=== PATIENT | female | born 1930 | race Caucasian/White ===

== ENCOUNTER 2018-11-25 21:15 | Inpatient (IN) | payer OTHER ==
[~2018-11-25] VITALS: Ht 170.2 cm; Wt 78.9 kg
[2018-11-25 21:30] VITALS: Ht 170.2 cm; Wt 78.9 kg
[2018-11-25] MEDS ORDERED: SOD CHLORIDE 0.9% 2,860 ML IV ONE (22:00)
[2018-11-25] MEDS ORDERED: CEFEPIME 2GM/50 ML (PMX) 50 ML IVPB STA (22:46)
[2018-11-25] MEDS ORDERED: VANCOMYCIN 1 GM (PMX) 250 ML IVPB ONE (23:00)
--- NOTE | 2018-11-25 23:55 | ERD ---
ER Documentation Chief Complaint Chief Complaint BIB RA FROM BOARD AND CARE FOR HYPOTENSION AND LOW O2 SAT HPI 88-year-old female brought in by ambulance from her board and care for low oxygen saturations and hypotension. However when ambulance did her vitals, they did not note any low blood pressure. Her oxygen saturation was in the 90s. Patient is otherwise altered and unable to answer questions appropriately. She only states that she does not feel well but is unable to explain further. ROS Limited due to altered mental status Allergies Allergies: Coded Allergies: No Known Allergy (Unverified , 11/25/18) PMhx/Soc Medical and Surgical Hx: Unable to obtain History of Surgery: No (UNABLE TO OBTAIN) Anesthesia Reaction: No Hx Neurological Disorder: Yes (ALZHEIMER'S) Hx Respiratory Disorders: No Hx Cardiac Disorders: Yes (CHF, AFIB) Hx Psychiatric Problems: No Hx Miscellaneous Medical Probl: No Hx Alcohol Use: No Hx Substance Use: No Hx Tobacco Use: No Smoking Status: Unknown if ever smoked FmHx Unable to obtain Physical Exam Vitals Vital Signs Date Temp Pulse Resp B/P (MAP) Pulse Ox O2 O2 Flow FiO2 Time Delivery Rate 11/25/18 71 20 124/85 97 Nasal 2.0 23:30 (98) Cannula 11/25/18 76 25 130/94 96 Nasal 2.0 23:00 (106) Cannula 11/25/18 98.4 78 20 104/38 98 Nasal 2.0 22:30 (60) Cannula 11/25/18 98.8 77 20 113/62 91 21:30 (79) Physical Exam INITIAL VITAL SIGNS: Reviewed by me GENERAL: Patient is lying on gurney, no apparent distress, ill-appearing HEAD: Normocephalic EYES: EOMI. PERRL. No icterus. No pallor. Lids, lashes, and conjunctiva clear. ENT: Mucous membranes dry, no erythema or tonsillar exudates. Airway patent. NECK: Supple. No masses. Full range of motion. No meningismus. No lymphadenopathy RESPIRATORY: Clear to auscultation bilaterally but poor respiratory effort. No wheezing, No rales, No rhonchi. No accessory muscle use. No retractions. CV: Regular rate and rhythm. No murmurs, No rubs or gallops. ABDOMEN: Soft, non-distended, no grimacing with palpation. No guarding. No rebound. No pulsatile mass. Bowel sounds normal. BACK: Non-tender. No CVA tenderness. EXTREMITIES: No edema. No clubbing or cyanosis. Pulses symmetric. No deficits or delays. Calves non-tender. No cords. SKIN: Warm and dry. Decreased turgor. No obvious rash, petechiae or purpura. NEUROLOGIC: Awake and alert. Normal speech. Oriented to self only. Moves all extremities equally. No focal deficits. Result Diagram: 11/26/18 0706 11/26/18 07 Results 24 hrs Laboratory Tests Test 11/25/18 21:51 11/25/18 21:52 11/25/18 21:59 11/25/18 22:36 White Blood Count 7.9 10^3/ul Red Blood Count 3.90 10^6/ul Hemoglobin 12.0 g/dl Hematocrit 36.7 % Mean Corpuscular 94.1 fl Volume Mean Corpuscular 30.8 pg Hemoglobin Mean Corpuscular 32.7 g/dl Hemoglobin Concent Red Cell 16.0 % Distribution Width Platelet Count 53 10^3/UL Mean Platelet Volume 13.1 fl Immature 0.400 % Granulocytes % Neutrophils % % Segmented 75 % Neutrophils % (Manual) Band Neutrophils % 19 % (Manual) Lymphocytes % % Lymphocytes % 5 % (Manual) Monocytes % % Monocytes % (Manual) 1 % Eosinophils % % Basophils % % Nucleated Red Blood 0.3 /100WBC Cells % Immature 0.030 10^3/ul Granulocytes # Neutrophils # 10^3/ul Neutrophils # 6.0 10^3/ul (Manual) Band Neutrophils # 1.5 10^3/ul Lymphocytes (Manual) 0.3 10^3/ul Lymphocytes # 10^3/ul Monocytes # 10^3/ul Monocytes # (Manual) 0.0 10^3/ul Eosinophils # 10^3/ul Basophils # 10^3/ul Nucleated Red Blood 10^3/ul Cells # Platelet Estimate DECREASED Giant Platelets 3 % Polychromasia 2+ Anisocytosis 2+ Macrocytosis 2+ Lactic Acid Level 4.3 mmol/L Ammonia 55 umol/l Sodium Level 139 mmol/L Potassium Level 3.9 mmol/L Chloride Level 108 mmol/L Carbon Dioxide Level 22 mmol/L Anion Gap 9 Blood Urea Nitrogen 39 mg/dl Creatinine 0.72 mg/dl Est Glomerular mL/min Filtrat Rate mL/min Glucose Level 169 mg/dl Calcium Level 9.3 mg/dl Total Bilirubin 1.1 mg/dl Direct Bilirubin 0.00 mg/dl Indirect Bilirubin 1.1 mg/dl Aspartate Amino 53 IU/L Transf (AST/SGOT) Alanine 36 IU/L Aminotransferase (AL T/SGPT) Alkaline Phosphatase 116 IU/L Troponin I 0.727 ng/ml Total Protein 4.7 g/dl Albumin 2.2 g/dl Globulin 2.50 g/dl Albumin/Globulin 0.88 Ratio Free Thyroxine Index 1.87 ug/ml Thyroxine (T4) 3.6 ug/dl Triiodothyronine 52.0 % (T3) Uptake Salicylates Level < 1.0 mg/dl Acetaminophen Level < 10.0 ug/ml Ethyl Alcohol Level < 10.0 mg/dl Bedside Glucose 155 mg/dL Urine Opiates Screen Negative Urine Barbiturates Negative Urine Amphetamines Negative Screen Urine Negative Benzodiazepines Screen Urine Cocaine Screen Negative Urine Cannabinoids Negative Test 11/25/18 23:16 11/25/18 23:24 Urine Color SCOTT Urine Clarity SLIGHTLY CLOUDY Urine pH 5.0 Urine Specific 1.021 [place] Urine Ketones NEGATIVE mg/dL Urine Nitrite NEGATIVE mg/dL Urine Bilirubin NEGATIVE mg/dL Urine Urobilinogen 1+ mg/dL Urine Leukocyte TRACE Casey/ul Esterase Urine Microscopic 2 /HPF RBC Urine Microscopic 15 /HPF WBC Urine Squamous FEW /HPF Epithelial Cells Urine Transitional FEW /HPF Epithelial Cells Urine Bacteria FEW /HPF Urine Mucus FEW /HPF Urine Hemoglobin NEGATIVE mg/dL Urine Glucose NEGATIVE mg/dL Urine Total Protein NEGATIVE mg/dl Lactic Acid Level 3.7 mmol/L Thyroid Stimulating 4.630 MIU/L Hormone (TSH) Current Medications Medications Dose Sig/Stanley Start Time Status Last (Trade) Ordered Route PRN Stop Time Admin Dose Reason Admin Sodium 2,860 ml @ BOLUS X1 11/25/18 DC 11/25/18 Chloride 1,430 mls/hr ONCE IV 22:00 11/26/18 22:01 10:23 Cefepime HCl 50 ml @ ONCE STAT 11/25/18 DC 11/25/18 100 mls/hr IVPB 22:46 11/25/18 23:49 23:15 Vancomycin 250 ml @ ONCE ONCE 11/25/18 DC 11/25/18 HCl 125 mls/hr IVPB 23:00 11/26/18 23:49 00:59 Procedures/MDM EMERGENT LABS AND DIAGNOSTIC STUDIES: Lab Results above were reviewed and interpreted by me. CBC: Mild anemia, thrombocytopenia CMP: Elevated BUN with normal creatinine, likely secondary to dehydration and prerenal azotemia. No evidence of clinically significant electrolyte abnormality, acidosis, renal failure, hypoglycemia, liver disease, or biliary obstruction Troponin elevated, c concerning for NSTEMI Lactate elevated, concerning for hypoperfusion and septic shock UA: no clear evidence of infection 12-lead EKG was interpreted by Beverly Gibson MD: Sinus rhythm with PVCs Normal axis Normal intervals No acute ST or T wave changes suggestive of acute ischemia or STEMI. Radiology Results as interpreted by Radiology below were reviewed by SAntony Ashby. Pepe shaw MD: Chest x-ray: Cardiomegaly. Left greater than right pleural effusions with associated basilar atelectasis versus infiltrates. CT head pending Initial Nursing notes reviewed. Previous Medical Records requested via the Electronic Health Record. EMERGENCY DEPARTMENT COURSE / MEDICAL DECISION MAKING: Admit MDM: Patient is presenting with altered mental status. She does look clinically dehydrated. Workup did not show any specific source of infection. CT head was still pending on admission. She was treated with IV fluids and antibiotics. the patient's infectious symptoms have not stabilized, and the patient is at risk of rapid decompensation. The patient will be admitted for careful hydration, antibiotic therapy, and infectious source control. I spoke with Maury and the authorized admission here as the patient is unstable. Severe Sepsis criteria: Infectious source: Unknown End organ damage indicated by: Lactate > 2.0 mmol/L Sepsis Management: Time of recognition of severe sepsis: 22:39 Within 3 hours of recognition: Blood cultures x 2 before broad-spectrum antibiotics:Yes 30 ml/kg NS bolus Completed Initial lactate 4.3 Repeat lactate pending Septic Shock Assessment: Any lactic acid > 4.0 YES Persistent hypotension (SBP < 90 or 40 mmHg drop, MAP < 65) despite 30 mL/kg IV fluid bolus No A focused sepsis perfusion/reperfusion reassessment examination was performed post 30ml/kg bolus @ 23:30 Temp 98.4F, BP 124/85, HR 71, RR 20, Pox 95% Accepting Care Team Current data and ongoing care discussed. Admitting Physician: Abdullahi Robotic Maintenance Technician(s): Outstanding Data: cultures Critical Care Time: 40 minutes Treatments/Evaluations: Close monitoring and treatment of unstable vital signs, cardiorespiratory, and neurologic status, while maintaining tight balance of fluid, respiratory, and cardiac interventions. This includes the administration of emergency fluid management while maintaining close respiratory support as well as the provision of immediate and broad-spectrum antibiotic therapy, while performing a simultaneous assessment for possible sources in order to direct ta rgeted therapy. This time includes discussing the case with the patient and the patients family.This time also includes the consideration for invasive and chemical support to prevent cardiopulmonary collapse. This time does not include all procedures stated elsewhere in this record. This time also includes reviewing old records, labs and radiological studies. This time includes examining and reexamining the patient. Additionally, this time also includes arranging care with admitting and consulting physicians. Departure Diagnosis: Primary Impression: Lactic acidosis Additional Impressions: Severe dehydration Prerenal azotemia Non-STEMI (non-ST elevated myocardial infarction) Altered mental status Altered mental status type: unspecified Qualified Codes: R41.82 - Altered mental status, unspecified Condition: Critical LIZ GIBSON MD Nov 25, 2018 23:54
[2018-11-26] VITALS (13 sets, daily range): BP systolic 122–136; BP diastolic 62–70; PULSE 37–90; RESP 17–18
[2018-11-26] MEDS ORDERED: NACL 0.9% 3 ML SYG IV SCH
[2018-11-26] MEDS ORDERED: DOCUSATE SODIUM 100 MG CAP PO PRN
[2018-11-26] MEDS ORDERED: PIPER-TAZO 3.375 GM IV (PMX) 100 ML IVPB SCH
[2018-11-26] MEDS ORDERED: ACETAMINOPHEN 325 MG TAB PO PRN
[2018-11-26] MEDS ORDERED: ONDANSETRON 4 MG INJ IV PRN ×2
--- NOTE | 2018-11-26 01:00 | HP ---
Date/Time of Note Date/Time of Note DATE: 11/26/18 TIME: 01:00 Assessment/Plan VTE Prophylaxis SCD applied (from Ns): No SCD contraindicated: other (Will obtain right lower extremity Dopplers to rule out DVT prior to initiating SCDs) Pharmacological prophylaxis: NA/contraindicated Pharm contraindication: thrombocytopenia Lines/Catheters [facility] Saline Lock Urinary Cath still in place: Yes Reason Cath still needed: other (indicate) (critical illness) Assessment/Plan Hospital Course This is a 88-year-old female was being admitted to the telemetry floor for: #1 acute on chronic encephalopathy: Unsure patient's baseline. She does have Alzheimer's. Possibly secondary to underlying urinary tract infection. CT scan of the brain did not show any acute ab normality's. Will monitor closely. We will need to discuss with family regarding patient's baseline status. Her daughter Britany does state that she will come visit her in the hospital today. #2 non-STEMI: Type I versus type II. Patient at the current time is not complaining of any chest pain and she does not appear to be in any acute dist ress. Secondary to demand given patient's underlying urinary tract infection. Will trend cardiac enzymes, will consult cardiology. Will check an echocardiogram. Consider aspirin, though will need to monitor her thrombocytopenia. #3 Lower extremity edema: possibly underlying CHF. will check echo. She did receive fluid bolus in the ED, at the current time will try albumin instead of IVF given overload state. #4 lactic acidosis: Possibly secondary to underlying dehydration, urinary tract infection. Will give albumin at the current time given the fact that the patient has had bilateral lower extremity edema as well as some mild congestion noted on the chest x-ray. She does not appear to be in any respiratory distress at the current time. Will trend lactic acid levels. Continue antibiotics. #5 Question urinary tract infection: aztreonam at the current time, will hold vancomycin and cefepime secondary to patient's thrombus cytopenia. Await culture results. #6 thrombocytopenia: Etiology unknown, will check an abdominal ultrasound to assess liver and spleen. Will hold off on any anticoagulation at the current time. #7 CODE STATUS: DNR/DNI, I did discuss with the daughter Britany over the phone regarding the patient's clinical condition. At the current time we will try con servative treatment and if any other clinical conditions arise will discuss further care with the daughter Britany. She does understand her mother's overall health as well as poor functionality/stability. her phone number is in the patient's paper chart and she will be coming to visit her mother today. Consider hospice evaluation. Further treatment strategy will be implemented as per the clinical course Result Diagram: 11/25/18215011/25/182151 Results 24hrs Laboratory Tests Test 11/25/18 21:51 11/25/18 21:52 11/25/18 21:59 11/25/18 22:36 White Blood Count 7.9 Red Blood Count 3.90 L Hemoglobin 12.0 Hematocrit 36.7 L Mean Corpuscular 94.1 Volume Mean Corpuscular 30.8 Hemoglobin Mean Corpuscular 32.7 Hemoglobin Concent Red Cell 16.0 H Distribution Width Platelet Count 53 L Mean Platelet 13.1 H Volume Immature 0.400 Granulocytes % Neutrophils % Segmented 75 Neutrophils % (Manual) Band Neutrophils % 19 H (Manual) Lymphocytes % Lymphocytes % 5 L (Manual) Monocytes % Monocytes % 1 (Manual) Eosinophils % Basophils % Nucleated Red 0.3 H Blood Cells % Immature 0.030 Granulocytes # Neutrophils # Neutrophils # 6.0 (Manual) Band Neutrophils # 1.5 H Lymphocytes 0.3 L (Manual) Lymphocytes # Monocytes # Monocytes # 0.0 L (Manual) Eosinophils # Basophils # Nucleated Red Blood Cells # Platelet Estimate DECREASED Giant Platelets 3 H Polychromasia 2+ Anisocytosis 2+ Macrocytosis 2+ Lactic Acid Level 4.3 *H Ammonia 55 H Sodium Level 139 Potassium Level 3.9 Chloride Level 108 Carbon Dioxide 22 Level Anion Gap 9 Blood Urea 39 H Nitrogen Creatinine 0.72 Est Glomerular Filtrat Rate mL/min Glucose Level 169 Calcium Level 9.3 Total Bilirubin 1.1 Direct Bilirubin 0.00 Indirect Bilirubin 1.1 Aspartate Amino 53 H Transf (AST/SGOT) Alanine 36 Aminotransferase ( ALT/SGPT) Alkaline 116 Phosphatase Troponin I 0.727 *H Total Protein 4.7 L Albumin 2.2 L Globulin 2.50 Albumin/Globulin 0.88 Ratio Free Thyroxine 1.87 Index Thyroxine (T4) 3.6 L Triiodothyronine 52.0 H (T3) Uptake Salicylates Level < 1.0 L Acetaminophen < 10.0 L Level Ethyl Alcohol < 10.0 H Level Bedside Glucose 155 Urine Opiates Negative Screen Urine Barbiturates Negative Urine Amphetamines Negative Screen Urine Negative Benzodiazepines Screen Urine Cocaine Negative Screen Urine Cannabinoids Negative Test 11/25/18 23:16 11/25/18 23:24 Urine Color SCOTT Urine Clarity SLIGHTLY CLOUDY A Urine pH 5.0 Urine Specific 1.021 [place] Urine Ketones NEGATIVE Urine Nitrite NEGATIVE Urine Bilirubin NEGATIVE Urine Urobilinogen 1+ H Urine Leukocyte TRACE A Esterase Urine Microscopic 2 RBC Urine Microscopic 15 H WBC Urine Squamous FEW Epithelial Cells Urine Transitional FEW A Epithelial Cells Urine Bacteria FEW A Urine Mucus FEW A Urine Hemoglobin NEGATIVE Urine Glucose NEGATIVE Urine Total NEGATIVE Protein Lactic Acid Level 3.7 *H Thyroid 4.630 Stimulating Hormone (TSH) HPI/ROS Admit Date/Time Admit Date/Time Hx of Present Illness Chief complaint: Hypertension, low oxygenation and boarding care The following history was obtained from the ED physician documentation as well as from the daughter Britany over the phone as patient was not able to provide hi story given her Alzheimer's. This 88-year-old female brought in by ambulance from her board and care for low oxygen saturations and hypotension. However when ambulance did her vitals, they did not note any low blood pressure. Her oxygen saturation was in the 90s. Patient is otherwise altered and unable to answer questions appropriately. She only states that she does not feel well but is unable to explain further. On exam she does not appear to be in any acute distress. She does appear to be dehydrated. She does have bilateral lower extremity edema right greater than left. Of note there was not much history provided from the boarding care aside from that the patient has Alzheimer's. And the patient's daughter did not know specifically what medications the patient was on. Allergies: NKDA Medications: Unknown ROS Subjective hx not possible: other (Alzheimer's dementia unable to provide adequate history) PMH/Family/Social Past Medical History Alzheimer's Medications Current Medications Vancomycin HCl 250 ml @ 125 mls/hr ONCE ONCE IVPB Last administered on 11/25/18at 23:49; Admin Dose 125 MLS/HR; Start 11/25/18 at 23:00; Stop 11/26/18 at 00:59 Ondansetron HCl (Zofran Inj) 4 mg ER BRIDGE PRN IV NAUSEA/VOMITING; Start 11/26/18 at 00:00; Stop 11/26/18 at 23:59 Acetaminophen (Tylenol Tab) 650 mg ER BRIDGE PRN PO .MILD PAIN 1-3 OR TEMP; Start 11/26/18 at 00:00; Stop 11/26/18 at 23:59 IV Flush (NS 3 ml) 3 ml PER PROTOCOL IV ; Start 11/26/18 at 00:00 Ondansetron HCl (Zofran Inj) 4 mg Q6H PRN IV NAUSEA/VOMITING; Start 11/26/18 at 00:00 Acetaminophen (Tylenol Tab) 650 mg Q6H PRN PO .PAIN 1-3 OR TEMP; Start 11/26/18 at 00:00 Docusate Sodium (Colace) 100 mg Q12H PRN PO .CONSTIPATION; Start 11/26/18 at 00:00 Bisacodyl (Dulcolax) 5 mg DAILY PRN PO .CONSTIPATION; Start 11/26/18 at 00:00 Albumin Human 100 ml @ 100 mls/hr Q1H IV ; Start 11/26/18 at 00:00; Stop 11/26/18 at 01:59 Aztreonam 50 ml @ 100 mls/hr Q12 IVPB ; Start 11/26/18 at 04:00; Status UNV Coded Allergies: No Known Allergy (Unverified , 11/25/18) Past Surgical History Past Surgical Hx: no surgical history Family History Significant Family History: no pertinent family hx Social History Alcohol Use: none Smoking Status: Never smoker Drug Use: none Exam/Review of Systems Vital Signs Vitals Vital Signs Date Temp Pulse Resp B/P (MAP) Pulse Ox O2 O2 Flow FiO2 Time Delivery Rate 11/25/18 76 25 130/94 96 Nasal 2.0 23:00 (106) Cannula 11/25/18 98.4 22:30 Intake and Output 11/25/18 11/25/18 11/26/18 1414:59 22:59 06:59 IntakeIntake Total 2910 ml BalanceBalance 2910 ml Exam Exam General: Patient is currently lying in bed, she does not appear to be in any ac reji distress, she does have Alzheimer's and does not hemorrhage do appear dry HEENT: Atraumatic, normocephalic. The pupils are equal, round and reactive. Extraocular motor are intact, mucous members dry Neck: Supple with full range of motion. No rigidity or meningismus Chest: Nontender Lungs: Clear to auscultation bilaterally no crackles rales or wheezing Heart: Normal S1-S2, Regular rhythm and rate. No murmur, S3, or S4 Abdomen: Soft , nontender, nondistended , bowel sounds are present. No guarding no rebound tenderness , No masses or organomegaly. No costovertebral temporal angle mass Extremities: Bilateral lower extremity edema, greater on the right leg Neurologic: Awake, unable to provide meaningful history given patient's Alzheimer's. I am unsure of her baseline at the current moment as well. Additional Comments PROCEDURE: XR Chest. CLINICAL INDICATION: Altered mental status. TECHNIQUE: Single frontal chest x-ray. COMPARISON: None. FINDINGS: Heart is enlarged.. There is no congestive heart failure.. There are left greater right pleural effusions with associated basilar atelectasis versus infiltrate.. There is no pleural effusion. There is no pneumothorax. There are degenerative changes of the thoracic spine and shoulders.. IMPRESSION: Cardiomegaly. Left arm right pleural effusions with associated basilar atelectasis versus infiltrates. RPTAT: HMVK .Mathieu Lunsford MD, MD Date Time Electronically viewed and signed by .Mathieu Lunsford MD, on 11/25/2018 23:03 .K/ CC: LIZ VILLARREAL MD [id number] 12-lead EKG Normal Sinus Rhythm with ventricular rate of [] beats per minute Normal axis Normal intervals No acute ST or T wave changes suggestive of acute ischemia or STEMI. JOE MUNOZ Nov 26, 2018 01:00
[2018-11-26] MEDS: ALBUMIN HUMAN 25% 100 ML IV SCH ×3 (01:08→02:09)
[2018-11-26] MEDS ORDERED: AZTREONAM 1 GM/NS (PMX) 50 ML IVPB SCH (04:00)
[2018-11-26] MEDS ORDERED: ASPIRIN (EC) 325 MG TAB PO ONE (09:30)
--- NOTE | 2018-11-26 11:17 | RADRPT ---
Echocardiogram Report Patient Name: VIPIN ANDRESPatient ID: [id number] : [id number] (88y 6m)Study Date: 11/26/2018 8:02:37 AM Gender: FAccession #: [id number] Tech: Rodney Lopes [facility] Location: [id number]- Ref.Physician: JOE MUNOZ Height(Cm): BSA: Weight(Kg): Quality: AdequateAccount #: Procedures: Echocardiographic Report: Transthoracic echocardiogram with complete 2D, M-Mode, and doppler examination. Indications: Elevated Troponin. Measurements: 2D/M Mode Doppler Measurement Value Normal Range Measurement Value Normal Range LVIDd 2D 5.7 [ 3.8 - 5.2 ] cm GILBERTO VTI 0.5 [ 2.0 - 4.0 ] cm2 LVIDs 2D 5.1 [ 2.2 - 3.5 ] cm AV Mean Xavier 2.3 [ 70.0 - 90.0 ] cm/sec LVPWd 2D 0.9 [ 0.6 - 0.9 ] cm AV Mean PG 24.0 [ 2.0 - 4.0 ] mmHg IVSd 2D 0.8 [ 0.6 - 0.9 ] cm AV Peak Xavier 2.7 [ 100.0 - 170.0 ] cm/se c AoR Diam 2D 2.8 [ 2.3 - 3.1 ] cm AV Peak PG 28.0 [ 2.0 - 9.0 ] mmHg EDV 2D 161.0 [ 46.0 - 106.0 ] ml AV VTI 90.2 cm ESV 2D 122.0 [ 14.0 - 42.0 ] ml LVOT Mean Xavier 0.3 [ 60.0 - 80.0 ] cm/sec EF 2D 24.2 [ 54.0 - 74.0 ] percent LVOT Peak Xavier 0.5 [ 70.0 - 110.0 ] cm/sec LA Dimen 2D 3.7 [ 2.7 - 3.8 ] cm LVOT Peak PG 1.0 [ 2.0 - 6.0 ] mmHg LVOT Diam 2.0 [ 2.1 - 2.5 ] cm LVOT VTI 13.4 [ 20.0 - 30.0 ] cm MV E Peak Xavier 0.6 [ 60.0 - 130.0 ] cm/sec MV A Peak Xavier 0.6 [ 100.0 - 120.0 ] cm/se c MV E/A 0.9 [ 0.8 - 1.5 ] ratio MV PHT 55.0 [ 20.0 - 100.0 ] msec MV Decel Time 187 [ 104 - 258 ] msec MV Decel [place] 3 Lat E` Xavier 0.0 [ 10.0 - 15.0 ] cm/sec Lateral E/E` 15.6 [ 1.0 - 2.0 ] ratio Med E` Xavier 0.0 cm/sec MV E/A 0.9 [ 0.8 - 1.5 ] ratio MVA PHT 4.0 [ 2.0 - 4.0 ] cm2 TR Peak Xavier 3.0 [ 100.0 - 280.0 ] cm/se c TR Peak PG 37.0 mmHg RVSP 37.0 [ 10.0 - 36.0 ] mmHg RA Pressure 12.0 mmHg Findings: Left Ventricle: Normal left ventricular wall thickness. Mild enlargement of left ventricle cavity. Severe global left ventricular systolic dysfunction. Ejection fraction is visually estimated at 30 %. Tissue Doppler/Mitral Doppler indices are consistent with impaired relaxation (Stage I diastolic dysfunction). Right Ventricle: Normal right ventricular size. Moderate right ventricular hypokinesis. Left Atrium: There is moderate enlargement of left atrium. Right Atrium: There is moderate enlargement of right atrium. Atrial Septum: Normal atrial septum. Ventricular septum: Normal/intact ventricular septum. Mitral Valve: Normal appearance of the mitral valve. Mild mitral valve regurgitation. Aortic Valve: Severe aortic stenosis. Aortic valve Max velocity 3.26 m/sec. Max PG 42.40 mmHg. Mean PG 24.00 mmHg. Aortic valve area 0.47 cm2. Aortic cusps appear severely calcified. Mild aortic valve regurgitation. Tricuspid Valve: Normal appearance of the tricuspid valve. Estimated peak PA systolic pressure 49 mmHg. There is mild to moderate tricuspid regurgitation. Pulmonic Valve: Normal pulmonic valve appearance. No evidence of pulmonic regurgitation. Pericardium: Pleural effusion seen. Aorta: Normal aortic root. IVC: Dilated inferior vena cava with poor inspiratory collapse consistent with elevated right atrial pressures. Pulmonary Artery: Not well visualized. Conclusions: Normal left ventricular wall thickness. Mild enlargement of left ventricle cavity. Severe global left ventricular systolic dysfunction. Ejection fraction is visually estimated at 30 %. Tissue Doppler/Mitral Doppler indices are consistent with impaired relaxation (Stage I diastolic dysfunction). Low-flow, low gradient severe aortic stenosis. Aortic valve Max velocity 3.26 m/sec. Max PG 42.40 mmHg. Mean PG 24.00 mmHg. Aortic valve area 0.47 cm2. Dimensionless index 0.14. Aortic cusps appear severely calcified. Mild aortic valve regurgitation. There is mild to moderate tricuspid regurgitation. There is moderate enlargement of left atrium.There is moderate enlargement of right atrium. Pleural effusion seen. Estimated peak PA systolic pressure 49 mmHg based on RA pressure of 15 mmHg. Electronically Signed By: Pavan Sam 2018-11-26 11:15:54 PDT
[2018-11-26] MEDS: FUROSEMIDE 20 MG INJ IV SCH ×2 (11:20→18:21)
--- NOTE | 2018-11-26 11:42 | PN ---
Date/Time of Note Date/Time of Note DATE: 11/26/18 TIME: 11:39 Assessment/Plan VTE Prophylaxis SCD applied (from Nsg): Yes Pharmacological prophylaxis: heparin Lines/Catheters IV Catheter Type (from Nrsg): Saline Lock Urinary Cath still in place: Yes Reason Cath still needed: urinary retention Assessment/Plan Hospital Course EXAM: Resitng comfotably Mild tachypnea + JVD 2/6 systolic murmur Tachypneic, nonlabored Abdomen soft, mild tenderness to deep palpation in RUQ No peripheral edema A/P: 88 yo female with dementia who presented with respiratory distress and hypotension. Found to have systolic CHF, , bactremia and possible cholecystitis Acute systolic CHF with causing b/l pleural effusions and respiratory failure: - Cautious diuresis initiated bacteremia with possible cholecytisis: - Continue vanco/aztreonema - Await BC speciation - Cholecystostomy tube evaluation Dementia: - Stable NSTEMI: - Likely type II CT DNR per family Result Diagram: 11/26/18 0706 11/26/18 0706 Results 24hrs Laboratory Tests Test 11/25/18 21:51 11/25/18 21:52 11/25/18 21:59 11/25/18 22:36 White Blood Count 7.9 Red Blood Count 3.90 L Hemoglobin 12.0 Hematocrit 36.7 L Mean Corpuscular 94.1 Volume Mean Corpuscular 30.8 Hemoglobin Mean Corpuscular 32.7 Hemoglobin Concent Red Cell 16.0 H Distribution Width Platelet Count 53 L Mean Platelet 13.1 H Volume Immature 0.400 Granulocytes % Neutrophils % Segmented 75 Neutrophils % (Manual) Band Neutrophils % 19 H (Manual) Lymphocytes % Lymphocytes % 5 L (Manual) Monocytes % Monocytes % 1 (Manual) Eosinophils % Basophils % Nucleated Red 0.3 H Blood Cells % Immature 0.030 Granulocytes # Neutrophils # Neutrophils # 6.0 (Manual) Band Neutrophils # 1.5 H Lymphocytes 0.3 L (Manual) Lymphocytes # Monocytes # Monocytes # 0.0 L (Manual) Eosinophils # Basophils # Nucleated Red Blood Cells # Platelet Estimate DECREASED Giant Platelets 3 H Polychromasia 2+ Anisocytosis 2+ Macrocytosis 2+ Lactic Acid Level 4.3 *H Ammonia 55 H Sodium Level 139 Potassium Level 3.9 Chloride Level 108 Carbon Dioxide 22 Level Anion Gap 9 Blood Urea 39 H Nitrogen Creatinine 0.72 Est Glomerular Filtrat Rate mL/min Glucose Level 169 Calcium Level 9.3 Total Bilirubin 1.1 Direct Bilirubin 0.00 Indirect Bilirubin 1.1 Aspartate Amino 53 H Transf (AST/SGOT) Alanine 36 Aminotransferase ( ALT/SGPT) Alkaline 116 Phosphatase Troponin I 0.727 *H Total Protein 4.7 L Albumin 2.2 L Globulin 2.50 Albumin/Globulin 0.88 Ratio Free Thyroxine 1.87 Index Thyroxine (T4) 3.6 L Triiodothyronine 52.0 H (T3) Uptake Salicylates Level < 1.0 L Acetaminophen < 10.0 L Level Ethyl Alcohol < 10.0 H Level Bedside Glucose 155 Urine Opiates Negative Screen Urine Barbiturates Negative Urine Amphetamines Negative Screen Urine Negative Benzodiazepines Screen Urine Cocaine Negative Screen Urine Cannabinoids Negative Test 11/25/18 23:16 11/25/18 23:24 11/26/18 01:26 11/26/18 01:27 Urine Color SCOTT Urine Clarity SLIGHTLY CLOUDY A Urine pH 5.0 Urine Specific 1.021 [place] Urine Ketones NEGATIVE Urine Nitrite NEGATIVE Urine Bilirubin NEGATIVE Urine Urobilinogen 1+ H Urine Leukocyte TRACE A Esterase Urine Microscopic 2 RBC Urine Microscopic 15 H WBC Urine Squamous FEW Epithelial Cells Urine Transitional FEW A Epithelial Cells Urine Bacteria FEW A Urine Mucus FEW A Urine Hemoglobin NEGATIVE Urine Glucose NEGATIVE Urine Total NEGATIVE Protein Lactic Acid Level 3.7 *H 3.3 *H Thyroid 4.630 Stimulating Hormone (TSH) Creatine Kinase 38 Creatine Kinase 12.4 Index Creatinine Kinase 4.70 H MB (Mass) Troponin I 0.789 *H Test 11/26/18 07:06 White Blood Count 8.5 Red Blood Count 3.71 L Hemoglobin 11.3 L Hematocrit 35.1 L Mean Corpuscular 94.6 Volume Mean Corpuscular 30.5 Hemoglobin Mean Corpuscular 32.2 Hemoglobin Concent Red Cell 16.0 H Distribution Width Platelet Count 42 #L Mean Platelet 13.4 H Volume Immature 0.800 H Granulocytes % Neutrophils % Segmented 83 H Neutrophils % (Manual) Band Neutrophils % 12 H (Manual) Lymphocytes % Lymphocytes % 4 L (Manual) Monocytes % Monocytes % 1 (Manual) Eosinophils % Basophils % Nucleated Red 0.2 H Blood Cells % Immature 0.070 H Granulocytes # Neutrophils # Neutrophils # 7.1 (Manual) Band Neutrophils # 1.0 H Lymphocytes 0.3 L (Manual) Lymphocytes # Monocytes # Monocytes # 0.0 L (Manual) Eosinophils # Basophils # Nucleated Red Blood Cells # Platelet Estimate DECREASED Polychromasia 1+ Poikilocytosis 2+ Anisocytosis 1+ Macrocytosis 1+ Ovalocytes 1+ Sodium Level 140 Potassium Level 4.3 Chloride Level 111 H Carbon Dioxide 21 Level Anion Gap 8 Blood Urea 38 H Nitrogen Creatinine 0.62 Est Glomerular Filtrat Rate mL/min Glucose Level 107 # Hemoglobin A1c 5.2 Lactic Acid Level 2.6 *H Calcium Level 9.0 Magnesium Level 1.9 Total Bilirubin 1.2 Direct Bilirubin 0.00 Indirect Bilirubin 1.2 H Aspartate Amino 72 H Transf (AST/SGOT) Alanine 31 Aminotransferase ( ALT/SGPT) Alkaline 98 Phosphatase Creatine Kinase 64 Creatine Kinase 18.3 Index Creatinine Kinase 11.70 H MB (Mass) Troponin I 1.400 *H B-Type Natriuretic 7210 H Peptide Total Protein 5.5 L Albumin 2.8 L Globulin 2.70 Albumin/Globulin 1.03 Ratio Triglycerides 64 Level Cholesterol Level 81 L LDL Cholesterol, 39 Calculated HDL Cholesterol 29 L Cholesterol/HDL 2.7 Ratio Subjective 24 Hr Interval Summary Free Text/Dictation Patient appears comfortable Clearly with dementia though able to answer simple questions Does not seem to have any major pain Exam/Review of Systems Exam Vitals Vital Signs Date Temp Pulse Resp B/P (MAP) Pulse Ox O2 O2 Flow FiO2 Time Delivery Rate 11/26/18 Nasal 2.0 08:30 Cannula 11/26/18 60 08:01 11/26/18 98.2 18 124/70 98 07:34 (88) Intake and Output 11/25/18 11/25/18 11/26/18 1515:00 23:00 07:00 IntakeIntake Total 2910 ml BalanceBalance 2910 ml Results Results 24hrs Laboratory Tests Test 11/25/18 21:51 11/25/18 21:52 11/25/18 21:59 11/25/18 22:36 White Blood Count 7.9 Red Blood Count 3.90 L Hemoglobin 12.0 Hematocrit 36.7 L Mean Corpuscular 94.1 Volume Mean Corpuscular 30.8 Hemoglobin Mean Corpuscular 32.7 Hemoglobin Concent Red Cell 16.0 H Distribution Width Platelet Count 53 L Mean Platelet 13.1 H Volume Immature 0.400 Granulocytes % Neutrophils % Segmented 75 Neutrophils % (Manual) Band Neutrophils % 19 H (Manual) Lymphocytes % Lymphocytes % 5 L (Manual) Monocytes % Monocytes % 1 (Manual) Eosinophils % Basophils % Nucleated Red 0.3 H Blood Cells % Immature 0.030 Granulocytes # Neutrophils # Neutrophils # 6.0 (Manual) Band Neutrophils # 1.5 H Lymphocytes 0.3 L (Manual) Lymphocytes # Monocytes # Monocytes # 0.0 L (Manual) Eosinophils # Basophils # Nucleated Red Blood Cells # Platelet Estimate DECREASED Giant Platelets 3 H Polychromasia 2+ Anisocytosis 2+ Macrocytosis 2+ Lactic Acid Level 4.3 *H Ammonia 55 H Sodium Level 139 Potassium Level 3.9 Chloride Level 108 Carbon Dioxide 22 Level Anion Gap 9 Blood Urea 39 H Nitrogen Creatinine 0.72 Est Glomerular Filtrat Rate mL/min Glucose Level 169 Calcium Level 9.3 Total Bilirubin 1.1 Direct Bilirubin 0.00 Indirect Bilirubin 1.1 Aspartate Amino 53 H Transf (AST/SGOT) Alanine 36 Aminotransferase ( ALT/SGPT) Alkaline 116 Phosphatase Troponin I 0.727 *H Total Protein 4.7 L Albumin 2.2 L Globulin 2.50 Albumin/Globulin 0.88 Ratio Free Thyroxine 1.87 Index Thyroxine (T4) 3.6 L Triiodothyronine 52.0 H (T3) Uptake Salicylates Level < 1.0 L Acetaminophen < 10.0 L Level Ethyl Alcohol < 10.0 H Level Bedside Glucose 155 Urine Opiates Negative Screen Urine Barbiturates Negative Urine Amphetamines Negative Screen Urine Negative Benzodiazepines Screen Urine Cocaine Negative Screen Urine Cannabinoids Negative Test 11/25/18 23:16 11/25/18 23:24 11/26/18 01:26 11/26/18 01:27 Urine Color SCOTT Urine Clarity SLIGHTLY CLOUDY A Urine pH 5.0 Urine Specific 1.021 [place] Urine Ketones NEGATIVE Urine Nitrite NEGATIVE Urine Bilirubin NEGATIVE Urine Urobilinogen 1+ H Urine Leukocyte TRACE A Esterase Urine Microscopic 2 RBC Urine Microscopic 15 H WBC Urine Squamous FEW Epithelial Cells Urine Transitional FEW A Epithelial Cells Urine Bacteria FEW A Urine Mucus FEW A Urine Hemoglobin NEGATIVE Urine Glucose NEGATIVE Urine Total NEGATIVE Protein Lactic Acid Level 3.7 *H 3.3 *H Thyroid 4.630 Stimulating Hormone (TSH) Creatine Kinase 38 Creatine Kinase 12.4 Index Creatinine Kinase 4.70 H MB (Mass) Troponin I 0.789 *H Test 11/26/18 07:06 White Blood Count 8.5 Red Blood Count 3.71 L Hemoglobin 11.3 L Hematocrit 35.1 L Mean Corpuscular 94.6 Volume Mean Corpuscular 30.5 Hemoglobin Mean Corpuscular 32.2 Hemoglobin Concent Red Cell 16.0 H Distribution Width Platelet Count 42 #L Mean Platelet 13.4 H Volume Immature 0.800 H Granulocytes % Neutrophils % Segmented 83 H Neutrophils % (Manual) Band Neutrophils % 12 H (Manual) Lymphocytes % Lymphocytes % 4 L (Manual) Monocytes % Monocytes % 1 (Manual) Eosinophils % Basophils % Nucleated Red 0.2 H Blood Cells % Immature 0.070 H Granulocytes # Neutrophils # Neutrophils # 7.1 (Manual) Band Neutrophils # 1.0 H Lymphocytes 0.3 L (Manual) Lymphocytes # Monocytes # Monocytes # 0.0 L (Manual) Eosinophils # Basophils # Nucleated Red Blood Cells # Platelet Estimate DECREASED Polychromasia 1+ Poikilocytosis 2+ Anisocytosis 1+ Macrocytosis 1+ Ovalocytes 1+ Sodium Level 140 Potassium Level 4.3 Chloride Level 111 H Carbon Dioxide 21 Level Anion Gap 8 Blood Urea 38 H Nitrogen Creatinine 0.62 Est Glomerular Filtrat Rate mL/min Glucose Level 107 # Hemoglobin A1c 5.2 Lactic Acid Level 2.6 *H Calcium Level 9.0 Magnesium Level 1.9 Total Bilirubin 1.2 Direct Bilirubin 0.00 Indirect Bilirubin 1.2 H Aspartate Amino 72 H Transf (AST/SGOT) Alanine 31 Aminotransferase ( ALT/SGPT) Alkaline 98 Phosphatase Creatine Kinase 64 Creatine Kinase 18.3 Index Creatinine Kinase 11.70 H MB (Mass) Troponin I 1.400 *H B-Type Natriuretic 7210 H Peptide Total Protein 5.5 L Albumin 2.8 L Globulin 2.70 Albumin/Globulin 1.03 Ratio Triglycerides 64 Level Cholesterol Level 81 L LDL Cholesterol, 39 Calculated HDL Cholesterol 29 L Cholesterol/HDL 2.7 Ratio Medications Medication Current Medications Ondansetron HCl (Zofran Inj) 4 mg ER BRIDGE PRN IV NAUSEA/VOMITING; Start 11/26/18 at 00:00; Stop 11/26/18 at 23:59 Acetaminophen (Tylenol Tab) 650 mg ER BRIDGE PRN PO .MILD PAIN 1-3 OR TEMP; Start 11/26/18 at 00:00; Stop 11/26/18 at 23:59 IV Flush (NS 3 ml) 3 ml PER PROTOCOL IV ; Start 11/26/18 at 00:00 Ondansetron HCl (Zofran Inj) 4 mg Q6H PRN IV NAUSEA/VOMITING; Start 11/26/18 at 00:00 Acetaminophen (Tylenol Tab) 650 mg Q6H PRN PO .PAIN 1-3 OR TEMP; Start 11/26/18 at 00:00 Docusate Sodium (Colace) 100 mg Q12H PRN PO .CONSTIPATION; Start 11/26/18 at 00:00 Bisacodyl (Dulcolax) 5 mg DAILY PRN PO .CONSTIPATION; Start 11/26/18 at 00:00 Aztreonam 50 ml @ 100 mls/hr Q12H IVPB Last administered on 11/26/18at 03:42; Admin Dose 100 MLS/HR; Start 11/26/18 at 04:00 Furosemide (Lasix) 20 mg BID DIURETICS IV Last administered on 11/26/18at 11:20; Admin Dose 20 MG; Start 11/26/18 at 10:30 Aspirin (Aspirin) 81 mg DAILY PO ; Start 11/27/18 at 09:00; Status UNV Atorvastatin Calcium (Lipitor) 20 mg HS PO ; Start 11/26/18 at 21:00; Status UNV Vancomycin HCl (Vanco Iv Per Pharmacy) VANCOMYCIN PER PHARMACY PER PROTOCOL XX ; Start 11/26/18 at 12:00; Status UNV SCOTT JAIME MD Nov 26, 2018 11:42
--- NOTE | 2018-11-26 11:46 | CONS ---
Assessment/Plan Assessment/Plan Hospital Course (Demo Recall) NSTEMI: still likely type II in setting of severe , possible underlying CAD, sepsis, and now CHF. She was also reportedly hypotensive at the board and care. her troponin trend 0.7 then 0.7 on admission does not suggest ACS and the recent 1.4 is due to the 3L fluid she received. No symptoms and no EKG changes. I do not think heparin is a good idea at this time as she may need surgical inte rvention Severe : low-flow low-gradient. Acute on ?chronic systolic heart failure: EF 30%. Now decompensated after IVF Bacteremia: GPC chains. Possibly enterococcus from cholecystitis but also has a leg wound Sepsis Acute cholecystitis Dementia Incomplete data -no anticoagulation -trend trops -repeat CXR -ASA 81mg -lipitor 20mg -no BB with bradycardia -agree with gentle diuresis 20mg IV BID -antibiotics -too high risk for surgical cholecystectomy if indicated. Would consider cholecystostomy tube instead Consultation Date/Type/Reason Admit Date/Time Date of Consultation: Nov 26, 2018 Type of Consult Cardiology Reason for Consultation NSTEMI Requesting Provider: JOE MUNOZ Date/Time of Note DATE: 11/26/18 TIME: 11:33 Hx of Present Illness 88 yo F with unclear medical history except for dementia, who was brought in from her board and care for hypoxia and altered mentation. She was noted to have lactic acidosis and was given 3L IVF on admission and started on antibiotics. She was noted to have a troponin of 0.7 -->0.7-->this am 1.4. No EKG changes. This am her cultures are positive for GPC chains. Abd ultrasound shows acute c holecystitis. She is altered but able to note she has abdominal pain. No chest pain. Hemodynamically stable. Bradycardic at baseline. very limited due to dementia Past Medical History limited information Medications Current Medications Ondansetron HCl (Zofran Inj) 4 mg ER BRIDGE PRN IV NAUSEA/VOMITING; Start 11/26/18 at 00:00; Stop 11/26/18 at 23:59 Acetaminophen (Tylenol Tab) 650 mg ER BRIDGE PRN PO .MILD PAIN 1-3 OR TEMP; Start 11/26/18 at 00:00; Stop 11/26/18 at 23:59 IV Flush (NS 3 ml) 3 ml PER PROTOCOL IV ; Start 11/26/18 at 00:00 Ondansetron HCl (Zofran Inj) 4 mg Q6H PRN IV NAUSEA/VOMITING; Start 11/26/18 at 00:00 Acetaminophen (Tylenol Tab) 650 mg Q6H PRN PO .PAIN 1-3 OR TEMP; Start 11/26/18 at 00:00 Docusate Sodium (Colace) 100 mg Q12H PRN PO .CONSTIPATION; Start 11/26/18 at 00:00 Bisacodyl (Dulcolax) 5 mg DAILY PRN PO .CONSTIPATION; Start 11/26/18 at 00:00 Aztreonam 50 ml @ 100 mls/hr Q12H IVPB Last administered on 11/26/18at 03:42; Admin Dose 100 MLS/HR; Start 11/26/18 at 04:00 Furosemide (Lasix) 20 mg BID DIURETICS IV ; Start 11/26/18 at 10:30 Allergies: Coded Allergies: No Known Allergy (Unverified , 11/25/18) Past Surgical History Past Surgical Hx: no surgical history Social History Alcohol Use: none Smoking Status: Never smoker Drug Use: none Exam/Review of Systems Vital Signs Vitals Vital Signs Date Temp Pulse Resp B/P (MAP) Pulse Ox O2 O2 Flow FiO2 Time Delivery Rate 11/26/18 Nasal 2.0 08:30 Cannula 11/26/18 60 08:01 11/26/18 98.2 18 124/70 98 07:34 (88) Intake and Output 11/25/18 11/25/18 11/26/18 1515:00 23:00 07:00 IntakeIntake Total 2910 ml BalanceBalance 2910 ml Exam Constitutional: alert; No oriented, No distress Head: normocephalic, atraumatic Neck: jvd (10-12cm) Respiratory: crackles/rales; No clear to auscultation Cardiovascular: edema (1+), systolic murmur (3/6 late peaking KWAME); No regular rate and rhythm (bradycardic, normal rhythm) Gastrointestinal: soft; No non-tender (ruq tenderness ), No distended Musculoskeletal: No nl extremities to inspection Neurological: No nl mental status, No nl speech Labs Result Diagram: 11/26/1870511/26/18 07 Results 24hrs Laboratory Tests Test 11/25/18 21:51 11/25/18 21:52 11/25/18 21:59 11/25/18 22:36 White Blood Count 7.9 Red Blood Count 3.90 L Hemoglobin 12.0 Hematocrit 36.7 L Mean Corpuscular 94.1 Volume Mean Corpuscular 30.8 Hemoglobin Mean Corpuscular 32.7 Hemoglobin Concent Red Cell 16.0 H Distribution Width Platelet Count 53 L Mean Platelet 13.1 H Volume Immature 0.400 Granulocytes % Neutrophils % Segmented 75 Neutrophils % (Manual) Band Neutrophils % 19 H (Manual) Lymphocytes % Lymphocytes % 5 L (Manual) Monocytes % Monocytes % 1 (Manual) Eosinophils % Basophils % Nucleated Red 0.3 H Blood Cells % Immature 0.030 Granulocytes # Neutrophils # Neutrophils # 6.0 (Manual) Band Neutrophils # 1.5 H Lymphocytes 0.3 L (Manual) Lymphocytes # Monocytes # Monocytes # 0.0 L (Manual) Eosinophils # Basophils # Nucleated Red Blood Cells # Platelet Estimate DECREASED Giant Platelets 3 H Polychromasia 2+ Anisocytosis 2+ Macrocytosis 2+ Lactic Acid Level 4.3 *H Ammonia 55 H Sodium Level 139 Potassium Level 3.9 Chloride Level 108 Carbon Dioxide 22 Level Anion Gap 9 Blood Urea 39 H Nitrogen Creatinine 0.72 Est Glomerular Filtrat Rate mL/min Glucose Level 169 Calcium Level 9.3 Total Bilirubin 1.1 Direct Bilirubin 0.00 Indirect Bilirubin 1.1 Aspartate Amino 53 H Transf (AST/SGOT) Alanine 36 Aminotransferase ( ALT/SGPT) Alkaline 116 Phosphatase Troponin I 0.727 *H Total Protein 4.7 L Albumin 2.2 L Globulin 2.50 Albumin/Globulin 0.88 Ratio Free Thyroxine 1.87 Index Thyroxine (T4) 3.6 L Triiodothyronine 52.0 H (T3) Uptake Salicylates Level < 1.0 L Acetaminophen < 10.0 L Level Ethyl Alcohol < 10.0 H Level Bedside Glucose 155 Urine Opiates Negative Screen Urine Barbiturates Negative Urine Amphetamines Negative Screen Urine Negative Benzodiazepines Screen Urine Cocaine Negative Screen Urine Cannabinoids Negative Test 11/25/18 23:16 11/25/18 23:24 11/26/18 01:26 11/26/18 01:27 Urine Color SCOTT Urine Clarity SLIGHTLY CLOUDY A Urine pH 5.0 Urine Specific 1.021 [place] Urine Ketones NEGATIVE Urine Nitrite NEGATIVE Urine Bilirubin NEGATIVE Urine Urobilinogen 1+ H Urine Leukocyte TRACE A Esterase Urine Microscopic 2 RBC Urine Microscopic 15 H WBC Urine Squamous FEW Epithelial Cells Urine Transitional FEW A Epithelial Cells Urine Bacteria FEW A Urine Mucus FEW A Urine Hemoglobin NEGATIVE Urine Glucose NEGATIVE Urine Total NEGATIVE Protein Lactic Acid Level 3.7 *H 3.3 *H Thyroid 4.630 Stimulating Hormone (TSH) Creatine Kinase 38 Creatine Kinase 12.4 Index Creatinine Kinase 4.70 H MB (Mass) Troponin I 0.789 *H Test 11/26/18 07:06 White Blood Count 8.5 Red Blood Count 3.71 L Hemoglobin 11.3 L Hematocrit 35.1 L Mean Corpuscular 94.6 Volume Mean Corpuscular 30.5 Hemoglobin Mean Corpuscular 32.2 Hemoglobin Concent Red Cell 16.0 H Distribution Width Platelet Count 42 #L Mean Platelet 13.4 H Volume Immature 0.800 H Granulocytes % Neutrophils % Segmented 83 H Neutrophils % (Manual) Band Neutrophils % 12 H (Manual) Lymphocytes % Lymphocytes % 4 L (Manual) Monocytes % Monocytes % 1 (Manual) Eosinophils % Basophils % Nucleated Red 0.2 H Blood Cells % Immature 0.070 H Granulocytes # Neutrophils # Neutrophils # 7.1 (Manual) Band Neutrophils # 1.0 H Lymphocytes 0.3 L (Manual) Lymphocytes # Monocytes # Monocytes # 0.0 L (Manual) Eosinophils # Basophils # Nucleated Red Blood Cells # Platelet Estimate DECREASED Polychromasia 1+ Poikilocytosis 2+ Anisocytosis 1+ Macrocytosis 1+ Ovalocytes 1+ Sodium Level 140 Potassium Level 4.3 Chloride Level 111 H Carbon Dioxide 21 Level Anion Gap 8 Blood Urea 38 H Nitrogen Creatinine 0.62 Est Glomerular Filtrat Rate mL/min Glucose Level 107 # Hemoglobin A1c 5.2 Lactic Acid Level 2.6 *H Calcium Level 9.0 Magnesium Level 1.9 Total Bilirubin 1.2 Direct Bilirubin 0.00 Indirect Bilirubin 1.2 H Aspartate Amino 72 H Transf (AST/SGOT) Alanine 31 Aminotransferase ( ALT/SGPT) Alkaline 98 Phosphatase Creatine Kinase 64 Creatine Kinase 18.3 Index Creatinine Kinase 11.70 H MB (Mass) Troponin I 1.400 *H B-Type Natriuretic 7210 H Peptide Total Protein 5.5 L Albumin 2.8 L Globulin 2.70 Albumin/Globulin 1.03 Ratio Triglycerides 64 Level Cholesterol Level 81 L LDL Cholesterol, 39 Calculated HDL Cholesterol 29 L Cholesterol/HDL 2.7 Ratio Medications Medications Current Medications Ondansetron HCl (Zofran Inj) 4 mg ER BRIDGE PRN IV NAUSEA/VOMITING; Start 11/26/18 at 00:00; Stop 11/26/18 at 23:59 Acetaminophen (Tylenol Tab) 650 mg ER BRIDGE PRN PO .MILD PAIN 1-3 OR TEMP; Start 11/26/18 at 00:00; Stop 11/26/18 at 23:59 IV Flush (NS 3 ml) 3 ml PER PROTOCOL IV ; Start 11/26/18 at 00:00 Ondansetron HCl (Zofran Inj) 4 mg Q6H PRN IV NAUSEA/VOMITING; Start 11/26/18 at 00:00 Acetaminophen (Tylenol Tab) 650 mg Q6H PRN PO .PAIN 1-3 OR TEMP; Start 11/26/18 at 00:00 Docusate Sodium (Colace) 100 mg Q12H PRN PO .CONSTIPATION; Start 11/26/18 at 00:00 Bisacodyl (Dulcolax) 5 mg DAILY PRN PO .CONSTIPATION; Start 11/26/18 at 00:00 Aztreonam 50 ml @ 100 mls/hr Q12H IVPB Last administered on 11/26/18at 03:42; Admin Dose 100 MLS/HR; Start 11/26/18 at 04:00 Furosemide (Lasix) 20 mg BID DIURETICS IV ; Start 11/26/18 at 10:30 ISELA WORTHINGTON Nov 26, 2018 11:46
[2018-11-26] MEDS ORDERED: IOHEXOL 14.3 MG(I)/ML (ADULT) BTL PO ONE (12:00)
[2018-11-26] MEDS ORDERED: VANCOMYCIN IV PER PHARMACY XX SCH (12:00)
[2018-11-26] MEDS ORDERED: IOHEXOL 300MG/ML 150 ML BTL ONE (12:14)
[2018-11-26] MEDS ORDERED: SOD CHLORIDE 0.9% 100 ML ONE (12:14)
[2018-11-26] MEDS: VANCOMYCIN 1 GM 250 ML IVPB SCH (13:27)
[2018-11-26] MEDS ORDERED: MIDAZOLAM 1 MG/ML 2 ML INJ ONE (15:16)
[2018-11-26] MEDS ORDERED: FENTAnyl 50 MCG/ML VIAL ONE (15:16)
[2018-11-26] MEDS ORDERED: LIDOCAINE 1% (MDV) 20 ML INJ ONE (15:17)
--- NOTE | 2018-11-26 17:25 | HPN ---
Date/Time of Note Date/Time of Note DATE: 11/26/18 TIME: 17:25 Interval H&P Admission Note Pt. seen H&P reviewed: No system changes ERIS THAO MD Nov 26, 2018 17:25
--- NOTE | 2018-11-26 18:03 | CONS ---
DATE OF ADMISSION: 11/25/2018 DATE OF CONSULTATION: 11/26/2018 TYPE OF CONSULTATION: Infectious disease. REASON FOR CONSULTATION: Antibiotic management. HISTORY OF PRESENT ILLNESS: Eladia Ayala is an 88-year-old female who was brought in from a [facility] and care for hypertension and low oxygen saturation. Her oxygen saturation was in the 90s. She wa s altered and unable to answer questions. PAST PROBLEMS INCLUDE: 1. Alzheimer disease. 2. Coronary artery disease with congestive failure. 3. Atrial fibrillation. 4. Hypotension. FAMILY HISTORY: Noncontributory. SOCIAL HISTORY: She does not smoke, drink or abuse drugs. ALLERGIES: NONE TO PENICILLIN, SULFA OR FOODS. MEDICATIONS: Per chart. REVIEW OF SYSTEMS: As per HPI. PHYSICAL EXAMINATION: GENERAL: The patient is an elderly, appearing female who is awake, responsive, in no acute distress, somewhat disheveled. VITAL SIGNS: Stable. She is afebrile. SKIN: Without generalized rash. HEENT: Within normal limits. NECK: Supple. LYMPH NODES: None palpable. CHEST: Decreased breath sounds at the bases. HEART: Without murmur or gallop. ABDOMEN: Soft, nontender, without organosplenomegaly or masses. EXTREMITIES: Without cyanosis, clubbing, or edema. RECTAL AND GENITAL: Deferred. NEUROLOGIC: No focal neurological abnormality. ANCILLARY LABORATORY DATA: White count is 7.9, H and H of 12 and 36.7, platelet count 53,000. BUN a nd creatinine 39/0.72, glucose of 169 random. Urinalysis shows trace leukocyte esterase, 15 white ce lls per high-power field. The patient was started on vancomycin and cefepime. The patient had blood cultures drawn. Her chest x-ray showed left greater than right pleural effusion with associated basilar atelectasis versus inf iltrates. DVT study was negative. Chest x-ray on the 7th: Mild cardiomegaly. Moderate left and rig ht bilateral basilar pleural effusions. Benign chronic changes elsewhere throughout the body. CT sc an of the abdomen and pelvis shows distended gallbladder with pericholecystic fluid or gallbladder wa ll edema; no visualized stones; bilateral pleural effusions, right greater than left; left lower lobe basilar collapse with dependent atelectasis, right lower lobe; multiple splenic infarcts; left upper quadrant varices; rule out portal hypertension; senescent and degenerative changes; vascular calcifi cations; small volume ascites and anasarca. Abdominal ultrasound: Large gallstone and gallbladder w all thickening suggesting acute cholecystitis. The patient was seen today by Dr. Hawthorne. The patie nt had mild tachypnea, grade II/ systolic ejection murmur. Abdomen is soft, with mild tenderness. She was found to have bacteremia. Her urine actually has group B strep, and her blood cultures are also positive for gram-positive cocci in clusters, so she has UTI with sepsis. She is on vancomycin and aztreonam. FAR I KNOW, THERE ARE NO ALLERGIES TO PENICILLIN. The patient was seen by Dr. Michael coats who noted she had an NSTEMI in the setting of severe aortic stenosis, possibly underlying c oronary artery disease. This could all be related to a UTI with sepsis. She could also have need fo r cholecystectomy. If indicated, will consider cholecystostomy since she is quite ill at this point. She has dementia and gram-positive cocci in her blood. I am going to change her aztreonam to cefep [place] 1 gm q.12, ____ to Rocephin 2 gm q.24. I will dictate my findings to the hospitalists and Dr. Valente siegel.. Dictated By: DAVE HOLLOWAY MD, JD/SHREYAS Conf#: [id number] DID#: [id number] CC: JOE MUNOZ MD;*EndCC*
[2018-11-26] MEDS: CEFEPIME 1GM/50 ML (PMX) 50 ML IVPB SCH (20:31)
[2018-11-26] MEDS: ATORVASTATIN 20 MG TAB PO SCH (20:31)
[2018-11-27] VITALS (10 sets, daily range): BP systolic 125–139; BP diastolic 62–73; PULSE 56–94; RESP 18–70
[2018-11-27] MEDS: FUROSEMIDE 20 MG INJ IV SCH ×2 (06:08→17:11)
[2018-11-27] MEDS: ASPIRIN 81 MG TAB PO SCH (08:41)
--- NOTE | 2018-11-27 11:19 | CONS ---
Assessment/Plan Assessment/Plan Hospital Course (Demo Recall) NSTEMI: still likely type II in setting of severe , possible underlying CAD, sepsis, and CHF. She was also reportedly hypotensive at the board and care. Peak trop 1.8. No symptoms and no EKG changes. She may be a cath candidate if her mentation improves and she is thought to be a TAVR candidate. Severe : low-flow low-gradient. Acute on ?chronic systolic heart failure: EF 30%. Now decompensated after IVF. Improving with diuresis Strep bacteremia Sepsis Acute cholecystitis: s/p cholecystostomy tube 11/26/18 Dementia Incomplete data -ASA 81mg -lipitor 20mg -no BB with bradycardia -lasix 20mg IV BID -antibiotics Ok for transfer to [place] from my perspective Consultation Date/Type/Reason Admit Date/Time Nov 25, 2018 at 23:49 Initial Consult Date 11/26/18 Type of Consult Cardiology Requesting Provider: JOE MUNOZ Date/Time of Note DATE: 11/27/18 TIME: 11:16 24 HR Interval Summary Free Text/Dictation s/p cholecystostomy tube yesterday. More alert today but still confused at times. Strep bacteremia. Diuresing well. Exam/Review of Systems Vital Signs Vitals Vital Signs Date Temp Pulse Resp B/P (MAP) Pulse Ox O2 O2 Flow FiO2 Time Delivery Rate 11/27/18 63 08:01 11/27/18 98.0 18 128/63 98 07:52 (84) 11/26/18 Nasal 2.0 20:30 Cannula Intake and Output 11/26/18 11/26/18 11/27/18 1515:00 23:00 07:00 IntakeIntake Total 250 ml 350 ml OutputOutput Total 700 ml 1270 ml BalanceBalance -450 ml -920 ml Exam Constitutional: alert; No oriented Psych: no complaints, nl mood/affect Neck: jvd (9cm) Respiratory: crackles/rales; No clear to auscultation Cardiovascular: regular rate and rhythm, edema (1+), systolic murmur (3/6 late peaking KWAME) Gastrointestinal: soft, non-tender, other (cholecystostomy tube in place ); No distended Musculoskeletal: No nl extremities to inspection Neurological: nl mental status, nl speech Labs Result Diagram: 11/27/1852811/27/18528 Results 24hrs Laboratory Tests Test 11/26/18 18:48 11/27/18 05:29 Creatine Kinase 54 Creatine Kinase Index 25.7 Creatinine Kinase MB (Mass) 13.90 H Troponin I 1.820 *H White Blood Count 10.0 Red Blood Count 4.09 L Hemoglobin 12.7 Hematocrit 37.9 Mean Corpuscular Volume 92.7 Mean Corpuscular Hemoglobin 31.1 Mean Corpuscular Hemoglobin Concent 33.5 Red Cell Distribution Width 15.7 H Platelet Count 34 L Mean Platelet Volume Immature Granulocytes % 0.600 H Neutrophils % 81.3 H Lymphocytes % 7.7 L Monocytes % 9.5 Eosinophils % 0.6 Basophils % 0.3 Nucleated Red Blood Cells % 0.0 Immature Granulocytes # 0.060 H Neutrophils # 8.1 H Lymphocytes # 0.8 Monocytes # 1.0 H Eosinophils # 0.1 Basophils # 0.0 Nucleated Red Blood Cells # 0.0 Sodium Level 141 Potassium Level 3.8 Chloride Level 112 H Carbon Dioxide Level 22 Anion Gap 7 Blood Urea Nitrogen 38 H Creatinine 0.62 Est Glomerular Filtrat Rate mL/min Glucose Level 83 Calcium Level 9.1 Total Bilirubin 1.1 Direct Bilirubin 0.00 Indirect Bilirubin 1.1 Aspartate Amino Transf (AST/SGOT) 61 H Alanine Aminotransferase (ALT/SGPT) 50 Alkaline Phosphatase 102 Total Protein 4.8 L Albumin 2.3 L Globulin 2.50 Albumin/Globulin Ratio 0.92 Medications Medications Current Medications IV Flush (NS 3 ml) 3 ml PER PROTOCOL IV ; Start 11/26/18 at 00:00 Ondansetron HCl (Zofran Inj) 4 mg Q6H PRN IV NAUSEA/VOMITING; Start 11/26/18 at 00:00 Acetaminophen (Tylenol Tab) 650 mg Q6H PRN PO .PAIN 1-3 OR TEMP; Start 11/26/18 at 00:00 Docusate Sodium (Colace) 100 mg Q12H PRN PO .CONSTIPATION; Start 11/26/18 at 00:00 Bisacodyl (Dulcolax) 5 mg DAILY PRN PO .CONSTIPATION; Start 11/26/18 at 00:00 Furosemide (Lasix) 20 mg BID DIURETICS IV Last administered on 11/27/18at 06:08; Admin Dose 20 MG; Start 11/26/18 at 10:30 Aspirin (Aspirin) 81 mg DAILY PO Last administered on 11/27/18 08:41; Admin Dose 81 MG; Start 11/27/18 at 09:00 Atorvastatin Calcium (Lipitor) 20 mg HS PO Last administered on 11/26/18at 20:31; Admin Dose 20 MG; Start 11/26/18 at 21:00 Vancomycin HCl (Vanco Iv Per Pharmacy) VANCOMYCIN PER PHARMACY PER PROTOCOL XX ; Start 11/26/18 at 12:00 Vancomycin HCl 250 ml @ 125 mls/hr Q24H IVPB Last administered on 11/26/18at 13:27; Admin Dose 125 MLS/HR; Start 11/26/18 at 14:00 Cefepime HCl 50 ml @ 100 mls/hr Q24H IVPB Last administered on 11/26/18at 20:31; Admin Dose 100 MLS/HR; Start 11/26/18 at 21:00 ISELA WORTHINGTON Nov 27, 2018 11:19
[2018-11-27] MEDS: VANCOMYCIN 1 GM 250 ML IVPB SCH (13:11)
--- NOTE | 2018-11-27 14:26 | PN ---
Date/Time of Note Date/Time of Note DATE: 11/27/18 TIME: 14:24 Assessment/Plan VTE Prophylaxis Risk score (from Nsg)>0 risk: 9 Pharmacological prophylaxis: NA/contraindicated Pharm contraindication: surgical contra Lines/Catheters IV Catheter Type (from Nrsg): Saline Lock Assessment/Plan Hospital Course 88 yo female with dementia who presented with respiratory distress and hypotension. Found to have systolic CHF, , bacteremia and possible cholecystitis Acute systolic CHF with causing b/l pleural effusions and respiratory failure: - Cautious diuresis initiated bacteremia with possible cholecystitis - Continue vanco/aztreonema - Await BC speciation -Status post cholecystostomy -ID following Dementia: - Stable NSTEMI: Type II -Cardiology consultation appreciated DNR per family DC planning: Await culture specifics, anticipate DC back to facility in the next 1-2 days Result Diagram: 11/27/18 0529 11/27/1829 Results 24hrs Laboratory Tests Test 11/26/18 18:48 11/27/18 05:29 Creatine Kinase 54 Creatine Kinase Index 25.7 Creatinine Kinase MB (Mass) 13.90 H Troponin I 1.820 *H White Blood Count 10.0 Red Blood Count 4.09 L Hemoglobin 12.7 Hematocrit 37.9 Mean Corpuscular Volume 92.7 Mean Corpuscular Hemoglobin 31.1 Mean Corpuscular Hemoglobin Concent 33.5 Red Cell Distribution Width 15.7 H Platelet Count 34 L Mean Platelet Volume Immature Granulocytes % 0.600 H Neutrophils % 81.3 H Lymphocytes % 7.7 L Monocytes % 9.5 Eosinophils % 0.6 Basophils % 0.3 Nucleated Red Blood Cells % 0.0 Immature Granulocytes # 0.060 H Neutrophils # 8.1 H Lymphocytes # 0.8 Monocytes # 1.0 H Eosinophils # 0.1 Basophils # 0.0 Nucleated Red Blood Cells # 0.0 Sodium Level 141 Potassium Level 3.8 Chloride Level 112 H Carbon Dioxide Level 22 Anion Gap 7 Blood Urea Nitrogen 38 H Creatinine 0.62 Est Glomerular Filtrat Rate mL/min Glucose Level 83 Calcium Level 9.1 Total Bilirubin 1.1 Direct Bilirubin 0.00 Indirect Bilirubin 1.1 Aspartate Amino Transf (AST/SGOT) 61 H Alanine Aminotransferase (ALT/SGPT) 50 Alkaline Phosphatase 102 Total Protein 4.8 L Albumin 2.3 L Globulin 2.50 Albumin/Globulin Ratio 0.92 Subjective 24 Hr Interval Summary Constitutional: disoriented Exam/Review of Systems Exam Vitals Vital Signs Date Temp Pulse Resp B/P (MAP) Pulse Ox O2 O2 Flow FiO2 Time Delivery Rate 11/27/18 63 12:01 11/27/18 98.2 70 131/70 98 11:55 (90) 11/27/18 Nasal 2.0 08:00 Cannula Intake and Output 11/26/18 11/26/18 11/27/18 1515:00 23:00 07:00 IntakeIntake Total 250 ml 350 ml OutputOutput Total 700 ml 1270 ml BalanceBalance -450 ml -920 ml Psych: confusion Respiratory: clear to auscultation Cardiovascular: regular rate and rhythm Gastrointestinal: soft; No distended Musculoskeletal: nl extremities to inspection Results Results 24hrs Laboratory Tests Test 11/26/18 18:48 11/27/18 05:29 Creatine Kinase 54 Creatine Kinase Index 25.7 Creatinine Kinase MB (Mass) 13.90 H Troponin I 1.820 *H White Blood Count 10.0 Red Blood Count 4.09 L Hemoglobin 12.7 Hematocrit 37.9 Mean Corpuscular Volume 92.7 Mean Corpuscular Hemoglobin 31.1 Mean Corpuscular Hemoglobin Concent 33.5 Red Cell Distribution Width 15.7 H Platelet Count 34 L Mean Platelet Volume Immature Granulocytes % 0.600 H Neutrophils % 81.3 H Lymphocytes % 7.7 L Monocytes % 9.5 Eosinophils % 0.6 Basophils % 0.3 Nucleated Red Blood Cells % 0.0 Immature Granulocytes # 0.060 H Neutrophils # 8.1 H Lymphocytes # 0.8 Monocytes # 1.0 H Eosinophils # 0.1 Basophils # 0.0 Nucleated Red Blood Cells # 0.0 Sodium Level 141 Potassium Level 3.8 Chloride Level 112 H Carbon Dioxide Level 22 Anion Gap 7 Blood Urea Nitrogen 38 H Creatinine 0.62 Est Glomerular Filtrat Rate mL/min Glucose Level 83 Calcium Level 9.1 Total Bilirubin 1.1 Direct Bilirubin 0.00 Indirect Bilirubin 1.1 Aspartate Amino Transf (AST/SGOT) 61 H Alanine Aminotransferase (ALT/SGPT) 50 Alkaline Phosphatase 102 Total Protein 4.8 L Albumin 2.3 L Globulin 2.50 Albumin/Globulin Ratio 0.92 Medications Medication Current Medications IV Flush (NS 3 ml) 3 ml PER PROTOCOL IV ; Start 11/26/18 at 00:00 Ondansetron HCl (Zofran Inj) 4 mg Q6H PRN IV NAUSEA/VOMITING; Start 11/26/18 at 00:00 Acetaminophen (Tylenol Tab) 650 mg Q6H PRN PO .PAIN 1-3 OR TEMP; Start 11/26/18 at 00:00 Docusate Sodium (Colace) 100 mg Q12H PRN PO .CONSTIPATION; Start 11/26/18 at 00:00 Bisacodyl (Dulcolax) 5 mg DAILY PRN PO .CONSTIPATION; Start 11/26/18 at 00:00 Furosemide (Lasix) 20 mg BID DIURETICS IV Last administered on 11/27/18 06:08; Admin Dose 20 MG; Start 11/26/18 at 10:30 Aspirin (Aspirin) 81 mg DAILY PO Last administered on 11/27/18at 08:41; Admin Dose 81 MG; Start 11/27/18 at 09:00 Atorvastatin Calcium (Lipitor) 20 mg HS PO Last administered on 11/26/18at 20:31; Admin Dose 20 MG; Start 11/26/18 at 21:00 Vancomycin HCl (Vanco Iv Per Pharmacy) VANCOMYCIN PER PHARMACY PER PROTOCOL XX ; Start 11/26/18 at 12:00 Vancomycin HCl 250 ml @ 125 mls/hr Q24H IVPB Last administered on 11/27/18at 13:11; Admin Dose 125 MLS/HR; Start 11/26/18 at 14:00 Cefepime HCl 50 ml @ 100 mls/hr Q24H IVPB Last administered on 11/26/18at 20:31; Admin Dose 100 MLS/HR; Start 11/26/18 at 21:00 SHAY SANTILLAN Nov 27, 2018 14:26
--- NOTE | 2018-11-27 14:50 | CONS ---
Assessment/Plan Assessment/Plan Hospital Course (Demo Recall) Patient is awake lying comfortably in bed no fevers overnight. WBC today 10 with neutrophils 81.3 BUN 38 creatinine 0.62 Blood cultures since admission grew gram-positive cocci in chains urine culture growing strep agalactiae Antimicrobials: Cefepime, vancomycin Indwelling: Right upper quadrant pigtail, Cabrera catheter Chest x-ray yesterday revealed mild cardiomegaly with volume overload Physical examination: Fragile well-developed elderly woman who is alert in no distress. Head atraumatic normocephalic sclera nonicteric. Neck is supple chest rise symmetrical breath sounds diminished bases. Heart: S1-S2. Abdomen soft bowel sounds present extremities without cyanosis Assessment: 1. Sepsis, present on admission 2. Bacteremia 3. Urinary tract infection 4. Cholecystitis, status post CT-guided cholecystostomy catheter placement 5. Non-ST elevation [place] Plan: Patient is stable, on appropriate antibiotic regimen, 2D echo on admission revealed no vegetations, will repeat blood cultures Consultation Date/Type/Reason Admit Date/Time Nov 25, 2018 at 23:49 Initial Consult Date 11/26/18 Type of Consult id Requesting Provider: JOE MUNOZ Date/Time of Note DATE: 11/27/18 TIME: 14:49 Exam/Review of Systems Exam Vitals Vital Signs Date Temp Pulse Resp B/P (MAP) Pulse Ox O2 O2 Flow FiO2 Time Delivery Rate 11/27/18 63 12:01 11/27/18 98.2 70 131/70 98 11:55 (90) 11/27/18 Nasal 2.0 08:00 Cannula Intake and Output 11/26/18 11/26/18 11/27/18 1515:00 23:00 07:00 IntakeIntake Total 250 ml 350 ml OutputOutput Total 700 ml 1270 ml BalanceBalance -450 ml -920 ml Results Result Diagram: 11/27/18 0529 11/27/18 0529 Results 24hrs Laboratory Tests Test 11/26/18 18:48 11/27/18 05:29 Creatine Kinase 54 Creatine Kinase Index 25.7 Creatinine Kinase MB (Mass) 13.90 H Troponin I 1.820 *H White Blood Count 10.0 Red Blood Count 4.09 L Hemoglobin 12.7 Hematocrit 37.9 Mean Corpuscular Volume 92.7 Mean Corpuscular Hemoglobin 31.1 Mean Corpuscular Hemoglobin Concent 33.5 Red Cell Distribution Width 15.7 H Platelet Count 34 L Mean Platelet Volume Immature Granulocytes % 0.600 H Neutrophils % 81.3 H Lymphocytes % 7.7 L Monocytes % 9.5 Eosinophils % 0.6 Basophils % 0.3 Nucleated Red Blood Cells % 0.0 Immature Granulocytes # 0.060 H Neutrophils # 8.1 H Lymphocytes # 0.8 Monocytes # 1.0 H Eosinophils # 0.1 Basophils # 0.0 Nucleated Red Blood Cells # 0.0 Sodium Level 141 Potassium Level 3.8 Chloride Level 112 H Carbon Dioxide Level 22 Anion Gap 7 Blood Urea Nitrogen 38 H Creatinine 0.62 Est Glomerular Filtrat Rate mL/min Glucose Level 83 Calcium Level 9.1 Total Bilirubin 1.1 Direct Bilirubin 0.00 Indirect Bilirubin 1.1 Aspartate Amino Transf (AST/SGOT) 61 H Alanine Aminotransferase (ALT/SGPT) 50 Alkaline Phosphatase 102 Total Protein 4.8 L Albumin 2.3 L Globulin 2.50 Albumin/Globulin Ratio 0.92 Medications Medication Current Medications IV Flush (NS 3 ml) 3 ml PER PROTOCOL IV ; Start 11/26/18 at 00:00 Ondansetron HCl (Zofran Inj) 4 mg Q6H PRN IV NAUSEA/VOMITING; Start 11/26/18 at 00:00 Acetaminophen (Tylenol Tab) 650 mg Q6H PRN PO .PAIN 1-3 OR TEMP; Start 11/26/18 at 00:00 Docusate Sodium (Colace) 100 mg Q12H PRN PO .CONSTIPATION; Start 11/26/18 at 00:00 Bisacodyl (Dulcolax) 5 mg DAILY PRN PO .CONSTIPATION; Start 11/26/18 at 00:00 Furosemide (Lasix) 20 mg BID DIURETICS IV Last administered on 11/27/18at 06:08; Admin Dose 20 MG; Start 11/26/18 at 10:30 Aspirin (Aspirin) 81 mg DAILY PO Last administered on 11/27/18at 08:41; Admin Dose 81 MG; Start 11/27/18 at 09:00 Atorvastatin Calcium (Lipitor) 20 mg HS PO Last administered on 11/26/18at 20:31; Admin Dose 20 MG; Start 11/26/18 at 21:00 Vancomycin HCl (Vanco Iv Per Pharmacy) VANCOMYCIN PER PHARMACY PER PROTOCOL XX ; Start 11/26/18 at 12:00 Vancomycin HCl 250 ml @ 125 mls/hr Q24H IVPB Last administered on 11/27/18at 13:11; Admin Dose 125 MLS/HR; Start 11/26/18 at 14:00 Cefepime HCl 50 ml @ 100 mls/hr Q24H IVPB Last administered on 11/26/18at 20:31; Admin Dose 100 MLS/HR; Start 11/26/18 at 21:00 DAYAN DENT [employer] Nov 27, 2018 14:50
[2018-11-27] MEDS: ACETAMINOPHEN 325 MG TAB PO PRN (21:44)
[2018-11-27] MEDS: CEFEPIME 1GM/50 ML (PMX) 50 ML IVPB SCH (21:44)
[2018-11-27] MEDS: ATORVASTATIN 20 MG TAB PO SCH (21:44)
[2018-11-28] VITALS (9 sets, daily range): BP systolic 119–131; BP diastolic 61–70; PULSE 56–82; RESP 18
[2018-11-28] MEDS: FUROSEMIDE 20 MG INJ IV SCH (06:17)
[2018-11-28] MEDS: ASPIRIN 81 MG TAB PO SCH (09:23)
[2018-11-28] MEDS: BISACODYL (EC) 5 MG TAB PO PRN (09:25)
[2018-11-28] MEDS: ACETAMINOPHEN 325 MG TAB PO PRN (10:45)
--- NOTE | 2018-11-28 14:11 | PN ---
Date/Time of Note Date/Time of Note DATE: 11/28/18 TIME: 14:09 Assessment/Plan VTE Prophylaxis Risk score (from Nsg)>0 risk: 8 Pharmacological prophylaxis: NA/contraindicated Pharm contraindication: surgical contra Lines/Catheters IV Catheter Type (from Nrsg): Saline Lock Assessment/Plan Hospital Course 88 yo female with dementia who presented with respiratory distress and hypotension. Found to have systolic CHF, , bacteremia and possible cholecystitis Acute systolic CHF with causing b/l pleural effusions and respiratory failure: - Cautious diuresis initiated bacteremia with possible cholecystitis - Continue vancomycin and cefepime -Blood cultures show group B strep, gallbladder fluid culture also is consistent with group B strep -Follow-up on repeat blood cultures -Status post cholecystostomy -ID following Dementia: - Stable, resides in a fpc NSTEMI: Type II -Cardiology consultation appreciated DNR per family DC planning: Follow-up on repeat blood cultures, anticipate DC in 1-2 days back to fpc Result Diagram: 11/27/1829 11/27/18528 Subjective 24 Hr Interval Summary Constitutional: disoriented Exam/Review of Systems Exam Vitals Vital Signs Date Temp Pulse Resp B/P (MAP) Pulse Ox O2 O2 Flow FiO2 Time Delivery Rate 11/28/18 98.0 78 18 131/70 98 12:01 (90) 11/28/18 Nasal 2.0 08:45 Cannula Intake and Output 11/27/18 11/27/18 11/28/18 1515:00 23:00 07:00 IntakeIntake Total 1000 ml 100 ml OutputOutput Total 1300 ml 720 ml BalanceBalance -300 ml -620 ml Psych: confusion Respiratory: clear to auscultation Cardiovascular: regular rate and rhythm Gastrointestinal: soft; No distended Musculoskeletal: nl extremities to inspection Medications Medication Current Medications IV Flush (NS 3 ml) 3 ml PER PROTOCOL IV ; Start 11/26/18 at 00:00 Ondansetron HCl (Zofran Inj) 4 mg Q6H PRN IV NAUSEA/VOMITING; Start 11/26/18 at 00:00 Acetaminophen (Tylenol Tab) 650 mg Q6H PRN PO .PAIN 1-3 OR TEMP Last administered on 11/28/18at 10:45; Admin Dose 650 MG; Start 11/26/18 at 00:00 Docusate Sodium (Colace) 100 mg Q12H PRN PO .CONSTIPATION; Start 11/26/18 at 00:00 Bisacodyl (Dulcolax) 5 mg DAILY PRN PO .CONSTIPATION Last administered on 11/28/18 09:25; Admin Dose 5 MG; Start 11/26/18 at 00:00 Furosemide (Lasix) 20 mg BID DIURETICS IV Last administered on 11/28/18 06:17; Admin Dose 20 MG; Start 11/26/18 at 10:30 Aspirin (Aspirin) 81 mg DAILY PO Last administered on 11/28/18 09:23; Admin Dose 81 MG; Start 11/27/18 at 09:00 Atorvastatin Calcium (Lipitor) 20 mg HS PO Last administered on 11/27/18 21:44; Admin Dose 20 MG; Start 11/26/18 at 21:00 Vancomycin HCl (Vanco Iv Per Pharmacy) VANCOMYCIN PER PHARMACY PER PROTOCOL XX ; Start 11/26/18 at 12:00 Vancomycin HCl 250 ml @ 125 mls/hr Q24H IVPB Last administered on 11/27/18at 13:11; Admin Dose 125 MLS/HR; Start 11/26/18 at 14:00 Cefepime HCl 50 ml @ 100 mls/hr Q24H IVPB Last administered on 11/27/18 21:44; Admin Dose 100 MLS/HR; Start 11/26/18 at 21:00 Collagenase (Santyl) 1 applic DAILY TOP ; Start 11/28/18 at 09:00 SHAY SANTILLAN Nov 28, 2018 14:11
[2018-11-28] MEDS: COLLAGENASE 5 GM (UD JAR) TOP SCH (14:37)
[2018-11-28] MEDS: VANCOMYCIN 1 GM 250 ML IVPB SCH (14:38)
--- NOTE | 2018-11-28 16:43 | CONS ---
Assessment/Plan Assessment/Plan Hospital Course (Demo Recall) Patient is alert denies pain looks comfortable no fevers overnight. No labs this morning. Blood culture on admission grew strep agalactiae gallbladder fluid culture also growing strep agalactiae, repeat blood cultures negative Antimicrobials: Cefepime, vancomycin Indwelling: Right upper quadrant pigtail, Cabrera catheter Chest x-ray 11/26/18 revealed mild cardiomegaly with volume overload Physical examination: Fragile well-developed elderly woman who is alert in no distress. Head atraumatic normocephalic sclera nonicteric. Neck is supple chest rise symmetrical breath sounds diminished bases. Heart: S1-S2. Abdomen soft bowel sounds present extremities without cyanosis Assessment: 1. Sepsis, present on admission 2. Strep bacteremia 3. Strep urinary tract infection 4. Cholecystitis, status post CT-guided cholecystostomy catheter placement 5. Non-ST elevation [place] Plan: Patient is doing better, 2D echo on admission revealed no vegetations, repeat blood cultures negative, continue cefepime, discontinue Vanco Consultation Date/Type/Reason Admit Date/Time Nov 25, 2018 at 23:49 Initial Consult Date 11/26/18 Type of Consult id Requesting Provider: JOE MUNOZ Date/Time of Note DATE: 11/28/18 TIME: 16:41 Exam/Review of Systems Exam Vitals Vital Signs Date Temp Pulse Resp B/P (MAP) Pulse Ox O2 O2 Flow FiO2 Time Delivery Rate 11/28/18 66 16:01 11/28/18 98.0 18 129/68 98 15:58 (88) 11/28/18 Nasal 2.0 08:45 Cannula Intake and Output 11/27/18 11/27/18 11/28/18 1515:00 23:00 07:00 IntakeIntake Total 1000 ml 100 ml OutputOutput Total 1300 ml 720 ml BalanceBalance -300 ml -620 ml Results Result Diagram: 11/27/18 0529 11/27/18 0529 Medications Medication Current Medications IV Flush (NS 3 ml) 3 ml PER PROTOCOL IV ; Start 11/26/18 at 00:00 Ondansetron HCl (Zofran Inj) 4 mg Q6H PRN IV NAUSEA/VOMITING; Start 11/26/18 at 00:00 Acetaminophen (Tylenol Tab) 650 mg Q6H PRN PO .PAIN 1-3 OR TEMP Last administered on 11/28/18 10:45; Admin Dose 650 MG; Start 11/26/18 at 00:00 Docusate Sodium (Colace) 100 mg Q12H PRN PO .CONSTIPATION; Start 11/26/18 at 00:00 Bisacodyl (Dulcolax) 5 mg DAILY PRN PO .CONSTIPATION Last administered on 11/28/18 09:25; Admin Dose 5 MG; Start 11/26/18 at 00:00 Furosemide (Lasix) 20 mg BID DIURETICS IV Last administered on 11/28/18 06:17; Admin Dose 20 MG; Start 11/26/18 at 10:30 Aspirin (Aspirin) 81 mg DAILY PO Last administered on 11/28/18 09:23; Admin Dose 81 MG; Start 11/27/18 at 09:00 Atorvastatin Calcium (Lipitor) 20 mg HS PO Last administered on 11/27/18 21:44; Admin Dose 20 MG; Start 11/26/18 at 21:00 Vancomycin HCl (Vanco Iv Per Pharmacy) VANCOMYCIN PER PHARMACY PER PROTOCOL XX ; Start 11/26/18 at 12:00 Vancomycin HCl 250 ml @ 125 mls/hr Q24H IVPB Last administered on 11/28/18 14:38; Admin Dose 125 MLS/HR; Start 11/26/18 at 14:00 Cefepime HCl 50 ml @ 100 mls/hr Q24H IVPB Last administered on 11/27/18 21:44; Admin Dose 100 MLS/HR; Start 11/26/18 at 21:00 Collagenase (Santyl) 1 applic DAILY TOP Last administered on 11/28/18 14:37; Admin Dose 1 APPLIC; Start 11/28/18 at 09:00 Miscellaneous Information (*Rx Drug Level Order Reminder*) VANCO TROUGH @ 1,300 ON... 1300 ONCE XX ; Start 11/29/18 at 13:00; Stop 11/29/18 at 13:01 DAYAN DENT NP Nov 28, 2018 16:43
--- NOTE | 2018-11-28 18:04 | CONS ---
Assessment/Plan Assessment/Plan Hospital Course (Demo Recall) NSTEMI: still likely type II in setting of severe , possible underlying CAD, sepsis, and CHF. She was also reportedly hypotensive at the board and care. Peak trop 1.8. No symptoms and no EKG changes. She may be a cath candidate if she is thought to be a TAVR candidate at some point which I dont think she is at this time Severe : low-flow low-gradient. Acute on ?chronic systolic heart failure: EF 30%. Now decompensated after IVF. Euvolemic now Strep bacteremia Sepsis Acute cholecystitis: s/p cholecystostomy tube 11/26/18 Dementia Incomplete data -ASA 81mg -lipitor 20mg -no BB with bradycardia -change to lasix 20mg PO daily -antibiotics Consultation Date/Type/Reason Admit Date/Time Nov 25, 2018 at 23:49 Initial Consult Date 11/26/18 Type of Consult Cardiology Requesting Provider: JOE MUNOZ Date/Time of Note DATE: 11/28/18 TIME: 18:01 24 HR Interval Summary Free Text/Dictation No events. She notes that she is completely non ambulatory. Exam/Review of Systems Vital Signs Vitals Vital Signs Date Temp Pulse Resp B/P (MAP) Pulse Ox O2 O2 Flow FiO2 Time Delivery Rate 11/28/18 66 16:01 11/28/18 98.0 18 129/68 98 15:58 (88) 11/28/18 Nasal 2.0 08:45 Cannula Intake and Output 11/27/18 11/27/18 11/28/18 1515:00 23:00 07:00 IntakeIntake Total 1000 ml 100 ml OutputOutput Total 1300 ml 720 ml BalanceBalance -300 ml -620 ml Exam Constitutional: alert; No oriented Psych: no complaints, nl mood/affect Head: normocephalic, atraumatic Neck: supple; No jvd Cardiovascular: regular rate and rhythm; No edema Gastrointestinal: soft; No non-tender, No distended Neurological: nl mental status, nl speech Labs Result Diagram: 11/27/1829 11/27/18528 Medications Medications Current Medications IV Flush (NS 3 ml) 3 ml PER PROTOCOL IV ; Start 11/26/18 at 00:00 Ondansetron HCl (Zofran Inj) 4 mg Q6H PRN IV NAUSEA/VOMITING; Start 11/26/18 at 00:00 Acetaminophen (Tylenol Tab) 650 mg Q6H PRN PO .PAIN 1-3 OR TEMP Last administered on 11/28/18 10:45; Admin Dose 650 MG; Start 11/26/18 at 00:00 Docusate Sodium (Colace) 100 mg Q12H PRN PO .CONSTIPATION; Start 11/26/18 at 00:00 Bisacodyl (Dulcolax) 5 mg DAILY PRN PO .CONSTIPATION Last administered on 11/28/18 09:25; Admin Dose 5 MG; Start 11/26/18 at 00:00 Furosemide (Lasix) 20 mg BID DIURETICS IV Last administered on 11/28/18 06:17; Admin Dose 20 MG; Start 11/26/18 at 10:30 Aspirin (Aspirin) 81 mg DAILY PO Last administered on 11/28/18 09:23; Admin Dose 81 MG; Start 11/27/18 at 09:00 Atorvastatin Calcium (Lipitor) 20 mg HS PO Last administered on 11/27/18 21:44; Admin Dose 20 MG; Start 11/26/18 at 21:00 Cefepime HCl 50 ml @ 100 mls/hr Q24H IVPB Last administered on 11/27/18 21:44; Admin Dose 100 MLS/HR; Start 11/26/18 at 21:00 Collagenase (Santyl) 1 applic DAILY TOP Last administered on 11/28/18 14:37; Admin Dose 1 APPLIC; Start 11/28/18 at 09:00 ISELA WORTHINGTON Nov 28, 2018 18:04
[2018-11-28] MEDS: CEFEPIME 1GM/50 ML (PMX) 50 ML IVPB SCH (22:56)
[2018-11-28] MEDS: ATORVASTATIN 20 MG TAB PO SCH (22:57)
[2018-11-29] VITALS (10 sets, daily range): BP systolic 120–134; BP diastolic 56–72; PULSE 57–70; RESP 18
[2018-11-29] MEDS: FUROSEMIDE 20 MG TAB PO SCH (08:34)
[2018-11-29] MEDS: COLLAGENASE 5 GM (UD JAR) TOP SCH (08:34)
[2018-11-29] MEDS: ASPIRIN 81 MG TAB PO SCH (08:34)
--- NOTE | 2018-11-29 12:11 | CONS ---
Assessment/Plan Assessment/Plan Hospital Course (Demo Recall) NSTEMI: still likely type II in setting of severe , possible underlying CAD, sepsis, and CHF. She was also reportedly hypotensive at the board and care. Peak trop 1.8. No symptoms and no EKG changes. She may be a cath candidate if she is thought to be a TAVR candidate at some point which I dont think she is at this time Severe : low-flow low-gradient. Acute on ?chronic systolic heart failure: EF 30%. Now decompensated after IVF. Euvolemic now Strep bacteremia Sepsis Acute cholecystitis: s/p cholecystostomy tube 11/26/18 Dementia Incomplete data -ASA 81mg -lipitor 20mg -no BB with bradycardia -lasix 20mg PO daily -antibiotics -ok for d/c to SNF if will not be transferred to [place] Consultation Date/Type/Reason Admit Date/Time Nov 25, 2018 at 23:49 Initial Consult Date 11/26/18 Type of Consult Cardiology Requesting Provider: JOE MUNOZ Date/Time of Note DATE: 11/29/18 TIME: 12:10 24 HR Interval Summary Free Text/Dictation No events. No complaints Exam/Review of Systems Vital Signs Vitals Vital Signs Date Temp Pulse Resp B/P (MAP) Pulse Ox O2 O2 Flow FiO2 Time Delivery Rate 11/29/18 97.5 60 18 120/59 100 11:21 (79) 11/29/18 Nasal 3.0 08:00 Cannula Intake and Output 11/28/18 11/28/18 11/29/18 1414:59 22:59 06:59 IntakeIntake Total 100 ml 900 ml 250 ml OutputOutput Total 1125 ml 540 ml BalanceBalance 100 ml -225 ml -290 ml Exam Constitutional: alert, oriented Psych: no complaints, nl mood/affect Neck: supple; No jvd Cardiovascular: regular rate and rhythm, edema (trace), systolic murmur (3/6 late peaking KWAME) Gastrointestinal: soft, non-tender; No distended Neurological: nl mental status, nl speech Labs Result Diagram: 11/27/1852811/27/18528 Medications Medications Current Medications IV Flush (NS 3 ml) 3 ml PER PROTOCOL IV ; Start 11/26/18 at 00:00 Ondansetron HCl (Zofran Inj) 4 mg Q6H PRN IV NAUSEA/VOMITING; Start 11/26/18 at 00:00 Acetaminophen (Tylenol Tab) 650 mg Q6H PRN PO .PAIN 1-3 OR TEMP Last administered on 11/28/18 10:45; Admin Dose 650 MG; Start 11/26/18 at 00:00 Docusate Sodium (Colace) 100 mg Q12H PRN PO .CONSTIPATION; Start 11/26/18 at 00:00 Bisacodyl (Dulcolax) 5 mg DAILY PRN PO .CONSTIPATION Last administered on 11/28/18 09:25; Admin Dose 5 MG; Start 11/26/18 at 00:00 Aspirin (Aspirin) 81 mg DAILY PO Last administered on 11/29/18 08:34; Admin Dose 81 MG; Start 11/27/18 at 09:00 Atorvastatin Calcium (Lipitor) 20 mg HS PO Last administered on 11/28/18 22:57; Admin Dose 20 MG; Start 11/26/18 at 21:00 Cefepime HCl 50 ml @ 100 mls/hr Q24H IVPB Last administered on 11/28/18 22:56; Admin Dose 100 MLS/HR; Start 11/26/18 at 21:00 Collagenase (Santyl) 1 applic DAILY TOP Last administered on 11/29/18 08:34; Admin Dose 1 APPLIC; Start 11/28/18 at 09:00 Furosemide (Lasix) 20 mg DAILY PO Last administered on 11/29/18 08:34; Admin Dose 20 MG; Start 11/29/18 at 09:00 ISELA WORTHINGTON Nov 29, 2018 12:11
--- NOTE | 2018-11-29 13:35 | CONS ---
Assessment/Plan Assessment/Plan Hospital Course (Demo Recall) No acute events, awake, loks comfortable, no fevers Blood cultures and urine cx on admission grew strep agalactiae gallbladder fluid culture also growing strep agalactiae, repeat blood cultures negative Antimicrobials: Cefepime Indwelling: Right upper quadrant pigtail, Cabrera catheter Chest x-ray 11/26/18 revealed mild cardiomegaly with volume overload Physical examination: Fragile well-developed elderly woman who is alert in no distress. Head atraumatic normocephalic sclera nonicteric. Neck is supple chest rise symmetrical breath sounds diminished bases. Heart: S1-S2. Abdomen soft bowel sounds present extremities without cyanosis Assessment: 1. Sepsis, present on admission 2. Strep bacteremia 3. Strep urinary tract infection 4. Cholecystitis, status post CT-guided cholecystostomy catheter placement 5. Non-ST elevation [place] Plan: Stable, 2D echo on admission revealed no vegetations, repeat blood cultures negative, change abx to Rocephin and continue for 10 more days Consultation Date/Type/Reason Admit Date/Time Nov 25, 2018 at 23:49 Initial Consult Date 11/26/18 Type of Consult id Requesting Provider: JOE MUNOZ Date/Time of Note DATE: 11/29/18 TIME: 13:34 Exam/Review of Systems Exam Vitals Vital Signs Date Temp Pulse Resp B/P (MAP) Pulse Ox O2 O2 Flow FiO2 Time Delivery Rate 11/29/18 68 12:50 11/29/18 97.5 18 120/59 100 11:21 (79) 11/29/18 Nasal 3.0 08:00 Cannula Intake and Output 11/28/18 11/28/18 11/29/18 1515:00 23:00 07:00 IntakeIntake Total 900 ml 250 ml OutputOutput Total 1125 ml 540 ml BalanceBalance -225 ml -290 ml Results Result Diagram: 11/27/18 0529 11/27/18 0529 Medications Medication Current Medications IV Flush (NS 3 ml) 3 ml PER PROTOCOL IV ; Start 11/26/18 at 00:00 Ondansetron HCl (Zofran Inj) 4 mg Q6H PRN IV NAUSEA/VOMITING; Start 11/26/18 at 00:00 Acetaminophen (Tylenol Tab) 650 mg Q6H PRN PO .PAIN 1-3 OR TEMP Last administer ed on 11/28/18 10:45; Admin Dose 650 MG; Start 11/26/18 at 00:00 Docusate Sodium (Colace) 100 mg Q12H PRN PO .CONSTIPATION; Start 11/26/18 at 00:00 Bisacodyl (Dulcolax) 5 mg DAILY PRN PO .CONSTIPATION Last administered on 11/28/18 09:25; Admin Dose 5 MG; Start 11/26/18 at 00:00 Aspirin (Aspirin) 81 mg DAILY PO Last administered on 11/29/18 08:34; Admin Dose 81 MG; Start 11/27/18 at 09:00 Atorvastatin Calcium (Lipitor) 20 mg HS PO Last administered on 11/28/18 22:57; Admin Dose 20 MG; Start 11/26/18 at 21:00 Cefepime HCl 50 ml @ 100 mls/hr Q24H IVPB Last administered on 11/28/18 22:56; Admin Dose 100 MLS/HR; Start 11/26/18 at 21:00 Collagenase (Santyl) 1 applic DAILY TOP Last administered on 11/29/18 08:34; Admin Dose 1 APPLIC; Start 11/28/18 at 09:00 Furosemide (Lasix) 20 mg DAILY PO Last administered on 11/29/18 08:34; Admin Dose 20 MG; Start 11/29/18 at 09:00 DAYAN DENT NP Nov 29, 2018 13:35
[2018-11-29] MEDS ORDERED: LAS20 PO (13:48)
[2018-11-29] MEDS ORDERED: ASPI-831 PO (13:48)
[2018-11-29] MEDS ORDERED: ATOR20TA65 PO (13:48)
--- NOTE | 2018-11-29 13:51 | DS ---
Date/Time of Note Date/Time of Note DATE: 11/29/18 TIME: 13:48 Discharge Summary Admission/Discharge Info Admit Date/Time Nov 25, 2018 at 23:49 Discharge Date/Time November 29, 2018 Discharge Diagnosis 88 yo female with dementia who presented with respiratory distress and hypotension. Found to have systolic CHF, , bacteremia and cholecystitis Acute systolic CHF with causing b/l pleural effusions and respiratory failure: -Continue statin, Lasix and aspirin -No beta-don secondary to bradycardia -Cardiology consultation appreciated Bacteremia secondary to cholecystitis -Status post vancomycin and cefepime -DC with Rocephin for 10 more days -Blood cultures show group B strep, gallbladder fluid culture also is consistent with group B strep Repeat blood cultures are now negative -Status post cholecystostomy -ID consultation appreciated Dementia: - Stable, resides in a alf NSTEMI: Type II -Cardiology consultation appreciated, DC with aspirin and statin, no beta- don secondary to bradycardia Patient Condition: Good Hospital Course Patient is a 88 yo female with dementia who resides in a alf who presented with respiratory distress and hypotension. Found to have systolic CHF, , bacteremia and cholecystitis. Patient status post cholecystostomy tube placement as well as antibiotics, cultures show group B strep as did fluid from the gallbladder. Patient was stable for DC back to alf, on the day of discharge patient vitals, labs and physical exam are stable. Home Meds Active Scripts Furosemide (Lasix) 20 Mg Tab, 20 MG PO DAILY, #60 TAB Prov:SHAY SANTILLAN 11/29/18 Aspirin (Aspirin) 81 Mg Chew, 81 MG PO DAILY, #60 TAB Prov:SHAY SANTILLAN 11/29/18 Atorvastatin Calcium (Atorvastatin Calcium) 20 Mg Tablet, 20 MG PO HS, #60 TAB Prov:SHAY SANTILLAN 11/29/18 Follow-up Plan [facility] with [facility] facility Primary Care Provider Not On Staff Doctor Time spent on discharge: > 30 minutes SHAY SANTILLAN Nov 29, 2018 13:51
[2018-11-29] MEDS: CEFTRIAXONE 1 GM/50 ML (PMX) 50 ML IVPB SCH (14:23)
[2018-11-29] MEDS: BISACODYL (EC) 5 MG TAB PO PRN (21:10)
[2018-11-29] MEDS: ATORVASTATIN 20 MG TAB PO SCH (21:11)
[2018-11-29] MEDS: ACETAMINOPHEN 325 MG TAB PO PRN (22:04)
[2018-11-30] VITALS (9 sets, daily range): BP systolic 111–144; BP diastolic 57–72; PULSE 59–75; RESP 18–22
--- NOTE | 2018-11-30 09:13 | CONS ---
Assessment/Plan Assessment/Plan Hospital Course (Demo Recall) NSTEMI: still likely type II in setting of severe , possible underlying CAD, sepsis, and CHF. She was also reportedly hypotensive at the board and care. Peak trop 1.8. No symptoms and no EKG changes. She may be a cath candidate if she is thought to be a TAVR candidate at some point which I dont think she is at this time Severe : low-flow low-gradient. Acute on ?chronic systolic heart failure: EF 30%. Now decompensated after IVF. Euvolemic now Strep bacteremia Sepsis Acute cholecystitis: s/p cholecystostomy tube 11/26/18 Dementia Incomplete data -ASA 81mg -lipitor 20mg -no BB with bradycardia -lasix 20mg PO daily -antibiotics -ok for d/c to SNF if will not be transferred to [place] Consultation Date/Type/Reason Admit Date/Time Nov 25, 2018 at 23:49 Initial Consult Date 11/26/18 Type of Consult Cardiology Requesting Provider: JOE MUNOZ Date/Time of Note DATE: 11/30/18 TIME: 09:12 24 HR Interval Summary Free Text/Dictation No events. No complaints Exam/Review of Systems Vital Signs Vitals Vital Signs Date Temp Pulse Resp B/P (MAP) Pulse Ox O2 O2 Flow FiO2 Time Delivery Rate 11/30/18 97.5 59 22 113/65 96 Room Air 08:11 (81) 11/29/18 3.0 20:00 Intake and Output 11/29/18 11/29/18 11/30/18 1515:00 23:00 07:00 IntakeIntake Total 240 ml 460 ml 240 ml OutputOutput Total 20 ml 620 ml 500 ml BalanceBalance 220 ml -160 ml -260 ml Exam Constitutional: alert, oriented Psych: no complaints, nl mood/affect Neck: supple; No jvd Respiratory: diminished breath sounds; No clear to auscultation Cardiovascular: regular rate and rhythm, edema (trace), systolic murmur (3/6 late peaking KAWME) Gastrointestinal: soft, non-tender; No distended Neurological: nl mental status, nl speech Labs Result Diagram: 11/27/1829 11/27/18528 Medications Medications Current Medications IV Flush (NS 3 ml) 3 ml PER PROTOCOL IV ; Start 11/26/18 at 00:00 Ondansetron HCl (Zofran Inj) 4 mg Q6H PRN IV NAUSEA/VOMITING; Start 11/26/18 at 00:00 Acetaminophen (Tylenol Tab) 650 mg Q6H PRN PO .PAIN 1-3 OR TEMP Last administered on 11/29/18 22:04; Admin Dose 650 MG; Start 11/26/18 at 00:00 Docusate Sodium (Colace) 100 mg Q12H PRN PO .CONSTIPATION Last administered on 11/29/18 16:12; Admin Dose 100 MG; Start 11/26/18 at 00:00 Bisacodyl (Dulcolax) 5 mg DAILY PRN PO .CONSTIPATION Last administered on 11/29/18 21:10; Admin Dose 5 MG; Start 11/26/18 at 00:00 Aspirin (Aspirin) 81 mg DAILY PO Last administered on 11/29/18 08:34; Admin Dose 81 MG; Start 11/27/18 at 09:00 Atorvastatin Calcium (Lipitor) 20 mg HS PO Last administered on 11/29/18 21:11; Admin Dose 20 MG; Start 11/26/18 at 21:00 Collagenase (Santyl) 1 applic DAILY TOP Last administered on 11/29/18 08:34; Admin Dose 1 APPLIC; Start 11/28/18 at 09:00 Furosemide (Lasix) 20 mg DAILY PO Last administered on 11/29/18 08:34; Admin Dose 20 MG; Start 11/29/18 at 09:00 Ceftriaxone Sodium 50 ml @ 100 mls/hr Q24H IVPB Last administered on 11/29/18 14:23; Admin Dose 100 MLS/HR; Start 11/29/18 at 14:00 ISELA WORTHINGTON Nov 30, 2018 09:13
[2018-11-30] MEDS: ASPIRIN 81 MG TAB PO SCH (09:27)
[2018-11-30] MEDS: COLLAGENASE 5 GM (UD JAR) TOP SCH (09:28)
[2018-11-30] MEDS: FUROSEMIDE 20 MG TAB PO SCH (09:28)
--- NOTE | 2018-11-30 13:25 | CONS ---
Assessment/Plan Assessment/Plan Hospital Course (Demo Recall) Looks comfortable, no fevers Blood cultures and urine cx on admission grew strep agalactiae gallbladder fluid culture also growing strep agalactiae, repeat blood cultures negative Antimicrobials: Rocephin Indwelling: Right upper quadrant pigtail, Cabrera catheter Chest x-ray 11/26/18 revealed mild cardiomegaly with volume overload Physical examination: Fragile well-developed elderly woman who is alert in no distress. Head atraumatic normocephalic sclera nonicteric. Neck is supple chest rise symmetrical breath sounds diminished bases. Heart: S1-S2. Abdomen soft bowel sounds present extremities without cyanosis Assessment: 1. Sepsis, present on admission 2. Strep bacteremia 3. Strep urinary tract infection 4. Cholecystitis, status post CT-guided cholecystostomy catheter placement 5. Non-ST elevation [place] Plan: Remains stable, 2D echo on admission revealed no vegetations, repeat blood cultures negative, continue abx for 9 more days Consultation Date/Type/Reason Admit Date/Time Nov 25, 2018 at 23:49 Initial Consult Date 11/26/18 Type of Consult id Requesting Provider: JOE MUNOZ Date/Time of Note DATE: 11/30/18 TIME: 13:24 Exam/Review of Systems Exam Vitals Vital Signs Date Temp Pulse Resp B/P (MAP) Pulse Ox O2 O2 Flow FiO2 Time Delivery Rate 11/30/18 98.0 64 22 129/68 96 Nasal 12:17 (88) Cannula 11/30/18 3.0 08:30 Intake and Output 11/29/18 11/29/18 11/30/18 1515:00 23:00 07:00 IntakeIntake Total 240 ml 460 ml 240 ml OutputOutput Total 20 ml 620 ml 500 ml BalanceBalance 220 ml -160 ml -260 ml Results Result Diagram: 11/27/18 0529 11/27/18 0529 Medications Medication Current Medications IV Flush (NS 3 ml) 3 ml PER PROTOCOL IV ; Start 11/26/18 at 00:00 Ondansetron HCl (Zofran Inj) 4 mg Q6H PRN IV NAUSEA/VOMITING; Start 11/26/18 at 00:00 Acetaminophen (Tylenol Tab) 650 mg Q6H PRN PO .PAIN 1-3 OR TEMP Last administered on 11/29/18at 22:04; Admin Dose 650 MG; Start 11/26/18 at 00:00 Docusate Sodium (Colace) 100 mg Q12H PRN PO .CONSTIPATION Last administered on 11/29/18 16:12; Admin Dose 100 MG; Start 11/26/18 at 00:00 Bisacodyl (Dulcolax) 5 mg DAILY PRN PO .CONSTIPATION Last administered on 11/29/18 21:10; Admin Dose 5 MG; Start 11/26/18 at 00:00 Aspirin (Aspirin) 81 mg DAILY PO Last administered on 11/30/18 09:27; Admin Dose 81 MG; Start 11/27/18 at 09:00 Atorvastatin Calcium (Lipitor) 20 mg HS PO Last administered on 11/29/18 21:11; Admin Dose 20 MG; Start 11/26/18 at 21:00 Collagenase (Santyl) 1 applic DAILY TOP Last administered on 11/30/18 09:28; Admin Dose 1 APPLIC; Start 11/28/18 at 09:00 Furosemide (Lasix) 20 mg DAILY PO Last administered on 11/30/18 09:28; Admin Dose 20 MG; Start 11/29/18 at 09:00 Ceftriaxone Sodium 50 ml @ 100 mls/hr Q24H IVPB Last administered on 11/29/18 14:23; Admin Dose 100 MLS/HR; Start 11/29/18 at 14:00 DAYAN DENT [employer] Nov 30, 2018 13:25
[2018-11-30] MEDS: CEFTRIAXONE 1 GM/50 ML (PMX) 50 ML IVPB SCH (14:04)
--- NOTE | 2018-11-30 16:40 | PN ---
Date/Time of Note Date/Time of Note DATE: 11/30/18 TIME: 16:37 Assessment/Plan VTE Prophylaxis Risk score (from Nsg)>0 risk: 7 Pharmacological prophylaxis: NA/contraindicated Pharm contraindication: surgical contra Lines/Catheters IV Catheter Type (from Nrsg): Saline Lock Assessment/Plan Hospital Course 88 yo female with dementia who presented with respiratory distress and hypotension. Found to have systolic CHF, , bacteremia and cholecystitis Acute systolic CHF with causing b/l pleural effusions and respiratory failure: -Continue statin, Lasix and aspirin -No beta-don secondary to bradycardia -Cardiology consultation appreciated Bacteremia secondary to cholecystitis -Status post vancomycin and cefepime -Continue Rocephin -Blood cultures show group B strep, gallbladder fluid culture also is consistent with group B strep Repeat blood cultures are now negative -Status post cholecystostomy -ID consultation appreciated Dementia: - Stable[facility], case management social worker working on arrangements NSTEMI: Type II -Cardiology consultation appreciated, continue aspirin and statin, no beta- don secondary to bradycardia DC planning: client program manager working on placement Result Diagram: 11/27/1829 11/27/1829 Subjective 24 Hr Interval Summary Constitutional: disoriented Exam/Review of Systems Exam Vitals Vital Signs Date Temp Pulse Resp B/P (MAP) Pulse Ox O2 O2 Flow FiO2 Time Delivery Rate 11/30/18 98.0 59 22 128/66 96 Nasal 16:09 (86) Cannula 11/30/18 3.0 08:30 Intake and Output 11/29/18 11/29/18 11/30/18 1515:00 23:00 07:00 IntakeIntake Total 240 ml 460 ml 240 ml OutputOutput Total 20 ml 620 ml 500 ml BalanceBalance 220 ml -160 ml -260 ml Psych: confusion Respiratory: clear to auscultation Cardiovascular: regular rate and rhythm Gastrointestinal: soft; No distended Musculoskeletal: nl extremities to inspection Medications Medication Current Medications IV Flush (NS 3 ml) 3 ml PER PROTOCOL IV ; Start 11/26/18 at 00:00 Ondansetron HCl (Zofran Inj) 4 mg Q6H PRN IV NAUSEA/VOMITING; Start 11/26/18 at 00:00 Acetaminophen (Tylenol Tab) 650 mg Q6H PRN PO .PAIN 1-3 OR TEMP Last administered on 11/29/18 22:04; Admin Dose 650 MG; Start 11/26/18 at 00:00 Docusate Sodium (Colace) 100 mg Q12H PRN PO .CONSTIPATION Last administered on 11/29/18 16:12; Admin Dose 100 MG; Start 11/26/18 at 00:00 Bisacodyl (Dulcolax) 5 mg DAILY PRN PO .CONSTIPATION Last administered on 11/29/18 21:10; Admin Dose 5 MG; Start 11/26/18 at 00:00 Aspirin (Aspirin) 81 mg DAILY PO Last administered on 11/30/18 09:27; Admin Dose 81 MG; Start 11/27/18 at 09:00 Atorvastatin Calcium (Lipitor) 20 mg HS PO Last administered on 11/29/18 21:11; Admin Dose 20 MG; Start 11/26/18 at 21:00 Collagenase (Santyl) 1 applic DAILY TOP Last administered on 11/30/18 09:28; Admin Dose 1 APPLIC; Start 11/28/18 at 09:00 Furosemide (Lasix) 20 mg DAILY PO Last administered on 11/30/18 09:28; Admin Dose 20 MG; Start 11/29/18 at 09:00 Ceftriaxone Sodium 50 ml @ 100 mls/hr Q24H IVPB Last administered on 11/30/18 14:04; Admin Dose 100 MLS/HR; Start 11/29/18 at 14:00 SHAY SANTILLAN Nov 30, 2018 16:40
[2018-11-30] MEDS ORDERED: ATORVASTATIN 20 MG TAB PO SCH (21:00)
[2018-11-30] MEDS: ATORVASTATIN 20 MG TAB PO SCH (23:20)
[2018-12-01 01:05] VITALS: BP 108/51; PULSE 67; RESP 18
[2018-12-01] MEDS: BISACODYL (EC) 5 MG TAB PO PRN (05:42)
[2018-12-01 07:21] VITALS: BP 115/57; PULSE 69; RESP 18
[2018-12-01] MEDS ORDERED: FUROSEMIDE 20 MG TAB PO SCH (09:00)
[2018-12-01] MEDS ORDERED: ASPIRIN 81 MG TAB PO SCH (09:00)
[2018-12-01] MEDS: ASPIRIN 81 MG TAB PO SCH (09:11)
[2018-12-01] MEDS: MULTIVITAMINS/MINERALS TAB PO SCH (09:11)
[2018-12-01] MEDS: COLLAGENASE 5 GM (UD JAR) TOP SCH (09:12)
[2018-12-01] MEDS: FUROSEMIDE 20 MG TAB PO SCH (09:14)
--- NOTE | 2018-12-01 09:14 | CONS ---
Assessment/Plan Assessment/Plan Hospital Course (Demo Recall) NSTEMI: still likely type II in setting of severe , possible underlying CAD, sepsis, and CHF. She was also reportedly hypotensive at the board and care. Peak trop 1.8. No symptoms and no EKG changes. She may be a cath candidate if she is thought to be a TAVR candidate at some point which I dont think she is at this time Severe : low-flow low-gradient. Acute on ?chronic systolic heart failure: EF 30%. Now decompensated after IVF. Euvolemic now Strep bacteremia Sepsis Acute cholecystitis: s/p cholecystostomy tube 11/26/18 Dementia Incomplete data -ASA 81mg -lipitor 20mg -no BB with bradycardia -lasix 20mg PO daily -antibiotics -ok for d/c to SNF Consultation Date/Type/Reason Admit Date/Time Nov 25, 2018 at 23:49 Initial Consult Date 11/26/18 Type of Consult Cardiology Requesting Provider: JOE MUNOZ Date/Time of Note DATE: 12/01/18 TIME: 09:13 24 HR Interval Summary Free Text/Dictation No events. No complaints. Awaiting SNF transfer Exam/Review of Systems Vital Signs Vitals Vital Signs Date Temp Pulse Resp B/P (MAP) Pulse Ox O2 O2 Flow FiO2 Time Delivery Rate 12/01/18 98.0 69 18 115/57 100 07:21 (76) 12/01/18 Nasal 01:05 Cannula 11/30/18 3.0 20:00 Intake and Output 11/30/18 11/30/18 12/01/18 1515:00 23:00 07:00 IntakeIntake Total 480 ml OutputOutput Total 20 ml 620 ml 60 ml BalanceBalance -20 ml -140 ml -60 ml Exam Constitutional: alert, oriented Psych: no complaints Neck: supple; No jvd Respiratory: diminished breath sounds; No clear to auscultation Cardiovascular: regular rate and rhythm, edema (trace), systolic murmur (3/6 KWAME) Gastrointestinal: soft, non-tender; No distended Neurological: nl mental status, nl speech Labs Result Diagram: 11/27/1829 11/27/18528 Medications Medications Current Medications IV Flush (NS 3 ml) 3 ml PER PROTOCOL IV ; Start 11/26/18 at 00:00 Ondansetron HCl (Zofran Inj) 4 mg Q6H PRN IV NAUSEA/VOMITING; Start 11/26/18 at 00:00 Acetaminophen (Tylenol Tab) 650 mg Q6H PRN PO .PAIN 1-3 OR TEMP Last administered on 11/29/18 22:04; Admin Dose 650 MG; Start 11/26/18 at 00:00 Docusate Sodium (Colace) 100 mg Q12H PRN PO .CONSTIPATION Last administered on 11/29/18 16:12; Admin Dose 100 MG; Start 11/26/18 at 00:00 Bisacodyl (Dulcolax) 5 mg DAILY PRN PO .CONSTIPATION Last administered on 12/01/18 05:42; Admin Dose 5 MG; Start 11/26/18 at 00:00 Aspirin (Aspirin) 81 mg DAILY PO Last administered on 12/01/18 09:11; Admin Dose 81 MG; Start 11/27/18 at 09:00 Atorvastatin Calcium (Lipitor) 20 mg HS PO Last administered on 11/30/18 23:20; Admin Dose 20 MG; Start 11/26/18 at 21:00 Collagenase (Santyl) 1 applic DAILY TOP Last administered on 12/01/18 09:12; Admin Dose 1 APPLIC; Start 11/28/18 at 09:00 Furosemide (Lasix) 20 mg DAILY PO Last administered on 11/30/18 09:28; Admin Dose 20 MG; Start 11/29/18 at 09:00 Ceftriaxone Sodium 50 ml @ 100 mls/hr Q24H IVPB Last administered on 11/30/18 14:04; Admin Dose 100 MLS/HR; Start 11/29/18 at 14:00 Multivitamins/ Minerals (Theragran-M) 1 tab DAILY PO Last administered on 12/01/18 09:11; Admin Dose 1 TAB; Start 12/01/18 at 09:00 Ascorbic Acid (Vitamin C) 250 mg DAILY PO ; Start 12/01/18 at 09:00; Stop 12/11/18 at 09:00 Zinc Sulfate (Zinc Sulfate) 220 mg DAILY PO ; Start 12/01/18 at 09:00; Stop 12/11/18 at 09:00 ISELA WORTHINGTON Dec 01, 2018 09:14
[2018-12-01] MEDS: ZINC SULFATE 220 MG CAP PO SCH (10:42)
[2018-12-01] MEDS: ASCORBIC ACID 250 MG TAB PO SCH (10:42)
--- NOTE | 2018-12-01 11:50 | PN ---
Date/Time of Note Date/Time of Note DATE: 12/01/18 TIME: 11:50 Assessment/Plan VTE Prophylaxis Risk score (from Nsg)>0 risk: 6 Pharmacological prophylaxis: NA/contraindicated Pharm contraindication: other Lines/Catheters IV Catheter Type (from Nrsg): Saline Lock Assessment/Plan Hospital Course 88 yo female with dementia who presented with respiratory distress and hypotension. Found to have systolic CHF, , bacteremia and cholecystitis Acute systolic CHF with causing b/l pleural effusions and respiratory failure: -Continue statin, Lasix and aspirin -No beta-don secondary to bradycardia -Cardiology consultation appreciated Bacteremia secondary to cholecystitis -Status post vancomycin and cefepime -Continue Rocephin -Blood cultures show group B strep, gallbladder fluid culture also is consistent with group B strep Repeat blood cultures are now negative -Status post cholecystostomy -ID consultation appreciated Dementia: - Stable[facility], rn case manager working on arrangements NSTEMI: Type II -Cardiology consultation appreciated, continue aspirin and statin, no beta- don secondary to bradycardia DC planning: custodial services manager working on placement Result Diagram: 11/27/1852811/27/18528 Subjective 24 Hr Interval Summary Constitutional: disoriented Exam/Review of Systems Exam Vitals Vital Signs Date Temp Pulse Resp B/P (MAP) Pulse Ox O2 O2 Flow FiO2 Time Delivery Rate 12/01/18 98.0 69 18 115/57 100 07:21 (76) 12/01/18 Nasal 01:05 Cannula 11/30/18 3.0 20:00 Intake and Output 11/30/18 11/30/18 12/01/18 1414:59 22:59 06:59 IntakeIntake Total 480 ml OutputOutput Total 20 ml 620 ml 60 ml BalanceBalance -20 ml -140 ml -60 ml Psych: confusion Respiratory: clear to auscultation Cardiovascular: regular rate and rhythm Gastrointestinal: soft; No distended Musculoskeletal: nl extremities to inspection Medications Medication Current Medications IV Flush (NS 3 ml) 3 ml PER PROTOCOL IV ; Start 11/26/18 at 00:00 Ondansetron HCl (Zofran Inj) 4 mg Q6H PRN IV NAUSEA/VOMITING; Start 11/26/18 at 00:00 Acetaminophen (Tylenol Tab) 650 mg Q6H PRN PO .PAIN 1-3 OR TEMP Last administered on 4/10/19at 22:04; Admin Dose 650 MG; Start 11/26/18 at 00:00 Docusate Sodium (Colace) 100 mg Q12H PRN PO .CONSTIPATION Last administered on 11/29/18 16:12; Admin Dose 100 MG; Start 11/26/18 at 00:00 Bisacodyl (Dulcolax) 5 mg DAILY PRN PO .CONSTIPATION Last administered on 12/01/18 05:42; Admin Dose 5 MG; Start 11/26/18 at 00:00 Aspirin (Aspirin) 81 mg DAILY PO Last administered on 12/01/18 09:11; Admin Dose 81 MG; Start 11/27/18 at 09:00 Atorvastatin Calcium (Lipitor) 20 mg HS PO Last administered on 11/30/18 23:20; Admin Dose 20 MG; Start 11/26/18 at 21:00 Collagenase (Santyl) 1 applic DAILY TOP Last administered on 12/01/18 09:12; Admin Dose 1 APPLIC; Start 11/28/18 at 09:00 Furosemide (Lasix) 20 mg DAILY PO Last administered on 12/01/18 09:14; Admin Dose 20 MG; Start 11/29/18 at 09:00 Ceftriaxone Sodium 50 ml @ 100 mls/hr Q24H IVPB Last administered on 11/30/18 14:04; Admin Dose 100 MLS/HR; Start 11/29/18 at 14:00 Multivitamins/ Minerals (Theragran-M) 1 tab DAILY PO Last administered on 12/01/18 09:11; Admin Dose 1 TAB; Start 12/01/18 at 09:00 Ascorbic Acid (Vitamin C) 250 mg DAILY PO Last administered on 12/01/18 10:42; Admin Dose 250 MG; Start 12/01/18 at 09:00; Stop 12/11/18 at 09:00 Zinc Sulfate (Zinc Sulfate) 220 mg DAILY PO Last administered on 12/01/18 10:42; Admin Dose 220 MG; Start 12/01/18 at 09:00; Stop 12/11/18 at 09:00 SHAY SANTILLAN Dec 01, 2018 11:50
--- NOTE | 2018-12-01 12:49 | CONS ---
Assessment/Plan Assessment/Plan Hospital Course (Demo Recall) No acute events, looks comfortable, sleeping, no fevers Blood cultures and urine cx on admission grew strep agalactiae gallbladder fluid culture also growing strep agalactiae, repeat blood cultures negative Antimicrobials: Rocephin Indwelling: Right upper quadrant pigtail, Cabrera catheter Chest x-ray 11/26/18 revealed mild cardiomegaly with volume overload Physical examination: Fragile well-developed elderly woman who is alert in no distress. Head atraumatic normocephalic sclera nonicteric. Neck is supple chest rise symmetrical breath sounds diminished bases. Heart: S1-S2. Abdomen soft bowel sounds present extremities without cyanosis Assessment: 1. Sepsis, present on admission 2. Strep bacteremia 3. Strep urinary tract infection 4. Cholecystitis, status post CT-guided cholecystostomy catheter placement 5. Non-ST elevation [place] Plan: Remains stable, 2D echo on admission revealed no vegetations, repeat blood cultures negative, continue abx for 8 more days Consultation Date/Type/Reason Admit Date/Time Nov 25, 2018 at 23:49 Initial Consult Date 11/26/18 Type of Consult id Requesting Provider: JOE MUNOZ Date/Time of Note DATE: 12/01/18 TIME: 12:48 Exam/Review of Systems Exam Vitals Vital Signs Date Temp Pulse Resp B/P (MAP) Pulse Ox O2 O2 Flow FiO2 Time Delivery Rate 12/01/18 98.0 69 18 115/57 100 07:21 (76) 12/01/18 Nasal 01:05 Cannula 11/30/18 3.0 20:00 Intake and Output 11/30/18 11/30/18 12/01/18 1515:00 23:00 07:00 IntakeIntake Total 480 ml OutputOutput Total 20 ml 620 ml 60 ml BalanceBalance -20 ml -140 ml -60 ml Results Result Diagram: 11/27/1829 11/27/18528 Medications Medication Current Medications IV Flush (NS 3 ml) 3 ml PER PROTOCOL IV ; Start 11/26/18 at 00:00 Ondansetron HCl (Zofran Inj) 4 mg Q6H PRN IV NAUSEA/VOMITING; Start 11/26/18 at 00:00 Acetaminophen (Tylenol Tab) 650 mg Q6H PRN PO .PAIN 1-3 OR TEMP Last administered on 11/29/18 22:04; Admin Dose 650 MG; Start 11/26/18 at 00:00 Docusate Sodium (Colace) 100 mg Q12H PRN PO .CONSTIPATION Last administered on 11/29/18 16:12; Admin Dose 100 MG; Start 11/26/18 at 00:00 Bisacodyl (Dulcolax) 5 mg DAILY PRN PO .CONSTIPATION Last administered on 12/01/18 05:42; Admin Dose 5 MG; Start 11/26/18 at 00:00 Aspirin (Aspirin) 81 mg DAILY PO Last administered on 12/01/18 09:11; Admin Dose 81 MG; Start 11/27/18 at 09:00 Atorvastatin Calcium (Lipitor) 20 mg HS PO Last administered on 11/30/18 23:20; Admin Dose 20 MG; Start 11/26/18 at 21:00 Collagenase (Santyl) 1 applic DAILY TOP Last administered on 12/01/18 09:12; Admin Dose 1 APPLIC; Start 11/28/18 at 09:00 Furosemide (Lasix) 20 mg DAILY PO Last administered on 12/01/18 09:14; Admin Dose 20 MG; Start 11/29/18 at 09:00 Ceftriaxone Sodium 50 ml @ 100 mls/hr Q24H IVPB Last administered on 11/30/18 14:04; Admin Dose 100 MLS/HR; Start 11/29/18 at 14:00 Multivitamins/ Minerals (Theragran-M) 1 tab DAILY PO Last administered on 12/01/18 09:11; Admin Dose 1 TAB; Start 12/01/18 at 09:00 Ascorbic Acid (Vitamin C) 250 mg DAILY PO Last administered on 12/01/18 10:42; Admin Dose 250 MG; Start 12/01/18 at 09:00; Stop 12/11/18 at 09:00 Zinc Sulfate (Zinc Sulfate) 220 mg DAILY PO Last administered on 12/01/18 10:42; Admin Dose 220 MG; Start 12/01/18 at 09:00; Stop 12/11/18 at 09:00 DAYAN DENT NP Dec 01, 2018 12:49
[2018-12-01] MEDS: CEFTRIAXONE 1 GM/50 ML (PMX) 50 ML IVPB SCH (14:00)
[2018-12-01 14:44] VITALS: BP 118/60; PULSE 66; RESP 18
[2018-12-01] MEDS: BALSAM PERU/CASTOR OIL 60 GM TUBE TOP SCH ×2 (16:09→21:17)
[2018-12-01 19:05] VITALS: BP 111/54; PULSE 74; RESP 18
[2018-12-01] MEDS: ATORVASTATIN 20 MG TAB PO SCH (21:17)
[2018-12-02 02:00] VITALS: BP 111/72; PULSE 62; RESP 16
[2018-12-02 08:45] VITALS: BP 121/81; PULSE 75; RESP 18
[2018-12-02] MEDS: ASCORBIC ACID 250 MG TAB PO SCH (09:06)
[2018-12-02] MEDS: ZINC SULFATE 220 MG CAP PO SCH (09:07)
[2018-12-02] MEDS: ASPIRIN 81 MG TAB PO SCH (09:07)
[2018-12-02] MEDS: FUROSEMIDE 20 MG TAB PO SCH (09:07)
[2018-12-02] MEDS: MULTIVITAMINS/MINERALS TAB PO SCH (09:07)
[2018-12-02] MEDS: BALSAM PERU/CASTOR OIL 60 GM TUBE TOP SCH ×2 (09:08→21:40)
[2018-12-02] MEDS: COLLAGENASE 5 GM (UD JAR) TOP SCH (09:08)
--- NOTE | 2018-12-02 11:17 | PN ---
Date/Time of Note Date/Time of Note DATE: 12/02/18 TIME: 11:16 Assessment/Plan VTE Prophylaxis Risk score (from Ns)>0 risk: 7 SCD applied (from Ns): Yes Pharmacological prophylaxis: NA/contraindicated Pharm contraindication: surgical contra Lines/Catheters [facility] Saline Lock Assessment/Plan Hospital Course 88 yo female with dementia who presented with respiratory distress and hypotension. Found to have systolic CHF, , bacteremia and cholecystitis Acute systolic CHF with causing b/l pleural effusions and respiratory f ailure: -Continue statin, Lasix and aspirin -No beta-don secondary to bradycardia -Cardiology consultation appreciated Bacteremia secondary to cholecystitis -Status post vancomycin and cefepime -Continue Rocephin -Blood cultures show group B strep, gallbladder fluid culture also is consistent with group B strep Repeat blood cultures are now negative -Status post cholecystostomy -ID consultation appreciated Dementia: - Stable, resides in a boarding care but now needs a [facility] facility, adult protective caseworker working on arrangements NSTEMI: Type II -Cardiology consultation appreciated, continue aspirin and statin, no beta-block er secondary to bradycardia DC planning: divisional merchandising manager working on placement Subjective 24 Hr Interval Summary Constitutional: disoriented Exam/Review of Systems Exam Vitals Vital Signs Date Temp Pulse Resp B/P (MAP) Pulse Ox O2 O2 Flow FiO2 Time Delivery Rate 12/02/18 Nasal 2.0 10:25 Cannula 12/02/18 98.5 75 18 121/81 99 08:45 (94) Intake and Output 12/01/18 12/01/18 12/02/18 1515:00 23:00 07:00 IntakeIntake Total 20 ml 50 ml OutputOutput Total 460 ml 560 ml BalanceBalance 20 ml -410 ml -560 ml Psych: confusion Respiratory: clear to auscultation Cardiovascular: regular rate and rhythm Gastrointestinal: soft; No distended Musculoskeletal: nl extremities to inspection Medications Medication Current Medications IV Flush (NS 3 ml) 3 ml PER PROTOCOL IV ; Start 11/26/18 at 00:00 Ondansetron HCl (Zofran Inj) 4 mg Q6H PRN IV NAUSEA/VOMITING; Start 11/26/18 at 00:00 Acetaminophen (Tylenol Tab) 650 mg Q6H PRN PO .PAIN 1-3 OR TEMP Last administered on 11/29/18at 22:04; Admin Dose 650 MG; Start 11/26/18 at 00:00 Docusate Sodium (Colace) 100 mg Q12H PRN PO .CONSTIPATION Last administered on 11/29/18 16:12; Admin Dose 100 MG; Start 11/26/18 at 00:00 Bisacodyl (Dulcolax) 5 mg DAILY PRN PO .CONSTIPATION Last administered on 12/01/18 05:42; Admin Dose 5 MG; Start 11/26/18 at 00:00 Aspirin (Aspirin) 81 mg DAILY PO Last administered on 12/02/18 09:07; Admin Dose 81 MG; Start 11/27/18 at 09:00 Atorvastatin Calcium (Lipitor) 20 mg HS PO Last administered on 12/01/18 21:17; Admin Dose 20 MG; Start 11/26/18 at 21:00 Collagenase (Santyl) 1 applic DAILY TOP Last administered on 12/02/18 09:08; Admin Dose 1 APPLIC; Start 11/28/18 at 09:00 Furosemide (Lasix) 20 mg DAILY PO Last administered on 12/02/18 09:07; Admin Dose 20 MG; Start 11/29/18 at 09:00 Ceftriaxone Sodium 50 ml @ 100 mls/hr Q24H IVPB Last administered on 12/01/18 14:00; Admin Dose 100 MLS/HR; Start 11/29/18 at 14:00 Multivitamins/ Minerals (Theragran-M) 1 tab DAILY PO Last administered on 12/02/18 09:07; Admin Dose 1 TAB; Start 12/01/18 at 09:00 Ascorbic Acid (Vitamin C) 250 mg DAILY PO Last administered on 12/02/18 09:06; Admin Dose 250 MG; Start 12/01/18 at 09:00; Stop 12/11/18 at 09:00 Zinc Sulfate (Zinc Sulfate) 220 mg DAILY PO Last administered on 12/02/18 09:07; Admin Dose 220 MG; Start 12/01/18 at 09:00; Stop 12/11/18 at 09:00 SHAY SANTILLAN Dec 02, 2018 11:17
[2018-12-02] MEDS: CEFTRIAXONE 1 GM/50 ML (PMX) 50 ML IVPB SCH (14:34)
[2018-12-02 14:52] VITALS: BP 129/61; PULSE 79; RESP 18
--- NOTE | 2018-12-02 15:44 | CONS ---
Consultation Date/Type/Reason Admit Date/Time Nov 25, 2018 at 23:49 Initial Consult Date SUBJECTIVE: No acute events over night. Pt looks comfortable, no fevers VS: stable T: 98.3 LABS: reviewed. Blood cultures and urine cx on admission grew strep agalactiae gallbladder fluid culture also growing strep agalactiae. Repeat blood cultures negative Antimicrobials: Rocephin Indwelling: Right upper quadrant pigtail, Cabrera catheter Chest x-ray 11/26/18 revealed mild cardiomegaly with volume overload 2D echo on admission revealed no vegetations Physical examination: GEN: Fragile well-developed elderly woman, who is alert in no distress. HENT: Head atraumatic normocephalic, sclera nonicteric. Neck is supple PULM: chest rise symmetrical breath sounds diminished bases. Heart: S1-S2. Abdomen: soft bowel sounds present Extremities: no cyanosis Assessment: 1. Sepsis, present on admission 2. Strep bacteremia 3. Strep urinary tract infection 4. Cholecystitis, status post CT-guided cholecystostomy catheter placement 5. Non-ST elevation [place] Plan: Remains stable. Continue current abx for 7 more days. Requesting Provider: JOE MUNOZ Date/Time of Note DATE: 12/02/18 TIME: 15:41 Exam/Review of Systems Exam Vitals Vital Signs Date Temp Pulse Resp B/P (MAP) Pulse Ox O2 O2 Flow FiO2 Time Delivery Rate 12/02/18 98.3 79 18 129/61 100 Room Air 14:52 (83) 12/02/18 2.0 10:25 Intake and Output 12/01/18 12/01/18 12/02/18 1515:00 23:00 07:00 IntakeIntake Total 20 ml 50 ml OutputOutput Total 460 ml 560 ml BalanceBalance 20 ml -410 ml -560 ml Medications Medication Current Medications IV Flush (NS 3 ml) 3 ml PER PROTOCOL IV ; Start 11/26/18 at 00:00 Ondansetron HCl (Zofran Inj) 4 mg Q6H PRN IV NAUSEA/VOMITING; Start 11/26/18 at 00:00 Acetaminophen (Tylenol Tab) 650 mg Q6H PRN PO .PAIN 1-3 OR TEMP Last administered on 11/29/18at 22:04; Admin Dose 650 MG; Start 11/26/18 at 00:00 Docusate Sodium (Colace) 100 mg Q12H PRN PO .CONSTIPATION Last administered on 11/29/18 16:12; Admin Dose 100 MG; Start 11/26/18 at 00:00 Bisacodyl (Dulcolax) 5 mg DAILY PRN PO .CONSTIPATION Last administered on 12/01/18 05:42; Admin Dose 5 MG; Start 11/26/18 at 00:00 Aspirin (Aspirin) 81 mg DAILY PO Last administered on 12/02/18 09:07; Admin Dose 81 MG; Start 11/27/18 at 09:00 Atorvastatin Calcium (Lipitor) 20 mg HS PO Last administered on 12/01/18 21:17; Admin Dose 20 MG; Start 11/26/18 at 21:00 Collagenase (Santyl) 1 applic DAILY TOP Last administered on 12/02/18 09:08; Admin Dose 1 APPLIC; Start 11/28/18 at 09:00 Furosemide (Lasix) 20 mg DAILY PO Last administered on 12/02/18 09:07; Admin Dose 20 MG; Start 11/29/18 at 09:00 Ceftriaxone Sodium 50 ml @ 100 mls/hr Q24H IVPB Last administered on 12/02/18 14:34; Admin Dose 100 MLS/HR; Start 11/29/18 at 14:00 Multivitamins/ Minerals (Theragran-M) 1 tab DAILY PO Last administered on 12/02/18 09:07; Admin Dose 1 TAB; Start 12/01/18 at 09:00 Ascorbic Acid (Vitamin C) 250 mg DAILY PO Last administered on 12/02/18 09:06; Admin Dose 250 MG; Start 12/01/18 at 09:00; Stop 12/11/18 at 09:00 Zinc Sulfate (Zinc Sulfate) 220 mg DAILY PO Last administered on 12/02/18 09:07; Admin Dose 220 MG; Start 12/01/18 at 09:00; Stop 12/11/18 at 09:00 CELIA MULLIGAN Dec 02, 2018 15:44
[2018-12-02 19:30] VITALS: BP 129/60; PULSE 79; RESP 18
[2018-12-02] MEDS: ATORVASTATIN 20 MG TAB PO SCH (21:28)
[2018-12-03] VITALS (12 sets, daily range): BP systolic 104–141; BP diastolic 55–73; PULSE 72–83; RESP 16–22
[2018-12-03] MEDS: ASCORBIC ACID 250 MG TAB PO SCH (09:00)
[2018-12-03] MEDS: FUROSEMIDE 20 MG TAB PO SCH (09:00)
[2018-12-03] MEDS: ASPIRIN 81 MG TAB PO SCH (09:00)
[2018-12-03] MEDS: ZINC SULFATE 220 MG CAP PO SCH (09:00)
[2018-12-03] MEDS: MULTIVITAMINS/MINERALS TAB PO SCH (09:00)
[2018-12-03] MEDS: BALSAM PERU/CASTOR OIL 60 GM TUBE TOP SCH ×2 (09:43→20:36)
[2018-12-03] MEDS: COLLAGENASE 5 GM (UD JAR) TOP SCH (10:02)
--- NOTE | 2018-12-03 12:46 | CONS ---
Consultation Date/Type/Reason Admit Date/Time Nov 25, 2018 at 23:49 Initial Consult Date SUBJECTIVE: No acute events over night. Pt looks comfortable. VS: stable T: 98.0 LABS: reviewed. Blood cultures and urine cx on admission grew strep agalactiae gallbladder fluid culture also growing strep agalactiae. Repeat blood cultures negative Antimicrobials: Rocephin Indwelling: Right upper quadrant pigtail, Cabrera catheter Chest x-ray 11/26/18 revealed mild cardiomegaly with volume overload 2D echo on admission revealed no vegetations Physical examination: GEN: Fragile well-developed elderly woman, who is alert in no distress. HENT: Head atraumatic normocephalic, sclera nonicteric. Neck is supple PULM: chest rise symmetrical breath sounds diminished bases. Heart: S1-S2. Abdomen: soft bowel sounds present Extremities: no cyanosis Assessment: 1. Sepsis, present on admission 2. Strep bacteremia 3. Strep urinary tract infection 4. Cholecystitis, status post CT-guided cholecystostomy catheter placement 5. Non-ST elevation [place] Plan: Remains stable. Continue current abx for 6 more days. Requesting Provider: JOE MUNOZ Date/Time of Note DATE: 12/03/18 TIME: 12:45 Exam/Review of Systems Exam Vitals Vital Signs Date Temp Pulse Resp B/P (MAP) Pulse Ox O2 O2 Flow FiO2 Time Delivery Rate 12/03/18 73 11:55 12/03/18 Nasal 5.0 11:37 Cannula 12/03/18 98.0 18 104/73 96 11:27 (83) Intake and Output 12/02/18 12/02/18 12/03/18 1515:00 23:00 07:00 IntakeIntake Total 400 ml 250 ml 100 ml OutputOutput Total 575 ml 500 ml BalanceBalance 400 ml -325 ml -400 ml Results Results 24hrs Laboratory Tests Test 12/03/18 09:44 Blood Gas Specimen Source Blood arterial Arterial Blood Date Drawn 12/03/2018 10:09:49 AM Arterial Blood pH (Temp corrected) 7.297 *L Arterial Blood pCO2 (Temp correct) 61.3 H Arterial Blood pO2 (Temp corrected) 160.4 H Arterial Blood HCO3 29.3 H Arterial Blood Base Excess 1.5 Arterial Blood Oxygen Saturation 98.8 Roberto Test ACCEPTAB Arterial Blood Gas Puncture Site Right Radial Arterial Blood Carboxyhemoglobin 0.4 Arterial Blood Methemoglobin 0.2 Blood Gas A-a O2 Differential 25.2 H Oxyhemoglobin Percent 98.2 Blood Gas Temperature 37.0 Blood Gas Modality NASAL CANNULA FiO2 36.0 Blood Gas Critical Value Read Back ABY OLVERA Blood Gas Notified Whom AT Blood Gas Notified Time 12/03/2018 10:20:05 AM Medications Medication Current Medications IV Flush (NS 3 ml) 3 ml PER PROTOCOL IV ; Start 11/26/18 at 00:00 Ondansetron HCl (Zofran Inj) 4 mg Q6H PRN IV NAUSEA/VOMITING; Start 11/26/18 at 00:00 Acetaminophen (Tylenol Tab) 650 mg Q6H PRN PO .PAIN 1-3 OR TEMP Last administered on 11/29/18 22:04; Admin Dose 650 MG; Start 11/26/18 at 00:00 Docusate Sodium (Colace) 100 mg Q12H PRN PO .CONSTIPATION Last administered on 11/29/18 16:12; Admin Dose 100 MG; Start 11/26/18 at 00:00 Bisacodyl (Dulcolax) 5 mg DAILY PRN PO .CONSTIPATION Last administered on 12/01/18 05:42; Admin Dose 5 MG; Start 11/26/18 at 00:00 Aspirin (Aspirin) 81 mg DAILY PO Last administered on 12/02/18 09:07; Admin Dose 81 MG; Start 11/27/18 at 09:00 Atorvastatin Calcium (Lipitor) 20 mg HS PO Last administered on 12/02/18 21:28; Admin Dose 20 MG; Start 11/26/18 at 21:00 Collagenase (Santyl) 1 applic DAILY TOP Last administered on 12/03/18 10:02; Admin Dose 1 APPLIC; Start 11/28/18 at 09:00 Furosemide (Lasix) 20 mg DAILY PO Last administered on 12/02/18 09:07; Admin Dose 20 MG; Start 11/29/18 at 09:00 Ceftriaxone Sodium 50 ml @ 100 mls/hr Q24H IVPB Last administered on 12/02/18 14:34; Admin Dose 100 MLS/HR; Start 11/29/18 at 14:00 Multivitamins/ Minerals (Theragran-M) 1 tab DAILY PO Last administered on 4/13/19at 09:07; Admin Dose 1 TAB; Start 12/01/18 at 09:00 Ascorbic Acid (Vitamin C) 250 mg DAILY PO Last administered on 12/02/18at 09:06; Admin Dose 250 MG; Start 12/01/18 at 09:00; Stop 12/11/18 at 09:00 Zinc Sulfate (Zinc Sulfate) 220 mg DAILY PO Last administered on 12/02/18at 09:07; Admin Dose 220 MG; Start 12/01/18 at 09:00; Stop 12/11/18 at 09:00 CELIA MULLIGAN Dec 03, 2018 12:46
[2018-12-03] MEDS: CEFTRIAXONE 1 GM/50 ML (PMX) 50 ML IVPB SCH (14:15)
--- NOTE | 2018-12-03 18:44 | PN ---
Date/Time of Note Date/Time of Note DATE: 12/03/18 TIME: 18:41 Assessment/Plan VTE Prophylaxis Risk score (from Ns)>0 risk: 11 SCD applied (from Ns): Yes Pharmacological prophylaxis: NA/contraindicated Pharm contraindication: other Lines/Catheters IV Catheter Type (from [facility]): Saline Lock Assessment/Plan Hospital Course 88 yo female with dementia who presented with respiratory distress and hypotension. Found to have systolic CHF, , bacteremia and cholecystitis Acute on chronic encephalopathy Patient with acute worsening of mentation likely secondary to hypercapnia and delirium from prolonged hospitalization Patient with baseline end-stage dementia ABG is consistent with hypercapnia, pulmonology consultation obtained Continue BiPAP, repeat ABG ordered Placement in senior care facility is pending, patient was previously in a board and care Acute systolic CHF with causing b/l pleural effusions and respiratory fail ure: -Continue statin, Lasix and aspirin -No beta-don secondary to bradycardia -Cardiology consultation appreciated Bacteremia secondary to cholecystitis -Status post vancomycin and cefepime -Continue Rocephin -Blood cultures show group B strep, gallbladder fluid culture also is consistent with group B strep Repeat blood cultures are now negative -Status post cholecystostomy -ID consultation appreciated NSTEMI: Type II -Cardiology consultation appreciated, continue aspirin and statin, no beta-don secondary to bradycardia DC planning: warehouse distribution manager working on placement Results 24hrs Laboratory Tests Test 12/03/18 09:44 Blood Gas Specimen Source Blood arterial Arterial Blood Date Drawn 12/03/2018 10:09:49 AM Arterial Blood pH (Temp corrected) 7.297 *L Arterial Blood pCO2 (Temp correct) 61.3 H Arterial Blood pO2 (Temp corrected) 160.4 H Arterial Blood HCO3 29.3 H Arterial Blood Base Excess 1.5 Arterial Blood Oxygen Saturation 98.8 Roberto Test ACCEPTAB Arterial Blood Gas Puncture Site Right Radial Arterial Blood Carboxyhemoglobin 0.4 Arterial Blood Methemoglobin 0.2 Blood Gas A-a O2 Differential 25.2 H Oxyhemoglobin Percent 98.2 Blood Gas Temperature 37.0 Blood Gas Modality NASAL CANNULA FiO2 36.0 Blood Gas Critical Value Read Back ABY OLVERA Blood Gas Notified Whom AT Blood Gas Notified Time 12/03/2018 10:20:05 AM Subjective 24 Hr Interval Summary Constitutional: disoriented Exam/Review of Systems Exam Vitals Vital Signs Date Temp Pulse Resp B/P (MAP) Pulse Ox O2 O2 Flow FiO2 Time Delivery Rate 12/03/18 75 100 50 17:08 12/03/18 BIPAP 16:07 12/03/18 97.4 22 141/55 15:55 (83) 12/03/18 5.0 11:37 Intake and Output 12/02/18 12/02/18 12/03/18 1515:00 23:00 07:00 IntakeIntake Total 400 ml 250 ml 100 ml OutputOutput Total 575 ml 500 ml BalanceBalance 400 ml -325 ml -400 ml Psych: confusion Respiratory: clear to auscultation Cardiovascular: regular rate and rhythm Gastrointestinal: soft; No distended Musculoskeletal: nl extremities to inspection Results Results 24hrs Laboratory Tests Test 12/03/18 09:44 Blood Gas Specimen Source Blood arterial Arterial Blood Date Drawn 12/03/2018 10:09:49 AM Arterial Blood pH (Temp corrected) 7.297 *L Arterial Blood pCO2 (Temp correct) 61.3 H Arterial Blood pO2 (Temp corrected) 160.4 H Arterial Blood HCO3 29.3 H Arterial Blood Base Excess 1.5 Arterial Blood Oxygen Saturation 98.8 Roberto Test ACCEPTAB Arterial Blood Gas Puncture Site Right Radial Arterial Blood Carboxyhemoglobin 0.4 Arterial Blood Methemoglobin 0.2 Blood Gas A-a O2 Differential 25.2 H Oxyhemoglobin Percent 98.2 Blood Gas Temperature 37.0 Blood Gas Modality NASAL CANNULA FiO2 36.0 Blood Gas Critical Value Read Back ABY OLVERA Blood Gas Notified Whom AT Blood Gas Notified Time 12/03/2018 10:20:05 AM Medications Medication Current Medications IV Flush (NS 3 ml) 3 ml PER PROTOCOL IV ; Start 11/26/18 at 00:00 Ondansetron HCl (Zofran Inj) 4 mg Q6H PRN IV NAUSEA/VOMITING; Start 11/26/18 at 00:00 Acetaminophen (Tylenol Tab) 650 mg Q6H PRN PO .PAIN 1-3 OR TEMP Last administered on 11/29/18at 22:04; Admin Dose 650 MG; Start 11/26/18 at 00:00 Docusate Sodium (Colace) 100 mg Q12H PRN PO .CONSTIPATION Last administered on 11/29/18at 16:12; Admin Dose 100 MG; Start 11/26/18 at 00:00 Bisacodyl (Dulcolax) 5 mg DAILY PRN PO .CONSTIPATION Last administered on 12/01/18 05:42; Admin Dose 5 MG; Start 11/26/18 at 00:00 Aspirin (Aspirin) 81 mg DAILY PO Last administered on 12/02/18 09:07; Admin Dose 81 MG; Start 11/27/18 at 09:00 Atorvastatin Calcium (Lipitor) 20 mg HS PO Last administered on 12/02/18 21:28; Admin Dose 20 MG; Start 11/26/18 at 21:00 Collagenase (Santyl) 1 applic DAILY TOP Last administered on 12/03/18 10:02; Admin Dose 1 APPLIC; Start 11/28/18 at 09:00 Furosemide (Lasix) 20 mg DAILY PO Last administered on 12/02/18 09:07; Admin Dose 20 MG; Start 11/29/18 at 09:00 Ceftriaxone Sodium 50 ml @ 100 mls/hr Q24H IVPB Last administered on 12/03/18 14:15; Admin Dose 100 MLS/HR; Start 11/29/18 at 14:00 Multivitamins/ Minerals (Theragran-M) 1 tab DAILY PO Last administered on 12/02/18 09:07; Admin Dose 1 TAB; Start 12/01/18 at 09:00 Ascorbic Acid (Vitamin C) 250 mg DAILY PO Last administered on 12/02/18 09:06; Admin Dose 250 MG; Start 12/01/18 at 09:00; Stop 12/11/18 at 09:00 Zinc Sulfate (Zinc Sulfate) 220 mg DAILY PO Last administered on 12/02/18 09:07; Admin Dose 220 MG; Start 12/01/18 at 09:00; Stop 12/11/18 at 09:00 SHAY SANTILLAN Dec 03, 2018 18:44
[2018-12-03] MEDS: ATORVASTATIN 20 MG TAB PO SCH (20:37)
[2018-12-04] VITALS (23 sets, daily range): BP systolic 90–129; BP diastolic 49–63; PULSE 57–83; RESP 16–20
[2018-12-04] MEDS: BALSAM PERU/CASTOR OIL 60 GM TUBE TOP SCH ×2 (08:26→21:06)
[2018-12-04] MEDS: FUROSEMIDE 20 MG TAB PO SCH (08:26)
[2018-12-04] MEDS: MULTIVITAMINS/MINERALS TAB PO SCH (08:26)
[2018-12-04] MEDS: ASPIRIN 81 MG TAB PO SCH (08:26)
[2018-12-04] MEDS: ASCORBIC ACID 250 MG TAB PO SCH (08:26)
[2018-12-04] MEDS: COLLAGENASE 5 GM (UD JAR) TOP SCH (08:26)
[2018-12-04] MEDS: ZINC SULFATE 220 MG CAP PO SCH (08:26)
[2018-12-04] MEDS ORDERED: LORAZEPAM 2 MG INJ ONE (12:40)
[2018-12-04] MEDS ORDERED: LEVETIRACETAM 1000 MG (PMX) 100 ML IVPB STA (12:42)
[2018-12-04] MEDS ORDERED: LORAZEPAM 2 MG INJ IV ONE (13:00)
[2018-12-04] MEDS: ALBUTEROL/IPRATROPIUM (NEB) 3 ML AMP HHN SCH ×3 (13:53→20:24)
[2018-12-04] MEDS: CEFTRIAXONE 1 GM/50 ML (PMX) 50 ML IVPB SCH (14:45)
--- NOTE | 2018-12-04 14:52 | CONS ---
Assessment/Plan Assessment/Plan Hospital Course (Demo Recall) Patient is noncommunicative and unarousable, no fevers overnight, no acute events overnight per report. WBC 12 platelets 75 neutrophils 90.5 BUN [address] of the brain this morning revealed no acute intracranial abnormalities Blood cultures and urine cx on admission grew strep agalactiae gallbladder fluid culture also growing strep agalactiae, repeat blood cultures negative Antimicrobials: Rocephin Indwelling: Right upper quadrant pigtail, Cabrera catheter Physical examination: Fragile well-developed elderly woman in no acute distress. Head atraumatic normocephalic sclera nonicteric. Neck is supple chest rise symmetrical breath sounds diminished bases. Heart: S1-S2. Abdomen soft bowel sounds present extremities without cyanosis Assessment: 1. Acute encephalopathy, rule out CVA versus other 1. Sepsis, present on admission 2. Strep bacteremia 3. Strep urinary tract infection 4. Cholecystitis, status post CT-guided cholecystostomy catheter placement 5. Non-ST elevation [place] Plan: CT of the brain noted, will order chest x-ray and repeat cultures consider neurology evaluation Consultation Date/Type/Reason Admit Date/Time Nov 25, 2018 at 23:49 Initial Consult Date 11/26/18 Type of Consult id Requesting Provider: JOE MUNOZ Date/Time of Note DATE: 12/04/18 TIME: 14:51 Exam/Review of Systems Exam Vitals Vital Signs Date Temp Pulse Resp B/P (MAP) Pulse Ox O2 O2 Flow FiO2 Time Delivery Rate 12/04/18 68 100 30 14:15 12/04/18 3.0 14:01 12/04/18 17 Nasal 14:00 Cannula 12/04/18 129/52 13:11 (77) 12/04/18 98.0 11:51 Intake and Output 12/03/18 12/03/18 12/04/18 1515:00 23:00 07:00 IntakeIntake Total 50 ml OutputOutput Total 10 ml 400 ml BalanceBalance 40 ml -400 ml Results Result Diagram: 12/04/18 0546 12/04/18 0546 Results 24hrs Laboratory Tests Test 12/03/18 18:42 12/04/18 05:46 12/04/18 12:15 12/04/18 12:18 Blood Gas Blood arterial Blood arterial Specimen Source Arterial Blood 12/03/2018 7:48: 12/04/2018 1:30: Date Drawn 19 PM 46 PM Arterial Blood 7.330 L 7.141 *L pH (Temp corrected) Arterial Blood 52.5 H 83.0 *H pCO2 (Temp correct) Arterial Blood 188.5 H 103.6 H pO2 (Temp corrected) Arterial Blood 27.1 H 27.7 H HCO3 Arterial Blood 0.3 -3.3 L Base Excess Arterial Blood 99.2 97.1 Oxygen Saturatio n Roberto Test ACCEPTAB ACCEPTAB Arterial Blood Right Radial Right Radial Gas Puncture Site Arterial 0.3 0.3 Blood Carboxyhem oglobin Arterial Blood 0.2 0.3 Methemoglobin Blood Gas A-a O2 108.9 H 12.8 Differential Oxyhemoglobin 98.7 96.5 Percent Blood Gas 37.0 37.0 Temperature Blood Gas 16.0 Respiration Rate Blood Gas Actual 27 Respiration Rate Blood Gas MASK - BIPAP NASAL CANNULA Modality FiO2 50.0 30.0 Blood Gas 16/8 IPAP/EPAP Ratio Blood Gas R KENNEY TM Notified Whom Blood Gas 12/03/2018 7:59: 12/04/2018 1:39: Notified Time 38 PM 45 PM White Blood 12.0 H Count Red Blood Count 4.22 Hemoglobin 12.9 Hematocrit 42.5 Mean Corpuscular 100.7 Volume Mean Corpuscular 30.6 Hemoglobin Mean Corpuscular 30.4 L Hemoglobin Sarita nt Red Cell 16.6 H Distribution Width Platelet Count 75 #L Mean Platelet 10.9 H Volume Immature 0.900 H Granulocytes % Neutrophils % 90.5 H Lymphocytes % 4.0 L Monocytes % 4.2 Eosinophils % 0.2 Basophils % 0.2 Nucleated Red 0.0 Blood Cells % Immature 0.110 H Granulocytes # Neutrophils # 10.9 H Lymphocytes # 0.5 L Monocytes # 0.5 Eosinophils # 0.0 Basophils # 0.0 Nucleated Red 0.0 Blood Cells # Sodium Level 144 Potassium Level 5.4 H Chloride Level 110 Carbon Dioxide 27 Level Anion Gap 7 Blood Urea 41 H Nitrogen Creatinine 0.74 Est Glomerular Filtrat Rate mL/min Glucose Level 91 Calcium Level 9.2 Phosphorus Level 5.3 H Magnesium Level 2.3 Blood Gas LKEIT RN Critical Value Read Back Bedside Glucose 98 Medications Medication Current Medications IV Flush (NS 3 ml) 3 ml PER PROTOCOL IV ; Start 11/26/18 at 00:00 Ondansetron HCl (Zofran Inj) 4 mg Q6H PRN IV NAUSEA/VOMITING; Start 11/26/18 at 00:00 Acetaminophen (Tylenol Tab) 650 mg Q6H PRN PO .PAIN 1-3 OR TEMP Last administered on 11/29/18 22:04; Admin Dose 650 MG; Start 11/26/18 at 00:00 Docusate Sodium (Colace) 100 mg Q12H PRN PO .CONSTIPATION Last administered on 11/29/18 16:12; Admin Dose 100 MG; Start 11/26/18 at 00:00 Bisacodyl (Dulcolax) 5 mg DAILY PRN PO .CONSTIPATION Last administered on 12/01/18 05:42; Admin Dose 5 MG; Start 11/26/18 at 00:00 Aspirin (Aspirin) 81 mg DAILY PO Last administered on 12/02/18 09:07; Admin Dose 81 MG; Start 11/27/18 at 09:00 Atorvastatin Calcium (Lipitor) 20 mg HS PO Last administered on 12/02/18 21:28; Admin Dose 20 MG; Start 11/26/18 at 21:00 Collagenase (Santyl) 1 applic DAILY TOP Last administered on 12/03/18 10:02; Admin Dose 1 APPLIC; Start 11/28/18 at 09:00 Ceftriaxone Sodium 50 ml @ 100 mls/hr Q24H IVPB Last administered on 12/04/18 14:45; Admin Dose 100 MLS/HR; Start 11/29/18 at 14:00 Multivitamins/ Minerals (Theragran-M) 1 tab DAILY PO Last administered on 12/02/18 09:07; Admin Dose 1 TAB; Start 12/01/18 at 09:00 Ascorbic Acid (Vitamin C) 250 mg DAILY PO Last administered on 12/02/18 09:06; Admin Dose 250 MG; Start 12/01/18 at 09:00; Stop 12/11/18 at 09:00 Zinc Sulfate (Zinc Sulfate) 220 mg DAILY PO Last administered on 12/02/18 09:07; Admin Dose 220 MG; Start 12/01/18 at 09:00; Stop 12/11/18 at 09:00 Albuterol/ Ipratropium (Duoneb) 3 ml Q6H RESP THERAPY HHN Last administered on 12/04/18at 13:54; Admin Dose 3 ML; Start 12/04/18 at 11:00 Furosemide (Lasix) 20 mg BID PO ; Start 12/04/18 at 21:00 DAYAN DENT NP Dec 04, 2018 14:52
--- NOTE | 2018-12-04 15:06 | PN ---
Date/Time of Note Date/Time of Note DATE: 12/04/18 TIME: 15:04 Assessment/Plan VTE Prophylaxis Risk score (from Ns)>0 risk: 11 SCD applied (from Nsg): Yes Pharmacological prophylaxis: heparin Lines/Catheters IV Catheter Type (from Nrsg): Saline Lock Urinary Cath still in place: Yes Reason Cath still needed: urinary retention Assessment/Plan Hospital Course EXAM: Breathing comfortably Mild tachypnea + JVD 2/6 systolic murmur Tachypneic, nonlabored Abdomen soft, mild tenderness to deep palpation in RUQ No peripheral edema A/P: 88 yo female with dementia who presented with respiratory distress and hypotension. Found to have systolic CHF, , bacteremia and cholecystitis Acute systolic CHF with causing b/l pleural effusions and respiratory failure: - Continue diuretics Seizure: - Dr Courtney consulted - Ativan PRN - Keppra given Acute on chornic hypercapneic respiratoyr failure: - Contionue BIPAP, bronchodilators bacteremia with possible cholecytisis: - Continue abx per ID. s/p C tube Dementia: - Stable NSTEMI: - Likely type II [place] DNR per family Will discuss hospice as poor prognosis Result Diagram: 12/04/18 0546 12/04/18 0546 Results 24hrs Laboratory Tests Test 12/03/18 18:42 12/04/18 05:46 12/04/18 12:15 12/04/18 12:18 Blood Gas Blood arterial Blood arterial Specimen Source Arterial Blood 12/03/2018 7:48: 12/04/2018 1:30: Date Drawn 19 PM 46 PM Arterial Blood 7.330 L 7.141 *L pH (Temp corrected) Arterial Blood 52.5 H 83.0 *H pCO2 (Temp correct) Arterial Blood 188.5 H 103.6 H pO2 (Temp corrected) Arterial Blood 27.1 H 27.7 H HCO3 Arterial Blood 0.3 -3.3 L Base Excess Arterial Blood 99.2 97.1 Oxygen Saturatio n Roberto Test ACCEPTAB ACCEPTAB Arterial Blood Right Radial Right Radial Gas Puncture Site Arterial 0.3 0.3 Blood Carboxyhem oglobin Arterial Blood 0.2 0.3 Methemoglobin Blood Gas A-a O2 108.9 H 12.8 Differential Oxyhemoglobin 98.7 96.5 Percent Blood Gas 37.0 37.0 Temperature Blood Gas 16.0 Respiration Rate Blood Gas Actual 27 Respiration Rate Blood Gas MASK - BIPAP NASAL CANNULA Modality FiO2 50.0 30.0 Blood Gas 16/8 IPAP/EPAP Ratio Blood Gas R KENNEY TM Notified Whom Blood Gas 12/03/2018 7:59: 12/04/2018 1:39: Notified Time 38 PM 45 PM White Blood 12.0 H Count Red Blood Count 4.22 Hemoglobin 12.9 Hematocrit 42.5 Mean Corpuscular 100.7 Volume Mean Corpuscular 30.6 Hemoglobin Mean Corpuscular 30.4 L Hemoglobin Sarita nt Red Cell 16.6 H Distribution Width Platelet Count 75 #L Mean Platelet 10.9 H Volume Immature 0.900 H Granulocytes % Neutrophils % 90.5 H Lymphocytes % 4.0 L Monocytes % 4.2 Eosinophils % 0.2 Basophils % 0.2 Nucleated Red 0.0 Blood Cells % Immature 0.110 H Granulocytes # Neutrophils # 10.9 H Lymphocytes # 0.5 L Monocytes # 0.5 Eosinophils # 0.0 Basophils # 0.0 Nucleated Red 0.0 Blood Cells # Sodium Level 144 Potassium Level 5.4 H Chloride Level 110 Carbon Dioxide 27 Level Anion Gap 7 Blood Urea 41 H Nitrogen Creatinine 0.74 Est Glomerular Filtrat Rate mL/min Glucose Level 91 Calcium Level 9.2 Phosphorus Level 5.3 H Magnesium Level 2.3 Blood Gas [facility] RN Critical Value Read Back Bedside Glucose 98 Subjective 24 Hr Interval Summary Free Text/Dictation [employer] called for nonresponsiveness and seizure activity Patient with twitching of face and rhymthic eye motions. Given 2 mg ativan. Taken to CT scan. No acute pathology Exam/Review of Systems Exam Vitals Vital Signs Date Temp Pulse Resp B/P (MAP) Pulse Ox O2 O2 Flow FiO2 Time Delivery Rate 12/04/18 68 100 30 14:15 12/04/18 3.0 14:01 12/04/18 17 Nasal 14:00 Cannula 12/04/18 129/52 13:11 (77) 12/04/18 98.0 11:51 Intake and Output 12/03/18 12/03/18 12/04/18 1515:00 23:00 07:00 IntakeIntake Total 50 ml OutputOutput Total 10 ml 400 ml BalanceBalance 40 ml -400 ml Results Results 24hrs Laboratory Tests Test 12/03/18 18:42 12/04/18 05:46 12/04/18 12:15 12/04/18 12:18 Blood Gas Blood arterial Blood arterial Specimen Source Arterial Blood 12/03/2018 7:48: 12/04/2018 1:30: Date Drawn 19 PM 46 PM Arterial Blood 7.330 L 7.141 *L pH (Temp corrected) Arterial Blood 52.5 H 83.0 *H pCO2 (Temp correct) Arterial Blood 188.5 H 103.6 H pO2 (Temp corrected) Arterial Blood 27.1 H 27.7 H HCO3 Arterial Blood 0.3 -3.3 L Base Excess Arterial Blood 99.2 97.1 Oxygen Saturatio n Roberto Test ACCEPTAB ACCEPTAB Arterial Blood Right Radial Right Radial Gas Puncture Site Arterial 0.3 0.3 Blood Carboxyhem oglobin Arterial Blood 0.2 0.3 Methemoglobin Blood Gas A-a O2 108.9 H 12.8 Differential Oxyhemoglobin 98.7 96.5 Percent Blood Gas 37.0 37.0 Temperature Blood Gas 16.0 Respiration Rate Blood Gas Actual 27 Respiration Rate Blood Gas MASK - BIPAP NASAL CANNULA Modality FiO2 50.0 30.0 Blood Gas 16/8 IPAP/EPAP Ratio Blood Gas R KENNEY TM Notified Whom Blood Gas 12/03/2018 7:59: 12/04/2018 1:39: Notified Time 38 PM 45 PM White Blood 12.0 H Count Red Blood Count 4.22 Hemoglobin 12.9 Hematocrit 42.5 Mean Corpuscular 100.7 Volume Mean Corpuscular 30.6 Hemoglobin Mean Corpuscular 30.4 L Hemoglobin Sarita nt Red Cell 16.6 H Distribution Width Platelet Count 75 #L Mean Platelet 10.9 H Volume Immature 0.900 H Granulocytes % Neutrophils % 90.5 H Lymphocytes % 4.0 L Monocytes % 4.2 Eosinophils % 0.2 Basophils % 0.2 Nucleated Red 0.0 Blood Cells % Immature 0.110 H Granulocytes # Neutrophils # 10.9 H Lymphocytes # 0.5 L Monocytes # 0.5 Eosinophils # 0.0 Basophils # 0.0 Nucleated Red 0.0 Blood Cells # Sodium Level 144 Potassium Level 5.4 H Chloride Level 110 Carbon Dioxide 27 Level Anion Gap 7 Blood Urea 41 H Nitrogen Creatinine 0.74 Est Glomerular Filtrat Rate mL/min Glucose Level 91 Calcium Level 9.2 Phosphorus Level 5.3 H Magnesium Level 2.3 Blood Gas [facility] RN Critical Value Read Back Bedside Glucose 98 Medications Medication Current Medications IV Flush (NS 3 ml) 3 ml PER PROTOCOL IV ; Start 11/26/18 at 00:00 Ondansetron HCl (Zofran Inj) 4 mg Q6H PRN IV NAUSEA/VOMITING; Start 11/26/18 at 00:00 Acetaminophen (Tylenol Tab) 650 mg Q6H PRN PO .PAIN 1-3 OR TEMP Last administered on 11/29/18 22:04; Admin Dose 650 MG; Start 11/26/18 at 00:00 Docusate Sodium (Colace) 100 mg Q12H PRN PO .CONSTIPATION Last administered on 11/29/18 16:12; Admin Dose 100 MG; Start 11/26/18 at 00:00 Bisacodyl (Dulcolax) 5 mg DAILY PRN PO .CONSTIPATION Last administered on 12/01/18 05:42; Admin Dose 5 MG; Start 11/26/18 at 00:00 Aspirin (Aspirin) 81 mg DAILY PO Last administered on 12/02/18 09:07; Admin Dose 81 MG; Start 11/27/18 at 09:00 Atorvastatin Calcium (Lipitor) 20 mg HS PO Last administered on 12/02/18 21:28; Admin Dose 20 MG; Start 11/26/18 at 21:00 Collagenase (Santyl) 1 applic DAILY TOP Last administered on 12/03/18 10:02; Admin Dose 1 APPLIC; Start 11/28/18 at 09:00 Ceftriaxone Sodium 50 ml @ 100 mls/hr Q24H IVPB Last administered on 12/04/18 14:45; Admin Dose 100 MLS/HR; Start 11/29/18 at 14:00 Multivitamins/ Minerals (Theragran-M) 1 tab DAILY PO Last administered on 12/02/18 09:07; Admin Dose 1 TAB; Start 12/01/18 at 09:00 Ascorbic Acid (Vitamin C) 250 mg DAILY PO Last administered on 12/02/18 09:06; Admin Dose 250 MG; Start 12/01/18 at 09:00; Stop 12/11/18 at 09:00 Zinc Sulfate (Zinc Sulfate) 220 mg DAILY PO Last administered on 12/02/18 09:07; Admin Dose 220 MG; Start 12/01/18 at 09:00; Stop 12/11/18 at 09:00 Albuterol/ Ipratropium (Duoneb) 3 ml Q6H RESP THERAPY HHN Last administered on 12/04/18at 13:54; Admin Dose 3 ML; Start 12/04/18 at 11:00 Furosemide (Lasix) 20 mg BID PO ; Start 12/04/18 at 21:00 SCOTT JAIME MD Dec 04, 2018 15:06
[2018-12-04] MEDS: FUROSEMIDE 20 MG INJ IV SCH (17:21)
--- NOTE | 2018-12-04 17:51 | CONS ---
DATE OF ADMISSION: 11/25/2018 DATE OF CONSULTATION: TYPE OF CONSULTATION: Pulmonary. REASON FOR CONSULTATION: Shortness of breath. Thank you, Dr. Wooten, for this consultation. HISTORY OF PRESENT ILLNESS: This is an 88-year-old lady originally admitted with worsening encephalo lissett, non-ST elevation [place], significant lactic acidosis, code status of DNR/DNI, has been apparently declining for short period of time. On admission, she was found to have significant hypoxemia with b ilateral pleural effusions requiring noninvasive positive pressure ventilation. The patient of note is DNR/DNI. She has a history of congestive cardiac failure with aortic stenosis and recently compli cated by cholecystitis and bacteremia. Blood cultures were positive for group B streptococcus. The patient's condition remains guarded. PAST MEDICAL HISTORY: As above. MEDICATIONS: Per chart. ALLERGIES: NONE. SOCIAL HISTORY: Nonsmoker, no alcohol, no history of drug use. FAMILY HISTORY: Noncontributory. SYSTEMS REVIEW: A 12-point review of systems was negative other than that mentioned above. PHYSICAL EXAMINATION: GENERAL: Elderly-appearing lady on supplemental O2. VITAL SIGNS: Currently afebrile, pulse is 80, blood pressure 129/52, O2 saturation 96% on 3 liters' nasal cannula. NECK: Supple. No JVD or lymphadenopathy. CARDIAC: S1, S2. II/ systolic ejection murmur. CHEST: Diminished air entry bilaterally. ABDOMEN: Soft, nontender. No guarding or rebound. EXTREMITIES: No cyanosis, clubbing. A 2+ edema. NEUROLOGIC: Generalized weakness. LABORATORIES: White count 12, hemoglobin 12.9, platelets of 75. BUN 41, creatinine 0.47. Troponin at 1.8. ABG this morning: pH 7.14, pCO2 of 83, pO2 of 103. Currently, the patient is DNR/DNI. IMPRESSION AND PLAN: 1. Acute hypoxemic and hypercapnic respiratory failure. 2. Congestive cardiac failure with pleural effusion. 3. Group B sepsis. The patient will require: 1. Continue antibiotics. 2. Diuresis if tolerated. 3. Noninvasive positive pressure ventilation. 4. DVT and GI prophylaxis. 5. Discussion with family regarding goals of care. Currently, the patient is DNR; however, conditio n remains guarded. Dictated By: BEAU MARTINS MD SV/SHREYAS Conf#: [id number] [facility]#: [id number] CC: SCOTT JAIME MD; JOE MUNOZ MD;*[facility]*
[2018-12-04] MEDS ORDERED: FUROSEMIDE 20 MG TAB PO SCH (21:00)
[2018-12-04] MEDS: ATORVASTATIN 20 MG TAB PO SCH (21:00)
[2018-12-05] VITALS (16 sets, daily range): BP systolic 90–100; BP diastolic 46–55; PULSE 59–87; RESP 17–18
[2018-12-05] MEDS: ALBUTEROL/IPRATROPIUM (NEB) 3 ML AMP HHN SCH ×3 (01:23→14:10)
[2018-12-05] MEDS: FUROSEMIDE 20 MG INJ IV SCH (05:23)
--- NOTE | 2018-12-05 07:10 | CONS ---
Assessment/Plan Assessment/Plan Assessment/Plan (Daily) Acute hypoxic respiratory failure requiring BiPAP Congestive heart failure with pleural effusion Group B sepsis Seizure disorder Alzheimer's dementia Contact family members this morning patient is a candidate for home hospice and general inpatient hospice services. Consultation Date/Type/Reason Admit Date/Time Nov 25, 2018 at 23:49 Date/Time of Note DATE: 12/05/18 TIME: 07:09 Hx of Present Illness Dictating a palliative care consultation on this 88-year-old female who was sent from a [facility] presumably low saturation however in transport she was found to have a O2 saturation in the 90s patient was noted at the time to be in no historian and from information taken from medical records patient has a history of Alzheimer's dementia. Since hospitalization patient decompensated secondary to acute systolic congestive heart failure with tight aortic stenosis developing bilateral pleural effusions and respiratory failure requiring BiPAP. She also noted to have a seizure was seen by neurology and started off on Keppra. She is being treated aggressively for acute on chronic hypercapnic respiratory failure bacteremia possible cholecystitis. I am unable to obtain any information from patient at this time secondary to augmentative impairment and patient having a BiPAP mask placed at this time. It is noted in medical records that Dr. Hawthorne has spoken to family members and obtained a DO NOT RESUSCITATE order. Past Medical History Medical History: congestive heart failure, coronary artery disease Home Meds Active Scripts Furosemide (Lasix) 20 Mg Tab, 20 MG PO DAILY, #60 TAB Prov:SHAY SANTILLAN 11/29/18 Aspirin (Aspirin) 81 Mg Chew, 81 MG PO DAILY, #60 TAB Prov:SHAY SANTILLAN 11/29/18 Atorvastatin Calcium (Atorvastatin Calcium) 20 Mg Tablet, 20 MG PO HS, #60 TAB Prov:SHAY SANTILLAN 11/29/18 Medications Current Medications IV Flush (NS 3 ml) 3 ml PER PROTOCOL IV ; Start 11/26/18 at 00:00 Ondansetron HCl (Zofran Inj) 4 mg Q6H PRN IV NAUSEA/VOMITING; Start 11/26/18 at 00:00 Acetaminophen (Tylenol Tab) 650 mg Q6H PRN PO .PAIN 1-3 OR TEMP Last administered on 11/29/18at 22:04; Admin Dose 650 MG; Start 11/26/18 at 00:00 Docusate Sodium (Colace) 100 mg Q12H PRN PO .CONSTIPATION Last administered on 11/29/18 16:12; Admin Dose 100 MG; Start 11/26/18 at 00:00 Bisacodyl (Dulcolax) 5 mg DAILY PRN PO .CONSTIPATION Last administered on 12/01/18 05:42; Admin Dose 5 MG; Start 11/26/18 at 00:00 Aspirin (Aspirin) 81 mg DAILY PO Last administered on 12/02/18 09:07; Admin Dose 81 MG; Start 11/27/18 at 09:00 Atorvastatin Calcium (Lipitor) 20 mg HS PO Last administered on 12/02/18 21:28; Admin Dose 20 MG; Start 11/26/18 at 21:00 Collagenase (Santyl) 1 applic DAILY TOP Last administered on 12/03/18 10:02; Admin Dose 1 APPLIC; Start 11/28/18 at 09:00 Ceftriaxone Sodium 50 ml @ 100 mls/hr Q24H IVPB Last administered on 12/04/18 14:45; Admin Dose 100 MLS/HR; Start 11/29/18 at 14:00 Multivitamins/ Minerals (Theragran-M) 1 tab DAILY PO Last administered on 12/02/18 09:07; Admin Dose 1 TAB; Start 12/01/18 at 09:00 Ascorbic Acid (Vitamin C) 250 mg DAILY PO Last administered on 12/02/18 09:06; Admin Dose 250 MG; Start 12/01/18 at 09:00; Stop 12/11/18 at 09:00 Zinc Sulfate (Zinc Sulfate) 220 mg DAILY PO Last administered on 12/02/18 09:07; Admin Dose 220 MG; Start 12/01/18 at 09:00; Stop 12/11/18 at 09:00 Albuterol/ Ipratropium (Duoneb) 3 ml Q6H RESP THERAPY HHN Last administered on 12/05/18 01:23; Admin Dose 3 ML; Start 12/04/18 at 11:00 Furosemide (Lasix) 20 mg BID DIURETICS IV Last administered on 12/05/18 05:23; Admin Dose 20 MG; Start 12/04/18 at 18:00 Allergies: Coded Allergies: No Known Allergy (Unverified , 11/25/18) Past Surgical History Past Surgical Hx: no surgical history Social History Alcohol Use: none Smoking Status: Never smoker Drug Use: none Exam/Review of Systems Exam Vitals Vital Signs Date Temp Pulse Resp B/P (MAP) Pulse Ox O2 O2 Flow FiO2 Time Delivery Rate 12/05/18 87 99 30 05:12 12/05/18 97.6 18 92/46 (61) 04:00 12/04/18 BIPAP 17:08 12/04/18 3.0 14:01 Intake and Output 12/04/18 12/04/18 12/05/18 1515:00 23:00 07:00 IntakeIntake Total 100 ml 50 ml OutputOutput Total 410 ml 300 ml 250 ml BalanceBalance -310 ml -250 ml -250 ml Constitutional: distress, frail Head: normocephalic, atraumatic; No lacerations, No hematomas, No other Eyes: nl conjunctiva, EOMI, nl lids, nl sclera, PERRL Respiratory: congested cough, crackles/rales, diminished breath sounds Cardiovascular: regular rate and rhythm, nl pulses Neurological: other (Able to participate in a complete neurological examinatio n) Results Result Diagram: 12/04/18 0546 12/04/18 0546 Results 24hrs Laboratory Tests Test 12/04/18 12:15 12/04/18 12:18 12/04/18 19:00 12/05/18 06:28 Blood Gas Blood arterial Blood arterial Specimen Source Arterial Blood 12/04/2018 1:30: 12/04/2018 7:15: Date Drawn 46 PM 38 PM Arterial Blood 7.141 *L 7.204 *L pH (Temp corrected) Arterial Blood 83.0 *H 69.3 H pCO2 (Temp correct) Arterial Blood 103.6 H 79.9 L pO2 (Temp corrected) Arterial Blood 27.7 H 26.7 H HCO3 Arterial Blood -3.3 L -2.7 Base Excess Arterial Blood 97.1 95.3 Oxygen Saturatio n Roberto Test ACCEPTAB ACCEPTAB Arterial Blood Right Radial Right Radial Gas Puncture Site Arterial 0.3 0.5 Blood Carboxyhem oglobin Arterial Blood 0.3 0.3 Methemoglobin Blood Gas A-a O2 12.8 52.6 H Differential Oxyhemoglobin 96.5 94.5 Percent Blood Gas 37.0 37.0 Temperature Blood Gas NASAL CANNULA MASK - BIPAP Modality FiO2 30.0 30.0 Blood Gas [facility] ABY MELENDEZ RN Critical Value Read Back Blood Gas TM MM Notified Whom Blood Gas 12/04/2018 1:39: 12/04/2018 7:23: Notified Time 45 PM 42 PM Bedside Glucose 98 Blood Gas 20.0 Respiration Rate Blood Gas Actual 20 Respiration Rate Blood Gas 22/8 IPAP/EPAP Ratio White Blood 18.2 #H Count Red Blood Count 4.23 Hemoglobin 13.1 Hematocrit 43.3 Mean Corpuscular 102.4 H Volume Mean Corpuscular 31.0 Hemoglobin Mean Corpuscular 30.3 L Hemoglobin Sarita nt Red Cell 16.8 H Distribution Width Platelet Count 96 #L Mean Platelet 12.8 H Volume Immature 0.800 H Granulocytes % Neutrophils % 90.8 H Lymphocytes % 3.9 L Monocytes % 4.1 Eosinophils % 0.1 Basophils % 0.3 Nucleated Red 0.0 Blood Cells % Immature 0.140 H Granulocytes # Neutrophils # 16.6 H Lymphocytes # 0.7 L Monocytes # 0.8 Eosinophils # 0.0 Basophils # 0.1 Nucleated Red 0.0 Blood Cells # Medications Medication Current Medications IV Flush (NS 3 ml) 3 ml PER PROTOCOL IV ; Start 11/26/18 at 00:00 Ondansetron HCl (Zofran Inj) 4 mg Q6H PRN IV NAUSEA/VOMITING; Start 11/26/18 at 00:00 Acetaminophen (Tylenol Tab) 650 mg Q6H PRN PO .PAIN 1-3 OR TEMP Last administered on 11/29/18 22:04; Admin Dose 650 MG; Start 11/26/18 at 00:00 Docusate Sodium (Colace) 100 mg Q12H PRN PO .CONSTIPATION Last administered on 11/29/18 16:12; Admin Dose 100 MG; Start 11/26/18 at 00:00 Bisacodyl (Dulcolax) 5 mg DAILY PRN PO .CONSTIPATION Last administered on 12/01/18 05:42; Admin Dose 5 MG; Start 11/26/18 at 00:00 Aspirin (Aspirin) 81 mg DAILY PO Last administered on 12/02/18 09:07; Admin Dose 81 MG; Start 11/27/18 at 09:00 Atorvastatin Calcium (Lipitor) 20 mg HS PO Last administered on 12/02/18 21:28; Admin Dose 20 MG; Start 11/26/18 at 21:00 Collagenase (Santyl) 1 applic DAILY TOP Last administered on 12/03/18 10:02; Admin Dose 1 APPLIC; Start 11/28/18 at 09:00 Ceftriaxone Sodium 50 ml @ 100 mls/hr Q24H IVPB Last administered on 12/04/18 14:45; Admin Dose 100 MLS/HR; Start 11/29/18 at 14:00 Multivitamins/ Minerals (Theragran-M) 1 tab DAILY PO Last administered on 12/02/18 09:07; Admin Dose 1 TAB; Start 12/01/18 at 09:00 Ascorbic Acid (Vitamin C) 250 mg DAILY PO Last administered on 12/02/18 09:06; Admin Dose 250 MG; Start 12/01/18 at 09:00; Stop 12/11/18 at 09:00 Zinc Sulfate (Zinc Sulfate) 220 mg DAILY PO Last administered on 12/02/18 09:07; Admin Dose 220 MG; Start 12/01/18 at 09:00; Stop 12/11/18 at 09:00 Albuterol/ Ipratropium (Duoneb) 3 ml Q6H RESP THERAPY HHN Last administered on 12/05/18 01:23; Admin Dose 3 ML; Start 12/04/18 at 11:00 Furosemide (Lasix) 20 mg BID DIURETICS IV Last administered on 12/05/18 05:23; Admin Dose 20 MG; Start 12/04/18 at 18:00 JONATHON ADAMSON Dec 05, 2018 07:10
[2018-12-05] MEDS ORDERED: ALBUMIN HUMAN 25% 100 ML IV SCH (08:30)
[2018-12-05] MEDS: ASCORBIC ACID 250 MG TAB PO SCH (09:00)
[2018-12-05] MEDS: ZINC SULFATE 220 MG CAP PO SCH (09:00)
[2018-12-05] MEDS: ASPIRIN 81 MG TAB PO SCH (09:00)
[2018-12-05] MEDS: MULTIVITAMINS/MINERALS TAB PO SCH (09:00)
--- NOTE | 2018-12-05 11:05 | CONS ---
Assessment/Plan Assessment/Plan Hospital Course 88 yo F with hx of dementia and other comorbidities who presents for evaluation of ams and cardiopulmonary sx. She was additionally noted to have acute cholecystitis, and is s/p C-tube placement On 12/04, she was noted to have multiple seizures, presumably her first of life... for which neurology is consulted. The clinical picture raises concern for an underlying focal [facility] [employer] [employer] lesion.. HCT x 2 has been without obvious acute intracranial pathology. P: MRI brain with and without contrast for further characterization when medically able EEG to exclude subclinical seizures Resume Keppra 500mg bid for now Ativan IV PRN seizure > 5 min or for cluster Limit sedating medications where possible Other medical management per primary Will follow clinically Consultation Date/Type/Reason Admit Date/Time Nov 25, 2018 at 23:49 Type of Consult Neurology Reason for Consultation seizures Requesting Provider: JOE MUNOZ Date/Time of Note DATE: 12/05/18 TIME: 11:05 Hx of Present Illness The pt is currently unable to contribute a hx. Yesterday, 12/04, a [employer] was called for multiple witnessed seizure episodes. She was given 2mg of ativan and loaded with 1g of Keppra, with eventual resolution of sx. It is elsewhere noted: Hx of Present Illness Chief complaint: Hypertension, low oxygenation and boarding care The following history was obtained from the ED physician documentation as well as from the daughter Britany over the phone as patient was not able to provide history given her Alzheimer's. This 88-year-old female brought in by ambulance from her board and care for low oxygen saturations and hypotension. However when ambulance did her vitals, they did not note any low blood pressure. Her oxygen saturation was in the 90s. P atient is otherwise altered and unable to answer questions appropriately. She only states that she does not feel well but is unable to explain further. On exam she does not appear to be in any acute distress. She does appear to be dehydrated. She does have bilateral lower extremity edema right greater than left. Of note there was not much history provided from the boarding care aside from that the patient has Alzheimer's. And the patient's daughter did not know specifically what medications the patient was on. Subjective hx not possible: pt non-verbal Exam/Review of Systems Exam Vitals Vital Signs Date Temp Pulse Resp B/P (MAP) Pulse Ox O2 O2 Flow FiO2 Time Delivery Rate 12/05/18 77 08:26 12/05/18 98 30 08:25 12/05/18 22 08:24 12/05/18 98.0 96/51 (66) 07:33 12/04/18 BIPAP 17:08 12/04/18 3.0 14:01 Intake and Output 12/04/18 12/04/18 12/05/18 1515:00 23:00 07:00 IntakeIntake Total 100 ml 50 ml OutputOutput Total 410 ml 300 ml 250 ml BalanceBalance -310 ml -250 ml -250 ml Exam PE: Gen Appearance: No Apparent Distress HEENT: Normocephalic; on BIPAP Cardiovascular: Regular rate Abdomen: Soft Extremities: Dry NE: The patient was obtunded and nonverbal. Cranial nerve examination was limited by mental status. Pupils were equal and reactive to light. There was no afferent pupillary defect. Funduscopic examination was limited. Face was grossly symmetric, w/ present corneal and cough reflexes. Tone was normal. Muscle bulk was normal. I did not see fasciculations. The patient withdrew to noxious stimulation x 4. Coordination and gait testing was limited by mental status. Arm and leg reflexes were symmetric. Morales's sign was absent. Plantar responses were flexor. Results Result Diagram: 12/05/1828 12/05/18627 Results 24hrs Laboratory Tests Test 12/04/18 12:15 12/04/18 12:18 12/04/18 19:00 12/05/18 06:28 Blood Gas Blood arterial Blood arterial Specimen Source Arterial Blood 12/04/2018 1:30: 12/04/2018 7:15: Date Drawn 46 PM 38 PM Arterial Blood 7.141 *L 7.204 *L pH (Temp corrected) Arterial Blood 83.0 *H 69.3 H pCO2 (Temp correct) Arterial Blood 103.6 H 79.9 L pO2 (Temp corrected) Arterial Blood 27.7 H 26.7 H HCO3 Arterial Blood -3.3 L -2.7 Base Excess Arterial Blood 97.1 95.3 Oxygen Saturatio n Roberto Test ACCEPTAB ACCEPTAB Arterial Blood Right Radial Right Radial Gas Puncture Site Arterial 0.3 0.5 Blood Carboxyhem oglobin Arterial Blood 0.3 0.3 Methemoglobin Blood Gas A-a O2 12.8 52.6 H Differential Oxyhemoglobin 96.5 94.5 Percent Blood Gas 37.0 37.0 Temperature Blood Gas NASAL CANNULA MASK - BIPAP Modality FiO2 30.0 30.0 Blood Gas [facility] ABY MELENDEZ RN Critical Value Read Back Blood Gas TM MM Notified Whom Blood Gas 12/04/2018 1:39: 12/04/2018 7:23: Notified Time 45 PM 42 PM Bedside Glucose 98 Blood Gas 20.0 Respiration Rate Blood Gas Actual 20 Respiration Rate Blood Gas 22/8 IPAP/EPAP Ratio White Blood 18.2 #H Count Red Blood Count 4.23 Hemoglobin 13.1 Hematocrit 43.3 Mean Corpuscular 102.4 H Volume Mean Corpuscular 31.0 Hemoglobin Mean Corpuscular 30.3 L Hemoglobin Sarita nt Red Cell 16.8 H Distribution Width Platelet Count 96 #L Mean Platelet 12.8 H Volume Immature 0.800 H Granulocytes % Neutrophils % 90.8 H Lymphocytes % 3.9 L Monocytes % 4.1 Eosinophils % 0.1 Basophils % 0.3 Nucleated Red 0.0 Blood Cells % Immature 0.140 H Granulocytes # Neutrophils # 16.6 H Lymphocytes # 0.7 L Monocytes # 0.8 Eosinophils # 0.0 Basophils # 0.1 Nucleated Red 0.0 Blood Cells # Sodium Level 147 H Potassium Level 5.3 H Chloride Level 114 H Carbon Dioxide 26 Level Anion Gap 7 Blood Urea 53 H Nitrogen Creatinine 1.06 H Est Glomerular Filtrat Rate mL/min Glucose Level 134 # Calcium Level 9.5 Total Bilirubin 0.7 Direct Bilirubin 0.00 Indirect 0.7 Bilirubin Aspartate Amino 33 Transf (AST/SGOT ) Alanine 33 Aminotransferase (ALT/SGPT) Alkaline 113 Phosphatase Total Protein 5.6 L Albumin 2.5 L Globulin 3.10 Albumin/Globulin 0.80 Ratio Test 12/05/18 07:00 Blood Gas Blood arterial Specimen Source Arterial Blood 12/05/2018 8:00: Date Drawn 34 AM Arterial Blood 7.055 *L pH (Temp corrected) Arterial Blood 98.4 *H pCO2 (Temp correct) Arterial Blood 88.4 pO2 (Temp corrected) Arterial Blood 26.9 H HCO3 Arterial Blood -5.9 L Base Excess Arterial Blood 94.4 L Oxygen Saturatio n Roberto Test ACCEPTAB Arterial Blood Right Radial Gas Puncture Site Arterial 0.7 Blood Carboxyhem oglobin Arterial Blood 0.3 Methemoglobin Blood Gas A-a O2 9.9 Differential Oxyhemoglobin 93.5 Percent Blood Gas 37.0 Temperature Blood Gas 20.0 Respiration Rate Blood Gas Actual 28 Respiration Rate Blood Gas MASK - BIPAP Modality FiO2 30.0 Blood Gas 14 Pressure Support Blood Gas 22/8 IPAP/EPAP Ratio Blood Gas Abbe Holguin RN Critical Value Read Back Blood Gas TM Notified Whom Blood Gas 12/05/2018 8:16: Notified Time 31 AM Medications Medication Current Medications IV Flush (NS 3 ml) 3 ml PER PROTOCOL IV ; Start 11/26/18 at 00:00 Ondansetron HCl (Zofran Inj) 4 mg Q6H PRN IV NAUSEA/VOMITING; Start 11/26/18 at 00:00 Acetaminophen (Tylenol Tab) 650 mg Q6H PRN PO .PAIN 1-3 OR TEMP Last administered on 11/29/18 22:04; Admin Dose 650 MG; Start 11/26/18 at 00:00 Docusate Sodium (Colace) 100 mg Q12H PRN PO .CONSTIPATION Last administered on 11/29/18 16:12; Admin Dose 100 MG; Start 11/26/18 at 00:00 Bisacodyl (Dulcolax) 5 mg DAILY PRN PO .CONSTIPATION Last administered on 12/01/18 05:42; Admin Dose 5 MG; Start 11/26/18 at 00:00 Aspirin (Aspirin) 81 mg DAILY PO Last administered on 12/02/18 09:07; Admin Dose 81 MG; Start 11/27/18 at 09:00 Atorvastatin Calcium (Lipitor) 20 mg HS PO Last administered on 12/02/18 21:28; Admin Dose 20 MG; Start 11/26/18 at 21:00 Collagenase (Santyl) 1 applic DAILY TOP Last administered on 12/03/18 10:02; Admin Dose 1 APPLIC; Start 11/28/18 at 09:00 Ceftriaxone Sodium 50 ml @ 100 mls/hr Q24H IVPB Last administered on 12/04/18 14:45; Admin Dose 100 MLS/HR; Start 11/29/18 at 14:00 Multivitamins/ Minerals (Theragran-M) 1 tab DAILY PO Last administered on 12/02/18 09:07; Admin Dose 1 TAB; Start 12/01/18 at 09:00 Ascorbic Acid (Vitamin C) 250 mg DAILY PO Last administered on 12/02/18at 09:06; Admin Dose 250 MG; Start 12/01/18 at 09:00; Stop 12/11/18 at 09:00 Zinc Sulfate (Zinc Sulfate) 220 mg DAILY PO Last administered on 12/02/18at 09:07; Admin Dose 220 MG; Start 12/01/18 at 09:00; Stop 12/11/18 at 09:00 Albuterol/ Ipratropium (Duoneb) 3 ml Q6H RESP THERAPY HHN Last administered on 12/05/18at 08:24; Admin Dose 3 ML; Start 12/04/18 at 11:00 Albumin Human 100 ml @ 100 mls/hr Q8H IV Last administered on 12/05/18at 10:20; Admin Dose 100 MLS/HR; Start 12/05/18 at 08:30; Stop 12/06/18 at 01:29 Past Medical History reviewed Medical History: congestive heart failure, coronary artery disease Home Meds Active Scripts Furosemide (Lasix) 20 Mg Tab, 20 MG PO DAILY, #60 TAB Prov:SHAY SANTILLAN 11/29/18 Aspirin (Aspirin) 81 Mg Chew, 81 MG PO DAILY, #60 TAB Prov:SHAY SANTILLAN 11/29/18 Atorvastatin Calcium (Atorvastatin Calcium) 20 Mg Tablet, 20 MG PO HS, #60 TAB Prov:SHAY SANTILLAN 11/29/18 Medications Current Medications IV Flush (NS 3 ml) 3 ml PER PROTOCOL IV ; Start 11/26/18 at 00:00 Ondansetron HCl (Zofran Inj) 4 mg Q6H PRN IV NAUSEA/VOMITING; Start 11/26/18 at 00:00 Acetaminophen (Tylenol Tab) 650 mg Q6H PRN PO .PAIN 1-3 OR TEMP Last administered on 11/29/18at 22:04; Admin Dose 650 MG; Start 11/26/18 at 00:00 Docusate Sodium (Colace) 100 mg Q12H PRN PO .CONSTIPATION Last administered on 11/29/18at 16:12; Admin Dose 100 MG; Start 11/26/18 at 00:00 Bisacodyl (Dulcolax) 5 mg DAILY PRN PO .CONSTIPATION Last administered on 12/01/18 05:42; Admin Dose 5 MG; Start 11/26/18 at 00:00 Aspirin (Aspirin) 81 mg DAILY PO Last administered on 12/02/18 09:07; Admin Dose 81 MG; Start 11/27/18 at 09:00 Atorvastatin Calcium (Lipitor) 20 mg HS PO Last administered on 12/02/18 21:28; Admin Dose 20 MG; Start 11/26/18 at 21:00 Collagenase (Santyl) 1 applic DAILY TOP Last administered on 12/03/18 10:02; Admin Dose 1 APPLIC; Start 11/28/18 at 09:00 Ceftriaxone Sodium 50 ml @ 100 mls/hr Q24H IVPB Last administered on 12/04/18 14:45; Admin Dose 100 MLS/HR; Start 11/29/18 at 14:00 Multivitamins/ Minerals (Theragran-M) 1 tab DAILY PO Last administered on 12/02 09:07; Admin Dose 1 TAB; Start 12/01/18 at 09:00 Ascorbic Acid (Vitamin C) 250 mg DAILY PO Last administered on 12/02/18 09:06; Admin Dose 250 MG; Start 12/01/18 at 09:00; Stop 12/11/18 at 09:00 Zinc Sulfate (Zinc Sulfate) 220 mg DAILY PO Last administered on 12/02/18 09:07; Admin Dose 220 MG; Start 12/01/18 at 09:00; Stop 12/11/18 at 09:00 Albuterol/ Ipratropium (Duoneb) 3 ml Q6H RESP THERAPY HHN Last administered on 12/05/18 08:24; Admin Dose 3 ML; Start 12/04/18 at 11:00 Albumin Human 100 ml @ 100 mls/hr Q8H IV Last administered on 12/05/18 10:20; Admin Dose 100 MLS/HR; Start 12/05/18 at 08:30; Stop 12/06/18 at 01:29 Allergies: Coded Allergies: No Known Allergy (Unverified , 11/25/18) Past Surgical History reviewed Past Surgical Hx: no surgical history Social History reviewed Alcohol Use: none Smoking Status: Never smoker Drug Use: none RICHIE MONET NP Dec 05, 2018 11:05 IGNACIO GARZA Dec 05, 2018 13:12
--- NOTE | 2018-12-05 12:11 | CONS ---
Consult Date/Type/Reason Admit Date/Time Nov 25, 2018 at 23:49 Initial Consult Date 11/26/18 Type of Consult Pulmonary Requesting Provider: JOE MUNOZ Date/Time of Note DATE: 12/05/18 TIME: 12:10 Subjective Unresponsive on bilevel ventilation. Agonal respiration. Severe hypercapnic respiratory failure and arterial blood gas. Objective Vital Signs Date Temp Pulse Resp B/P (MAP) Pulse Ox O2 O2 Flow FiO2 Time Delivery Rate 12/05/18 98.4 59 18 95/55 (68) 97 11:48 12/05/18 30 08:25 12/04/18 BIPAP 17:08 12/04/18 3.0 14:01 Intake and Output 12/04/18 12/04/18 12/05/18 1515:00 23:00 07:00 IntakeIntake Total 100 ml 50 ml OutputOutput Total 410 ml 300 ml 250 ml BalanceBalance -310 ml -250 ml -250 ml Exam PHYSICAL EXAMINATION: GENERAL: Elderly-appearing lady on supplemental O2. VITAL SIGNS: NECK: Supple. No JVD or lymphadenopathy. CARDIAC: S1, S2. II/ systolic ejection murmur. CHEST: Diminished air entry bilaterally. ABDOMEN: Soft, nontender. No guarding or rebound. EXTREMITIES: No cyanosis, clubbing. A 2+ edema. NEUROLOGIC: Generalized weakness. Vent Setting Fraction of Inspired Oxygen pe: 30 Results/Medications Result Diagram: 12/05/18 0628 12/05/18 0628 Results 24 hrs Laboratory Tests Test 12/04/18 12:15 12/04/18 12:18 12/04/18 19:00 12/05/18 06:28 Blood Gas Blood arterial Blood arterial Specimen Source Arterial Blood 12/04/2018 1:30: 12/04/2018 7:15: Date Drawn 46 PM 38 PM Arterial Blood 7.141 *L 7.204 *L pH (Temp corrected) Arterial Blood 83.0 *H 69.3 H pCO2 (Temp correct) Arterial Blood 103.6 H 79.9 L pO2 (Temp corrected) Arterial Blood 27.7 H 26.7 H HCO3 Arterial Blood -3.3 L -2.7 Base Excess Arterial Blood 97.1 95.3 Oxygen Saturatio n Roberto Test ACCEPTAB ACCEPTAB Arterial Blood Right Radial Right Radial Gas Puncture Site Arterial 0.3 0.5 Blood Carboxyhem oglobin Arterial Blood 0.3 0.3 Methemoglobin Blood Gas A-a O2 12.8 52.6 H Differential Oxyhemoglobin 96.5 94.5 Percent Blood Gas 37.0 37.0 Temperature Blood Gas NASAL CANNULA MASK - BIPAP Modality FiO2 30.0 30.0 Blood Gas [facility] ABY MELENDEZ RN Critical Value Read Back Blood Gas TM MM Notified Whom Blood Gas 12/04/2018 1:39: 12/04/2018 7:23: Notified Time 45 PM 42 PM Bedside Glucose 98 Blood Gas 20.0 Respiration Rate Blood Gas Actual 20 Respiration Rate Blood Gas 22/8 IPAP/EPAP Ratio White Blood 18.2 #H Count Red Blood Count 4.23 Hemoglobin 13.1 Hematocrit 43.3 Mean Corpuscular 102.4 H Volume Mean Corpuscular 31.0 Hemoglobin Mean Corpuscular 30.3 L Hemoglobin Sarita nt Red Cell 16.8 H Distribution Width Platelet Count 96 #L Mean Platelet 12.8 H Volume Immature 0.800 H Granulocytes % Neutrophils % 90.8 H Lymphocytes % 3.9 L Monocytes % 4.1 Eosinophils % 0.1 Basophils % 0.3 Nucleated Red 0.0 Blood Cells % Immature 0.140 H Granulocytes # Neutrophils # 16.6 H Lymphocytes # 0.7 L Monocytes # 0.8 Eosinophils # 0.0 Basophils # 0.1 Nucleated Red 0.0 Blood Cells # Sodium Level 147 H Potassium Level 5.3 H Chloride Level 114 H Carbon Dioxide 26 Level Anion Gap 7 Blood Urea 53 H Nitrogen Creatinine 1.06 H Est Glomerular Filtrat Rate mL/min Glucose Level 134 # Calcium Level 9.5 Total Bilirubin 0.7 Direct Bilirubin 0.00 Indirect 0.7 Bilirubin Aspartate Amino 33 Transf (AST/SGOT ) Alanine 33 Aminotransferase (ALT/SGPT) Alkaline 113 Phosphatase Total Protein 5.6 L Albumin 2.5 L Globulin 3.10 Albumin/Globulin 0.80 Ratio Test 12/05/18 07:00 Blood Gas Blood arterial Specimen Source Arterial Blood 12/05/2018 8:00: Date Drawn 34 AM Arterial Blood 7.055 *L pH (Temp corrected) Arterial Blood 98.4 *H pCO2 (Temp correct) Arterial Blood 88.4 pO2 (Temp corrected) Arterial Blood 26.9 H HCO3 Arterial Blood -5.9 L Base Excess Arterial Blood 94.4 L Oxygen Saturatio n Roberto Test ACCEPTAB Arterial Blood Right Radial Gas Puncture Site Arterial 0.7 Blood Carboxyhem oglobin Arterial Blood 0.3 Methemoglobin Blood Gas A-a O2 9.9 Differential Oxyhemoglobin 93.5 Percent Blood Gas 37.0 Temperature Blood Gas 20.0 Respiration Rate Blood Gas Actual 28 Respiration Rate Blood Gas MASK - BIPAP Modality FiO2 30.0 Blood Gas 14 Pressure Support Blood Gas 22/8 IPAP/EPAP Ratio Blood Gas Abbe Holguin RN Critical Value Read Back Blood Gas TM Notified Whom Blood Gas 12/05/2018 8:16: Notified Time 31 AM Medications Current Medications IV Flush (NS 3 ml) 3 ml PER PROTOCOL IV ; Start 11/26/18 at 00:00 Ondansetron HCl (Zofran Inj) 4 mg Q6H PRN IV NAUSEA/VOMITING; Start 11/26/18 at 00:00 Acetaminophen (Tylenol Tab) 650 mg Q6H PRN PO .PAIN 1-3 OR TEMP Last administered on 11/29/18 22:04; Admin Dose 650 MG; Start 11/26/18 at 00:00 Docusate Sodium (Colace) 100 mg Q12H PRN PO .CONSTIPATION Last administered on 11/29/18 16:12; Admin Dose 100 MG; Start 11/26/18 at 00:00 Bisacodyl (Dulcolax) 5 mg DAILY PRN PO .CONSTIPATION Last administered on 12/01/18 05:42; Admin Dose 5 MG; Start 11/26/18 at 00:00 Aspirin (Aspirin) 81 mg DAILY PO Last administered on 12/02/18 09:07; Admin Dose 81 MG; Start 11/27/18 at 09:00 Atorvastatin Calcium (Lipitor) 20 mg HS PO Last administered on 12/02/18 21:28; Admin Dose 20 MG; Start 11/26/18 at 21:00 Collagenase (Santyl) 1 applic DAILY TOP Last administered on 12/03/18 10:02; Admin Dose 1 APPLIC; Start 11/28/18 at 09:00 Multivitamins/ Minerals (Theragran-M) 1 tab DAILY PO Last administered on 12/02/18 09:07; Admin Dose 1 TAB; Start 12/01/18 at 09:00 Ascorbic Acid (Vitamin C) 250 mg DAILY PO Last administered on 12/02/18at 09:06; Admin Dose 250 MG; Start 12/01/18 at 09:00; Stop 12/11/18 at 09:00 Zinc Sulfate (Zinc Sulfate) 220 mg DAILY PO Last administered on 12/02/18at 09:07; Admin Dose 220 MG; Start 12/01/18 at 09:00; Stop 12/11/18 at 09:00 Albuterol/ Ipratropium (Duoneb) 3 ml Q6H RESP THERAPY HHN Last administered on 12/05/18at 08:24; Admin Dose 3 ML; Start 12/04/18 at 11:00 Albumin Human 100 ml @ 100 mls/hr Q8H IV Last administered on 12/05/18at 10:20; Admin Dose 100 MLS/HR; Start 12/05/18 at 08:30; Stop 12/06/18 at 01:29 Piperacillin Sod/ Tazobactam Sod 100 ml @ 200 mls/hr Q8 IVPB ; Start 12/05/18 at 14:00 Levetiracetam 100 ml @ 400 mls/hr Q12 IVPB ; Start 12/05/18 at 12:30 Lorazepam (Ativan) 1 mg Q10MIN PRN IV seizures; Start 12/05/18 at 12:30 Assessment/Plan Hospital Course (Demo Recall) IMPRESSION AND PLAN: Significant deterioration the patient has marked encephalopathy. 1. Acute hypoxemic and hypercapnic respiratory failure. 2. Congestive cardiac failure with pleural effusion. 3. Group B sepsis. Discussed with nursing staff and primary team. Family transitioning to comfort care. BEAU MARTINS MD, [facility] Dec 05, 2018 12:11
[2018-12-05] MEDS ORDERED: LEVETIRACETAM 500 MG (PMX) 100 ML IVPB SCH (12:30)
[2018-12-05] MEDS ORDERED: LORAZEPAM 2 MG INJ IV PRN (12:30)
--- NOTE | 2018-12-05 13:26 | CONS ---
Assessment/Plan Assessment/Plan Hospital Course (Demo Recall) Patient is noncommunicative, on Bipap, looks comfortable, no fevers Chest x-ray revealed cardiomegaly. Partial clearing bibasilar infiltrates and effusions, right greater than left compatible with partially treated pneumonia. WBC today 18.2 with neutrophils 90.8 Blood cultures and urine cx on admission grew strep agalactiae gallbladder fluid culture also growing strep agalactiae, repeat blood cultures negative Antimicrobials: Rocephin Indwelling: Right upper quadrant pigtail, Cabrera catheter Physical examination: Fragile well-developed elderly woman in no acute distress. Head atraumatic normocephalic sclera nonicteric. Neck is supple chest rise symmetrical breath sounds diminished bases. Heart: S1-S2. Abdomen soft bowel sounds present extremities without cyanosis Assessment: 1. Severe sepsis 2. Acute hypoxemic respiratory failure secondary to pneumonia 3. Acute encephalopathy, rule out CVA versus other 4. Strep bacteremia 5. Strep urinary tract infection 6. Cholecystitis, status post CT-guided cholecystostomy catheter placement 7. Non-ST elevation SC Plan: We are going to change antibiotics to Zosyn and repeat cultures. Prognosis guarded. Patient is DNR status Consultation Date/Type/Reason Admit Date/Time Nov 25, 2018 at 23:49 Initial Consult Date 11/26/18 Type of Consult id Requesting Provider: JOE MUNOZ Date/Time of Note DATE: 12/05/18 TIME: 13:23 Exam/Review of Systems Exam Vitals Vital Signs Date Temp Pulse Resp B/P (MAP) Pulse Ox O2 O2 Flow FiO2 Time Delivery Rate 12/05/18 59 12:13 12/05/18 98.4 18 95/55 (68) 97 11:48 12/05/18 30 11:40 12/04/18 BIPAP 17:08 12/04/18 3.0 14:01 Intake and Output 12/04/18 12/04/18 12/05/18 1515:00 23:00 07:00 IntakeIntake Total 100 ml 50 ml OutputOutput Total 410 ml 300 ml 250 ml BalanceBalance -310 ml -250 ml -250 ml Results Result Diagram: 12/05/18 0628 12/05/18 0628 Results 24hrs Laboratory Tests Test 12/04/18 19:00 12/05/18 06:28 12/05/18 07:00 Blood Gas Specimen Blood arterial Blood arterial Source Arterial Blood Date 12/04/2018 7:15:38 PM 12/05/2018 8:00:34 AM Drawn Arterial Blood pH 7.204 *L 7.055 *L (Temp corrected) Arterial Blood pCO2 69.3 H 98.4 *H (Temp correct) Arterial Blood pO2 79.9 L 88.4 (Temp corrected) Arterial Blood HCO3 26.7 H 26.9 H Arterial Blood Base -2.7 -5.9 L Excess Arterial Blood 95.3 94.4 L Oxygen Saturation Roberto Test ACCEPTAB ACCEPTAB Arterial Blood Gas Right Radial Right Radial Puncture Site Arterial 0.5 0.7 Blood Carboxyhemoglob in Arterial Blood 0.3 0.3 Methemoglobin Blood Gas A-a O2 52.6 H 9.9 Differential Oxyhemoglobin Percent 94.5 93.5 Blood Gas Temperature 37.0 37.0 Blood Gas Respiration 20.0 20.0 Rate Blood Gas Actual 20 28 Respiration Rate Blood Gas Modality MASK - BIPAP MASK - BIPAP FiO2 30.0 30.0 Blood Gas IPAP/EPAP 22/8 22/8 Ratio Blood Gas Critical AL, RN Abbe Holguin RN Value Read Back Blood Gas Notified MM TM Whom Blood Gas Notified 12/04/2018 7:23:42 PM 12/05/2018 8:16:31 AM Time White Blood Count 18.2 #H Red Blood Count 4.23 Hemoglobin 13.1 Hematocrit 43.3 Mean Corpuscular 102.4 H Volume Mean Corpuscular 31.0 Hemoglobin Mean Corpuscular 30.3 L Hemoglobin Concent Red Cell Distribution 16.8 H Width Platelet Count 96 #L Mean Platelet Volume 12.8 H Immature Granulocytes 0.800 H % Neutrophils % 90.8 H Lymphocytes % 3.9 L Monocytes % 4.1 Eosinophils % 0.1 Basophils % 0.3 Nucleated Red Blood 0.0 Cells % Immature Granulocytes 0.140 H # Neutrophils # 16.6 H Lymphocytes # 0.7 L Monocytes # 0.8 Eosinophils # 0.0 Basophils # 0.1 Nucleated Red Blood 0.0 Cells # Sodium Level 147 H Potassium Level 5.3 H Chloride Level 114 H Carbon Dioxide Level 26 Anion Gap 7 Blood Urea Nitrogen 53 H Creatinine 1.06 H Est Glomerular Filtrat Rate mL/min Glucose Level 134 # Calcium Level 9.5 Total Bilirubin 0.7 Direct Bilirubin 0.00 Indirect Bilirubin 0.7 Aspartate Amino 33 Transf (AST/SGOT) Alanine 33 Aminotransferase (ALT /SGPT) Alkaline Phosphatase 113 Total Protein 5.6 L Albumin 2.5 L Globulin 3.10 Albumin/Globulin 0.80 Ratio Blood Gas Pressure 14 Support Medications Medication Current Medications IV Flush (NS 3 ml) 3 ml PER PROTOCOL IV ; Start 11/26/18 at 00:00 Ondansetron HCl (Zofran Inj) 4 mg Q6H PRN IV NAUSEA/VOMITING; Start 11/26/18 at 00:00 Acetaminophen (Tylenol Tab) 650 mg Q6H PRN PO .PAIN 1-3 OR TEMP Last administered on 11/29/18 22:04; Admin Dose 650 MG; Start 11/26/18 at 00:00 Docusate Sodium (Colace) 100 mg Q12H PRN PO .CONSTIPATION Last administered on 11/29/18 16:12; Admin Dose 100 MG; Start 11/26/18 at 00:00 Bisacodyl (Dulcolax) 5 mg DAILY PRN PO .CONSTIPATION Last administered on 12/01/18 05:42; Admin Dose 5 MG; Start 11/26/18 at 00:00 Aspirin (Aspirin) 81 mg DAILY PO Last administered on 12/02/18 09:07; Admin Dose 81 MG; Start 11/27/18 at 09:00 Atorvastatin Calcium (Lipitor) 20 mg HS PO Last administered on 12/02/18 21:28; Admin Dose 20 MG; Start 11/26/18 at 21:00 Collagenase (Santyl) 1 applic DAILY TOP Last administered on 12/03/18 10:02; Admin Dose 1 APPLIC; Start 11/28/18 at 09:00 Multivitamins/ Minerals (Theragran-M) 1 tab DAILY PO Last administered on 12/02/18 09:07; Admin Dose 1 TAB; Start 12/01/18 at 09:00 Ascorbic Acid (Vitamin C) 250 mg DAILY PO Last administered on 12/02/18 09:06; Admin Dose 250 MG; Start 12/01/18 at 09:00; Stop 12/11/18 at 09:00 Zinc Sulfate (Zinc Sulfate) 220 mg DAILY PO Last administered on 12/02/18 09:07; Admin Dose 220 MG; Start 12/01/18 at 09:00; Stop 12/11/18 at 09:00 Albuterol/ Ipratropium (Duoneb) 3 ml Q6H RESP THERAPY HHN Last administered on 12/05/18at 08:24; Admin Dose 3 ML; Start 12/04/18 at 11:00 Albumin Human 100 ml @ 100 mls/hr Q8H IV Last administered on 12/05/18at 10:20; Admin Dose 100 MLS/HR; Start 12/05/18 at 08:30; Stop 12/06/18 at 01:29 Piperacillin Sod/ Tazobactam Sod 100 ml @ 200 mls/hr Q8 IVPB ; Start 12/05/18 at 14:00 Levetiracetam 100 ml @ 400 mls/hr Q12 IVPB ; Start 12/05/18 at 12:30 Lorazepam (Ativan) 1 mg Q10MIN PRN IV seizures; Start 12/05/18 at 12:30 DAYAN DENT NP Dec 05, 2018 13:26
[2018-12-05] MEDS ORDERED: PIPER-TAZO 3.375 GM IV (PMX) 100 ML IVPB SCH (14:00)
[2018-12-05] MEDS: BALSAM PERU/CASTOR OIL 60 GM TUBE TOP SCH (14:26)
--- NOTE | 2018-12-05 14:27 | PN ---
Date/Time of Note Date/Time of Note DATE: 12/05/18 TIME: 14:25 Assessment/Plan VTE Prophylaxis Risk score (from Ns)>0 risk: 10 SCD applied (from Nsg): Yes Pharmacological prophylaxis: heparin Lines/Catheters IV Catheter Type (from Nrsg): Peripheral IV Urinary Cath still in place: Yes Reason Cath still needed: urinary retention Assessment/Plan Hospital Course EXAM: Breathing comfortably Mild tachypnea + JVD 2/6 systolic murmur Tachypneic, nonlabored Abdomen soft, mild tenderness to deep palpation in RUQ No peripheral edema A/P: 88 yo female with dementia who presented with respiratory distress and hypotension. Found to have systolic CHF, , bacteremia and cholecystitis Acute systolic CHF with causing b/l pleural effusions and respiratory failure: - Continue diuretics Seizure: - Dr Courtney consulted - Ativan PRN - Keppra given Acute on chornic hypercapneic respiratoyr failure: - Contionue BIPAP, bronchodilators bacteremia with possible cholecytisis: - Continue abx per ID. s/p C tube Dementia: - Stable NSTEMI: - Likely type II MT DNR per family Continue to discuss hospice as poor prognosis Result Diagram: 12/05/1862712/05/18627 Results 24hrs Laboratory Tests Test 12/04/18 19:00 12/05/18 06:28 12/05/18 07:00 Blood Gas Specimen Blood arterial Blood arterial Source Arterial Blood Date 12/04/2018 7:15:38 PM 12/05/2018 8:00:34 AM Drawn Arterial Blood pH 7.204 *L 7.055 *L (Temp corrected) Arterial Blood pCO2 69.3 H 98.4 *H (Temp correct) Arterial Blood pO2 79.9 L 88.4 (Temp corrected) Arterial Blood HCO3 26.7 H 26.9 H Arterial Blood Base -2.7 -5.9 L Excess Arterial Blood 95.3 94.4 L Oxygen Saturation Roberto Test ACCEPTAB ACCEPTAB Arterial Blood Gas Right Radial Right Radial Puncture Site Arterial 0.5 0.7 Blood Carboxyhemoglob in Arterial Blood 0.3 0.3 Methemoglobin Blood Gas A-a O2 52.6 H 9.9 Differential Oxyhemoglobin Percent 94.5 93.5 Blood Gas Temperature 37.0 37.0 Blood Gas Respiration 20.0 20.0 Rate Blood Gas Actual 20 28 Respiration Rate Blood Gas Modality MASK - BIPAP MASK - BIPAP FiO2 30.0 30.0 Blood Gas IPAP/EPAP 22/8 22/8 Ratio Blood Gas Critical ABY MELENDEZ RN Value Read Back Blood Gas Notified MM TM Whom Blood Gas Notified 12/04/2018 7:23:42 PM 12/05/2018 8:16:31 AM Time White Blood Count 18.2 #H Red Blood Count 4.23 Hemoglobin 13.1 Hematocrit 43.3 Mean Corpuscular 102.4 H Volume Mean Corpuscular 31.0 Hemoglobin Mean Corpuscular 30.3 L Hemoglobin Concent Red Cell Distribution 16.8 H Width Platelet Count 96 #L Mean Platelet Volume 12.8 H Immature Granulocytes 0.800 H % Neutrophils % 90.8 H Lymphocytes % 3.9 L Monocytes % 4.1 Eosinophils % 0.1 Basophils % 0.3 Nucleated Red Blood 0.0 Cells % Immature Granulocytes 0.140 H # Neutrophils # 16.6 H Lymphocytes # 0.7 L Monocytes # 0.8 Eosinophils # 0.0 Basophils # 0.1 Nucleated Red Blood 0.0 Cells # Sodium Level 147 H Potassium Level 5.3 H Chloride Level 114 H Carbon Dioxide Level 26 Anion Gap 7 Blood Urea Nitrogen 53 H Creatinine 1.06 H Est Glomerular Filtrat Rate mL/min Glucose Level 134 # Calcium Level 9.5 Total Bilirubin 0.7 Direct Bilirubin 0.00 Indirect Bilirubin 0.7 Aspartate Amino 33 Transf (AST/SGOT) Alanine 33 Aminotransferase (ALT /SGPT) Alkaline Phosphatase 113 Total Protein 5.6 L Albumin 2.5 L Globulin 3.10 Albumin/Globulin 0.80 Ratio Blood Gas Pressure 14 Support Subjective 24 Hr Interval Summary Free Text/Dictation Patinet decopmensating from respiratory, renal, mental status Appeasr to be dying actively Family now interested in hospice Exam/Review of Systems Exam Vitals Vital Signs Date Temp Pulse Resp B/P (MAP) Pulse Ox O2 O2 Flow FiO2 Time Delivery Rate 12/05/18 63 20 95 30 14:10 12/05/18 98.4 95/55 (68) 11:48 12/04/18 BIPAP 17:08 12/04/18 3.0 14:01 Intake and Output 12/04/18 12/04/18 12/05/18 1414:59 22:59 06:59 IntakeIntake Total 100 ml 50 ml OutputOutput Total 410 ml 300 ml 250 ml BalanceBalance -310 ml -250 ml -250 ml Results Results 24hrs Laboratory Tests Test 12/04/18 19:00 12/05/18 06:28 12/05/18 07:00 Blood Gas Specimen Blood arterial Blood arterial Source Arterial Blood Date 12/04/2018 7:15:38 PM 12/05/2018 8:00:34 AM Drawn Arterial Blood pH 7.204 *L 7.055 *L (Temp corrected) Arterial Blood pCO2 69.3 H 98.4 *H (Temp correct) Arterial Blood pO2 79.9 L 88.4 (Temp corrected) Arterial Blood HCO3 26.7 H 26.9 H Arterial Blood Base -2.7 -5.9 L Excess Arterial Blood 95.3 94.4 L Oxygen Saturation Roberto Test ACCEPTAB ACCEPTAB Arterial Blood Gas Right Radial Right Radial Puncture Site Arterial 0.5 0.7 Blood Carboxyhemoglob in Arterial Blood 0.3 0.3 Methemoglobin Blood Gas A-a O2 52.6 H 9.9 Differential Oxyhemoglobin Percent 94.5 93.5 Blood Gas Temperature 37.0 37.0 Blood Gas Respiration 20.0 20.0 Rate Blood Gas Actual 20 28 Respiration Rate Blood Gas Modality MASK - BIPAP MASK - BIPAP FiO2 30.0 30.0 Blood Gas IPAP/EPAP 22/8 22/8 Ratio Blood Gas Critical AL, RN Abbe Holguin RN Value Read Back Blood Gas Notified MM TM Whom Blood Gas Notified 12/04/2018 7:23:42 PM 12/05/2018 8:16:31 AM Time White Blood Count 18.2 #H Red Blood Count 4.23 Hemoglobin 13.1 Hematocrit 43.3 Mean Corpuscular 102.4 H Volume Mean Corpuscular 31.0 Hemoglobin Mean Corpuscular 30.3 L Hemoglobin Concent Red Cell Distribution 16.8 H Width Platelet Count 96 #L Mean Platelet Volume 12.8 H Immature Granulocytes 0.800 H % Neutrophils % 90.8 H Lymphocytes % 3.9 L Monocytes % 4.1 Eosinophils % 0.1 Basophils % 0.3 Nucleated Red Blood 0.0 Cells % Immature Granulocytes 0.140 H # Neutrophils # 16.6 H Lymphocytes # 0.7 L Monocytes # 0.8 Eosinophils # 0.0 Basophils # 0.1 Nucleated Red Blood 0.0 Cells # Sodium Level 147 H Potassium Level 5.3 H Chloride Level 114 H Carbon Dioxide Level 26 Anion Gap 7 Blood Urea Nitrogen 53 H Creatinine 1.06 H Est Glomerular Filtrat Rate mL/min Glucose Level 134 # Calcium Level 9.5 Total Bilirubin 0.7 Direct Bilirubin 0.00 Indirect Bilirubin 0.7 Aspartate Amino 33 Transf (AST/SGOT) Alanine 33 Aminotransferase (ALT /SGPT) Alkaline Phosphatase 113 Total Protein 5.6 L Albumin 2.5 L Globulin 3.10 Albumin/Globulin 0.80 Ratio Blood Gas Pressure 14 Support Medications Medication Current Medications IV Flush (NS 3 ml) 3 ml PER PROTOCOL IV ; Start 11/26/18 at 00:00 Ondansetron HCl (Zofran Inj) 4 mg Q6H PRN IV NAUSEA/VOMITING; Start 11/26/18 at 00:00 Acetaminophen (Tylenol Tab) 650 mg Q6H PRN PO .PAIN 1-3 OR TEMP Last administered on 11/29/18 22:04; Admin Dose 650 MG; Start 11/26/18 at 00:00 Docusate Sodium (Colace) 100 mg Q12H PRN PO .CONSTIPATION Last administered on 11/29/18 16:12; Admin Dose 100 MG; Start 11/26/18 at 00:00 Bisacodyl (Dulcolax) 5 mg DAILY PRN PO .CONSTIPATION Last administered on 12/01/18 05:42; Admin Dose 5 MG; Start 11/26/18 at 00:00 Aspirin (Aspirin) 81 mg DAILY PO Last administered on 12/02/18 09:07; Admin Dose 81 MG; Start 11/27/18 at 09:00 Atorvastatin Calcium (Lipitor) 20 mg HS PO Last administered on 12/02/18 21:28; Admin Dose 20 MG; Start 11/26/18 at 21:00 Collagenase (Santyl) 1 applic DAILY TOP Last administered on 12/03/18 10:02; Admin Dose 1 APPLIC; Start 11/28/18 at 09:00 Multivitamins/ Minerals (Theragran-M) 1 tab DAILY PO Last administered on 12/02/18 09:07; Admin Dose 1 TAB; Start 12/01/18 at 09:00 Ascorbic Acid (Vitamin C) 250 mg DAILY PO Last administered on 12/02/18at 09:06; Admin Dose 250 MG; Start 12/01/18 at 09:00; Stop 12/11/18 at 09:00 Zinc Sulfate (Zinc Sulfate) 220 mg DAILY PO Last administered on 12/02/18at 09:07; Admin Dose 220 MG; Start 12/01/18 at 09:00; Stop 12/11/18 at 09:00 Albuterol/ Ipratropium (Duoneb) 3 ml Q6H RESP THERAPY HHN Last administered on 12/05/18at 14:10; Admin Dose 3 ML; Start 12/04/18 at 11:00 Albumin Human 100 ml @ 100 mls/hr Q8H IV Last administered on 12/05/18at 10:20; Admin Dose 100 MLS/HR; Start 12/05/18 at 08:30; Stop 12/06/18 at 01:29 Piperacillin Sod/ Tazobactam Sod 100 ml @ 200 mls/hr Q8 IVPB ; Start 12/05/18 at 14:00 Levetiracetam 100 ml @ 400 mls/hr Q12 IVPB ; Start 12/05/18 at 12:30 Lorazepam (Ativan) 1 mg Q10MIN PRN IV seizures; Start 12/05/18 at 12:30 SCOTT JAIME MD Dec 05, 2018 14:27
[2018-12-05] MEDS: COLLAGENASE 5 GM (UD JAR) TOP SCH (14:31)
[2018-12-05] MEDS: morphine (DRIP) 100 MG/100 ML 100 ML IV SCH ×2 (20:46→21:53)
[2018-12-06] VITALS: PULSE 62
[2018-12-06 00:42] VITALS: PULSE 54
[2018-12-06 01:12] VITALS: PULSE 40
[2018-12-06 01:23] VITALS: PULSE 0
--- NOTE | 2018-12-06 01:52 | QN ---
Documentation Comment Pronouncement note Patient seen and examined at the bedside. Patient nonresponsive to tactile and verbal stimuli. Patient nonresponsive to vigorous sternal rub. Pupils fixed and nonreactive to light bilaterally. No heart sounds appreciated on auscultation. Patient pronounced at approximately 1:46 AM. Family present at the bedside. Primary team aware. JOE MUNOZ Dec 06, 2018 01:52
[2018-12-06 04:00] VITALS: PULSE 54
--- NOTE | 2018-12-06 14:02 | DES ---
Date/Time of Note Date/Time of Note DATE: 12/06/18 TIME: 14:01 Discharge/ Summary Admission/Discharge Info Admit Date/Time Nov 25, 2018 at 23:49 Final Diagnosis Multiorgan failure, sepsis, respiratory faiulre Preliminary Cause of Respiratory falre Hospital Course 88 yo female with dementia who presented with respiratory distress and hypotension. Found to have systolic CHF, , bacteremia and cholecystitis Patient was given diuretics for respriatory failure. Found to have volume overload wtih severe and systolic CHF. A cholecystostomy was performed for cholecystitis. She progressed into multiorgan failure. She began having seizures. Grave state of health was discussed with her family who agreed with hospice care. She was given comfort measures and shortly thereafter SCOTT JAIME MD Dec 06, 2018 14:02
== END 2018-12-06 01:46 | disposition expired | DRG 871 ==
LOC: E/R 21:15 → 6WM 23:49 → MS1 12-01 01:45 → TEL 12-03 11:16
PROVIDERS: ADMIT Family Medicine; ATTEND Internal Medicine
PROC: 0F9430Z Drainage of Gallbladder with Drainage Device, Percutaneous Approach (ICD-10-PCS; principal; 2018-11-26)
DX: A40.1 Sepsis due to streptococcus, group B (principal); I21.4 Non-ST elevation (NSTEMI) myocardial infarction; J96.01 Acute respiratory failure with hypoxia; J18.9 Pneumonia, unspecified organism; J96.02 Acute respiratory failure with hypercapnia; I21.A1 Myocardial infarction type 2; I50.23 Acute on chronic systolic (congestive) heart failure; G93.40 Encephalopathy, unspecified; N39.0 Urinary tract infection, site not specified; E87.2 Acidosis; R65.20 Severe sepsis without septic shock; D69.6 Thrombocytopenia, unspecified; E86.0 Dehydration; I48.91 Unspecified atrial fibrillation; K81.9 Cholecystitis, unspecified; G30.9 Alzheimer's disease, unspecified; F02.80 Dementia in other diseases classified elsewhere, unspecified severity, without behavioral disturbance, psychotic disturbance, mood disturbance, and anxiety; I35.0 Nonrheumatic aortic (valve) stenosis; F03.90 Unspecified dementia, unspecified severity, without behavioral disturbance, psychotic disturbance, mood disturbance, and anxiety; I25.10 Atherosclerotic heart disease of native coronary artery without angina pectoris; G40.909 Epilepsy, unspecified, not intractable, without status epilepticus; R56.9 Unspecified convulsions; Z66 Do not resuscitate
CPT/HCPCS: 36415; 36600; 70450; 71045; 74177; 76705; 77012; 80048; 80053; 80061; 80307; 81001; 82140; 82550; 82553; 82803; 82962; 83036; 83605; 83735; 83880; 84100; 84436; 84443; 84479; 84484; 85025; 87070; 87075; 87086; 92526; 92610; 93005; 93306; 93970; 94640; 94660; 95819; 96360; 96361; 97162; C1729; J0692; J0696; J1940; J1953; J2060; J2250; J2270; J2543; J3010; J3370; J7030; P9047; Q9967